=== PATIENT | female | born 1970 | race Caucasian/White ===

== ENCOUNTER 2020-09-10 11:46 | Outpatient (REF) | payer OTHER, SELFPAY ==
[2020-09-10 12:54] LABS: MANUAL DIFF FLAG NO
[2020-09-10 13:02] LABS: Basophils Percent Auto 0.3 % (0-2); Eosinophils Absolute Auto 0.4 X10*3/uL (0.0-0.4); Eosinophils Percent Auto 6.7 % (0-4); Hemoglobin 12.3 g/dl (12.0-16.0); Imm Gran Abs Auto 0.01 X10*3/uL (0.00-0.03); Imm Gran Pct Auto 0.2 % (0.0-0.4); Lymphocytes Absolute Auto 2.2 X10*3/uL (1.2-4.9); Lymphocytes Percent Auto 36.1 % (20-40); Mean Corpuscular HGB Conc 34.2 g/dl (31.0-35.0); Mean Corpuscular Hemoglobin 31.3 pg (27.0-33.0); Mean Corpuscular Volume 91.6 fL (80-98); Mean Platelet Volume 9.4 fL (9.4-12.3); Monocytes Absolute Auto 0.4 X10*3/uL (0.1-1.2); Monocytes Percent Auto 6.4 % (2-11); Neutrophils Absolute Auto 3.1 X10*3/uL (2.0-8.3); Neutrophils Percent Auto 50.3 % (45-73); Platelet Count 212 X10*3/uL (160-400); Red Blood Count 3.93 X10*6/uL (4.20-5.50); Red Cell Distribution Width 12.8 % (11.0-16.0); White Blood Count 6.1 X10*3/uL (4.8-10.8)
[2020-09-10 13:15] LABS: Alanine Aminotransferase 18 U/L (0-31); Albumin Level 4.3 g/dL (3.5-5.0); Alkaline Phosphatase 72 U/L (39-117); Anion Gap 16 (12-20); Aspartate Amino Transferase 16 U/L (5-31); Bilirubin Total 0.5 mg/dL (0.0-1.0); Blood Urea Nitrogen 15 mg/dL (9-16); Calcium 9.5 mg/dL (8.4-10.2); Carbon Dioxide 26 mmol/L (22-29); Chloride 97 mmol/L (96-108); Cholesterol 198 mg/dL; Estimated Glomerular Filt Rate 38; Glucose Random 80 mg/dL (60-115); HDL Cholesterol 60 mg/dL; LDL Cholesterol Calculated 106 mg/dl; Potassium 4.1 mmol/l (3.3-5.1); Sodium 135 mmol/L (135-145); Total Protein 7.2 g/dL (6.5-8.0); Triglycerides 163 mg/dL
[2020-09-10 13:33] LABS: Vitamin B12 251 pg/mL (200-900)
[2020-09-10 13:36] LABS: Vitamin D 25-OH Total 59.9 ng/mL (>30)
== END 2020-09-10 11:47 | disposition home or self-care (01) ==
LOC: HO.LAB 11:46
PROVIDERS: PCP Internal Medicine; Visit Provider Internal Medicine
DX: I12.9 Hypertensive chronic kidney disease with stage 1 through stage 4 chronic kidney disease, or unspecified chronic kidney disease (principal); N18.30 Chronic kidney disease, stage 3 unspecified; E78.00 Pure hypercholesterolemia, unspecified; J45.909 Unspecified asthma, uncomplicated; E66.9 Obesity, unspecified; K21.9 Gastro-esophageal reflux disease without esophagitis; E55.9 Vitamin D deficiency, unspecified
CPT/HCPCS: 36415; 80053; 80061; 82306; 82607; 84443; 85025

== ENCOUNTER 2020-12-02 11:17 | Outpatient (REF) | payer OTHER, SELFPAY ==
--- NOTE | ~2020-12-02 | MM_ITS ---
EXAMINATION: MM SCREENING DIGITAL BREAST TOMOSYNTHESIS, BILATERAL CLINICAL INFORMATION: Screening. Asymptomatic. The lifetime risk of breast cancer based on the Tyrer-Cuzick Model is 12%. COMPARISON: Mammography: 04/21/2019, 04/20/2018, 01/06/2017 TECHNIQUE: Digital breast tomosynthesis is performed in both the craniocaudal and mediolateral oblique views along with computer-aided detection (CAD). Synthesized 2D images are generated from the tomosynthesis. Additional exaggerated right CC, left CC, left MLO views are provided. FINDINGS: There are scattered areas of fibroglandular density (ACR BI-RADS breast composition Category b). There is fibronodular parenchymal pattern. The left breast appears similar to prior studies. There is no interval mass or architectural abnormality. Neither breast shows abnormal calcifications. The axilla and skin contours are unremarkable. The right MLO view has subtle irregular asymmetric density below posterior nipple line, approximately 8 cm from nipple. There is no correlate on CC view. Finding may represent summation artifact or incompletely compressed glandular tissue. Patient will be recalled for additional imaging. MM/MM tomosynthesis screening BI IMPRESSION: 1. Right: Asymmetric density central lower breast limited to MLO view, possibly summation artifact or incompletely compressed glandular tissue. 2. Left: No mammographic evidence of malignancy. ASSESSMENT: BI-RADS 0: Incomplete - Need Additional Imaging Evaluation RECOMMENDATION: 1. Additional views of the right breast (3-D spot MLO, 3-D ML). 2. Targeted ultrasound if warranted after review of the additional views. 3. Radiology department staff will contact the patient for additional imaging. This patient's information was entered into a reminder system with a target due date for their next mammogram.
== END 2020-12-02 11:18 | disposition home or self-care (01) ==
LOC: HO.MAMMO 11:17
PROVIDERS: PCP Internal Medicine; Visit Provider Internal Medicine
DX: Z12.31 Encounter for screening mammogram for malignant neoplasm of breast (principal)
CPT/HCPCS: 77063; 77067

== ENCOUNTER 2020-12-25 12:29 | Outpatient (REF) | payer OTHER, SELFPAY ==
--- NOTE | ~2020-12-25 | MM_ITS ---
EXAMINATION: MM DIAGNOSTIC DIGITAL BREAST TOMOSYNTHESIS, RIGHT CLINICAL INFORMATION: Right breast asymmetry. COMPARISON: Mammography: 12/02/2020 and studies dating back to 11/12/2011 TECHNIQUE: Digital breast tomosynthesis. Synthesized 2-D images are generated from the tomosynthesis. Performed in 90-degree mediolateral view and spot compression mediolateral oblique view. FINDINGS: There are scattered areas of fibroglandular density (ACR BI-RADS breast composition Category b). The region of density is seen to be compressed out and has a similar appearance to prior studies with no persistent suspicious underlying abnormality identified. Results are provided to the patient at time of visit by the technologist. MM/MM tomosynthesis diagnostic RT IMPRESSION: No persistent suspicious right breast abnormality identified. ASSESSMENT: BI-RADS 1: Negative. RECOMMENDATION: Routine annual mammography screening due in 12 months. This patient's information was entered into a reminder system with a target due date for their next mammogram.
== END 2020-12-25 12:30 | disposition home or self-care (01) ==
LOC: HO.MAMMO 12:29
PROVIDERS: Visit Provider Internal Medicine
DX: R92.2 Inconclusive mammogram (principal)
CPT/HCPCS: 77061; 77065

== ENCOUNTER 2021-01-13 16:30 | Outpatient (REF) | payer OTHER, SELFPAY ==
[2021-01-14 10:47] LABS: BV Int Neg Control Negative (Negative); BV Int Pos Control Positive (Positive)
[2021-01-17 12:36] LABS: HPV mRNA E6/E7 rflx Not Detected (Not Detected)
== END 2021-01-13 16:31 | disposition home or self-care (01) ==
LOC: HO.LAB 16:30
PROVIDERS: PCP Internal Medicine; Visit Provider Internal Medicine
DX: Z12.4 Encounter for screening for malignant neoplasm of cervix (principal); Z11.51 Encounter for screening for human papillomavirus (HPV)
CPT/HCPCS: 87480; 87510; 87624; 87660; 88142

== ENCOUNTER → 2021-03-19 08:54 | Outpatient (BNVA) | payer OTHER, SELFPAY | PROVIDERS: Visit Provider Physician Assistant | CPT/HCPCS: Q3014 ==

== ENCOUNTER 2021-05-01 07:23 | Day surgery (SDC) | payer OTHER, SELFPAY ==
--- NOTE | 2021-04-30 09:45 | HO.ANESPROP2 ---
Documented by User: Clarisa Jeffery NP 04/30/21 09:46 HPI - Anesthesia Eval Consult details Narrative: 51yo F for Colonoscopy PMFSH Active Problems Active Problems: All Active Problems (Updated 03/19/21 @ 10:10 by Claritza Venegas PA-C) Tubulovillous adenoma (Acute) Hematoma (Acute) Vaginal candidiasis (Acute) Cervical cancer screening (Acute) Breast density (Acute) Cyanocobalamin deficiency (Acute) Alcohol abuse (Acute) Tobacco abuse (Acute) Asthma (Acute) Hypercholesterolemia (Acute) Chronic kidney disease, stage III (moderate) (Acute) Obesity (BMI 30-39.9) (Acute) GERD (gastroesophageal reflux disease) (Acute) Hypertension (Acute) Vitamin D deficiency (Acute) Past Medical History Medical History Alcohol abuse Asthma Chronic kidney disease, stage III (moderate) GERD (gastroesophageal reflux disease) Hypercholesterolemia Hypertension Obesity (BMI 30-39.9) Tobacco abuse Tubular adenoma of colon Tubulovillous adenoma Vitamin D deficiency Family History Family History Father HTN (hypertension) CVD (cardiovascular disease) Myocardial infarct Mother Skin cancer Cancer Maternal Grandmother Breast cancer Brother No problems noted. Sister No problems noted. Surgical History Surgical History History of cholecystectomy History of tracheostomy History of ventriculoperitoneal shunting Social History Social History Household Members Other:: no kids, lives with cat, she has a boyfriend does not live with her Alcohol intake: current Alcohol intake frequency: a few times a week Alcohol type: beer Patient Tobacco Use Status: Current everyday Tobacco user Tobacco use type: Cigar Cigarette Packs Per Day: 1 Cigarettes Per Day: 20 Smoked in Last 30 Days: Yes Use of substances other than those prescribed or required for medical reasons: No Are you DNR?: No Advance Directives: No Advance Directives Information Provided: Yes Recently lost weight without trying: No Nutrition Risks: No Nutritional Risk Current occupational status: disabled Meds Allergies Allergy/AdvReac Type Severity Reaction Status Date / Time No Known Allergies Allergy Verified 03/19/21 08:54 surgical tape Allergy Unknown severe rash Uncoded 03/08/21 12:19 Exam Exam Date and Time: April 30, 2021 0945 Assessment and Plan Assessment Anesthesia Assessment: Chart Reviewed Documented by User: Diana Jessica MD 05/01/21 08:02 [facility] Past Medical History Medical History Alcohol abuse Asthma Chronic kidney disease, stage III (moderate) GERD (gastroesophageal reflux disease) Hypercholesterolemia Hypertension Obesity (BMI 30-39.9) Tobacco abuse Tubular adenoma of colon Tubulovillous adenoma Vitamin D deficiency Family History Family History Father HTN (hypertension) CVD (cardiovascular disease) Myocardial infarct Mother Skin cancer Cancer Maternal Grandmother Breast cancer Brother No problems noted. Sister No problems noted. Surgical History Surgical History History of cholecystectomy History of tracheostomy History of ventriculoperitoneal shunting History of Problems with Anesthesia: No Social History Social History Household Members Other:: no kids, lives with cat, she has a boyfriend does not live with her Alcohol intake: current Alcohol intake frequency: a few times a week Alcohol type: beer Patient Tobacco Use Status: Current everyday Tobacco user Tobacco use type: Cigar Cigarette Packs Per Day: 1 Cigarettes Per Day: 20 Smoked in Last 30 Days: Yes Use of substances other than those prescribed or required for medical reasons: No Are you DNR?: No Advance Directives: No Advance Directives Information Provided: Yes Recently lost weight without trying: No Nutrition Risks: No Nutritional Risk Current occupational status: disabled Meds Allergies Allergy/AdvReac Type Severity Reaction Status Date / Time No Known Allergies Allergy Verified 03/19/21 08:54 surgical tape Allergy Unknown severe rash Uncoded 03/08/21 12:19 Exam Airway Mallampati Class: II TM Dist: >3cm Neck ROM: Full Loose/Missing/Broken Teeth: No Heart: RRR Lungs: CTA Assessment and Plan Assessment Anesthesia Assessment: Anesthesia Plan Discussed Final Anesthetic Review History of Problems with Anesthesia: No NPO: Yes ASA Class: III Final Preanesthetic Review: Meds/Allgs Chart Reviewed, Consent Obtained/Reviewed and Anes Risks/Benef Reviewed Patient Risk: Intermediate Procedure Risk: Low Anesthetic Plan Anesthetic Plan: MAC: Disposition: Standard PACU
[2021-05-01 07:30] VITALS: BMI 39.5
[2021-05-01 07:41] VITALS: BP 114/70; PULSE 84; RESP 16; TEMP 35.7; O2SAT 96
[2021-05-01] MEDS: 0.9 % Sodium Chloride 1,000 ML 50 ML IVCONT (07:57)
--- NOTE | 2021-05-01 08:41 | P.HPSUR_ITS ---
Pre-Procedural Eval Section A Date of Service: 05/01/21 Section B Chief Complaint: tubulovillous adenoma Relevant Social History: Tobacco Use Present Medications: see Short Stay Collaborative assessment Medical History: Significant History (Alcohol abuse Asthma Chronic kidney disease, stage III (moderate) GERD (gastroesophageal reflux disease) Hypercholesterolemia Hypertension Obesity (BMI 30-39.9) Tobacco abuse Tubular adenoma of colon Tubulovillous adenoma Vitamin D deficiency) History of Previous Operations: Relevant previous surgery/procedure and date(s) (History of cholecystectomy History of tracheostomy History of ventriculoperitoneal shunting) Allergies: Allergies Allergy/AdvReac Type Severity Reaction Status Date / Time No Known Allergies Allergy Verified 03/19/21 08:54 surgical tape Allergy Unknown severe rash Uncoded 03/08/21 12:19 Review of Systems Sugical H&P ROS: Negative: Constitution, Cardiovascular, Respiratory, Neurological, Psychiatric, Hem-Onc, Allergic/Immunologic, Gastrointestinal, Genitourinary, Musculoskeletal, Integumentary, Endocrine and Eye s/Ears/Nose/Throat Exam Surgical H&P Exam: Normal: HEENT, Normal: Heart, Normal: Lungs, Normal: Extremities, Normal: Abdomen, Normal: Skin and Normal: Neurological Plan Diagnosis/Plan: Unchanged I have reviewed the history and physical and performed a pertinent physical examination on my patient. No changes have occurred unless specified.
--- NOTE | 2021-05-01 09:27 | P.OP_ITS ---
Operative Note Operative Note Date of Service: 05/01/21 Narrative: Operative Information Procedure Description: Colonoscopy COLONOSCOPY Instrument: Olympus variable stiffness adult scope 190L Colonoscopy Monitoring: Vital signs and clinical assessment, continuous EKG monitoring, Pulse oximetry, Carbon Dioxide monitoring and blood pressure monitoring were done throughout the procedure. Colon withdrawal time was 30 minutes. Procedure: The patient was placed in the left lateral decubitis position and pre-procedure medications were administered. After a digital rectal examination of the ano-rectum, the video colonoscope was inserted into the rectum and advanced through the colon to the cecum/TI. The colonoscope was slowly withdrawn in a retrograde panoramic fashion and the colon mucosa was carefully examined including a retroflexed view of the rectum. Findings and interventions are described below. Procedure Difficulty:moderate due to looping Findings: Terminal Ileum- not intubated due to looping Cecum: 5-6 mm sessile polyp removed with forceps Ascending Colon: 8-9 mm sessile polyp removed with forceps Transverse Colon -proximal transverse 10-12 mm sessile polyp over a prior tattoo site, removed with cold snare, then base treated with APC Descending Colon: x 3 sessile polyps removed with cold snare Sigmoid Colon: x 3 sessile polyps in distal sigmoid colon removed with cold snare, many diverticula noted as well Rectum: Retroflexion with small internal hemorrhoids, grade I, proximal rectum with 11-12 mm sessile polyp removed with cold snare and then base ablated with APC Anorectum - normal Colon preparation: [place] Bowel Preparation Scale Right colon; 2 Transverse colon: 2 Left colon; 2 (0 = Unprepared colon segment with mucosa not seen due to solid stool that cannot be cleared. 1 = Portion of mucosa of the colon segment seen, but other areas of the colon segment not well seen due to staining, residual stool and/or opaque liquid. 2 = Minor amount of residual staining, small fragments of stool and/or opaque liquid, but mucosa of colon segment seen well. 3 = Entire mucosa of colon segment seen well with no residual staining, small fragments of stool or opaque liquid) Impression and Post Procedure Diagnosis: polyps internal hemorrhoids diverticular disease Plan: High fiber diet leaflet Avoid straining at stool, epsom salts and sitz bath, anusol supps or cream Repeat Colonoscopy in 6-12 months or earlier if clinically indicated Above findings were reviewed with the patient and relevant handouts were provided if indicated.
--- NOTE | 2021-05-01 09:27 | P.BOP_ITS ---
Brief Operative Note Date of Service: 05/01/21 Pre-op diagnosis: hx of polyps Post-op diagnosis: same Procedure: see op note Surgeon: Maegan Hagen MD Anesthesia: MAC Was an [employer] used for this Procedure?: No Estimated blood loss (mL): 0 Condition: stable Disposition: PACU
[2021-05-01 09:32] VITALS: BP 83/61; PULSE 72; RESP 18; TEMP 36.3; O2SAT 98
[2021-05-01 09:43] VITALS: BP 94/47; PULSE 80; RESP 18; O2SAT 97
[2021-05-01 09:53] VITALS: BP 100/61; PULSE 63; RESP 18; TEMP 36.1; O2SAT 100
== END 2021-05-01 10:26 | disposition home or self-care (01) ==
PROVIDERS: PCP Internal Medicine; Visit Provider Internal Medicine Gastroenterology
PROC: 0DJD8ZZ Inspection of Lower Intestinal Tract, Via Natural or Artificial Opening Endoscopic (ICD-10-PCS; CPT 45378; principal; 2021-05-01 08:30)
DX: Z12.11 Encounter for screening for malignant neoplasm of colon (principal); D12.0 Benign neoplasm of cecum; D12.2 Benign neoplasm of ascending colon; D12.3 Benign neoplasm of transverse colon; K63.5 Polyp of colon; D12.8 Benign neoplasm of rectum; K56.2 Volvulus; K64.0 First degree hemorrhoids; K57.30 Diverticulosis of large intestine without perforation or abscess without bleeding; I12.9 Hypertensive chronic kidney disease with stage 1 through stage 4 chronic kidney disease, or unspecified chronic kidney disease; N18.30 Chronic kidney disease, stage 3 unspecified; Z86.010 Personal history of colon polyps
CPT/HCPCS: 45385; 45380; 88305

== ENCOUNTER 2021-05-11 20:37 | Emergency (ER) | payer OTHER, SELFPAY ==
[2021-05-11 22:29] VITALS: BP 137/79; PULSE 81; RESP 18; TEMP 36.2; O2SAT 98; BMI 39.5
--- NOTE | 2021-05-11 23:50 | ED_ITS ---
HPI - General Adult General Chief complaint: Skin/Abscess/Foreign Body Stated complaint: Tick bite History of Present Illness HPI narrative: Patient presents to ED for possible left thigh tick bite. Patient states she was showering and notice an of redness with something black on and she pulled it off and putting plastic bag came to the ED for evaluation. Patient states she did not have any redness yesterday on thigh or black spot on top of redness. Related Data Previous Rx's Medication Instructions Recorded cholecalciferol (vitamin D3) 50 50 mcg PO DAILY #90 tab 06/02/20 mcg (2,000 unit) tablet famotidine 20 mg tablet 20 mg PO BID #180 cap 09/26/20 hydrochlorothiazide 12.5 mg tablet 12.5 mg PO QAM #90 cap 12/03/20 cyanocobalamin (vitamin B-12) 1,000 mcg PO DAILY 90 Days #90 cap 03/04/21 1,000 mcg capsule lisinopril 10 mg tablet 10 mg PO DAILY #90 tab 03/04/21 thiamine HCl (vitamin B1) 50 mg 50 mg PO DAILY 90 Days #90 tab 03/04/21 tablet peg-electrolyte solution 420 gram 240 ml PO ONCE 1 Days #4000 ml 03/19/21 oral solution (TriLyte With Flavor Packets) Allergies Allergy/AdvReac Type Severity Reaction Status Date / Time No Known Allergies Allergy Verified 03/19/21 08:54 surgical tape Allergy Unknown severe rash Uncoded 03/08/21 12:19 Review of Systems Constitutional: Constitutional: Reports as per HPI and Reports no additional constitutional complaints Eyes: Eyes: Reports as per HPI and Reports no additional eye complaints ENT: Reports system reviewed and no additional complaints, except as documented and Reports as per HPI Cardiovascular: Cardiovascular: Reports as per HPI and Reports no additional cardiovascular complaints Respiratory: Respiratory: Reports as per HPI and Reports no additional respiratory complaints Gastrointestinal: Gastrointestinal: Reports as per HPI and Reports no additional gastrointestinal complaints Genitourinary: Genitourinary: Reports no additional female genitourinary complaints and Reports as per HPI Musculoskeletal: Musculoskeletal: Reports no additional musculoskeletal complaints and Reports as per HPI Comments: Live the possible tick bite. Neurologic: Reports system reviewed and no additional complaints, except as documented and Reports as per HPI Psychiatric: Psychiatric: Reports no additional psychiatric complaints and Reports as per HPI [facility] Past Medical History Medical History Alcohol abuse Asthma Chronic kidney disease, stage III (moderate) GERD (gastroesophageal reflux disease) Hypercholesterolemia Hypertension Obesity (BMI 30-39.9) Tobacco abuse Tubular adenoma of colon Tubulovillous adenoma Vitamin D deficiency Surgical History History of cholecystectomy History of tracheostomy History of ventriculoperitoneal shunting Family History Family History Father HTN (hypertension) CVD (cardiovascular disease) Myocardial infarct Mother Skin cancer Cancer Maternal Grandmother Breast cancer Brother No problems noted. Sister No problems noted. Social History Social History Household Members Other:: no kids, lives with cat, she has a boyfriend does not live with her Alcohol intake: current Alcohol intake frequency: a few times a week Alcohol type: beer Patient Tobacco Use Status: Current everyday Tobacco user Tobacco use type: Cigar Cigarette Packs Per Day: 1 Cigarettes Per Day: 20 Advance Directives: No Advance Directives Information Provided: Yes Patient : No Current occupational status: disabled Physical Exam Vital Signs: Vital Signs: Last Vital Signs Temp 97.1 F 05/11/21 22:29 Pulse 81 05/11/21 22:29 Resp 18 05/11/21 22:29 BP 137/79 05/11/21 22:29 Pulse Ox 98 05/11/21 22:29 Body Mass Index 39.5 Const: General: cooperative, healthy appearing, comfortable, no acute distress, well developed, alert, awake and Physically active Orientation/consciousness: patient oriented x3 HENMT: Head: Yes normal to inspection, Yes No palpable skull fracture present, Yes normocephalic, Yes atraumatic and No abrasion Eyes: General: appearance normal, both eyes and all related structures Neck: Neck: Yes normal visual inspection, Yes full ROM, Yes no lymphadenopathy, Yes no meningeal signs, Yes trachea midline, Yes supple and No tender Chest: Chest palpation & inspection: normal inspection of the chest and normal palpation of entire chest wall Resp: Effort & Inspection: normal respiratory effort and able to speak in complete sentences Auscultation: clear to auscultation bilaterally Cardio: Jugular venous distension: no JVD Heart sounds: S1 normal heart sound present and S2 normal heart sound present GI: Inspection: Yes normal to inspection and No abdominal wall ecchymosis Palpation (GI): Soft to palpation, not firm, nontender, no guarding and not rigid : General: No CVA tenderness and Yes no CVA tenderness Back/Spine/Pelvis: Back: no CVA tenderness, No CVA tenderness and No back tenderness Skin: General skin exam: no rashes or lesions noted and elasticity normal Neuro: General: patient oriented x3, gait normal and no meningeal signs Cranial nerves: Yes CN's II-XII intact bilaterally Extrem: General: Yes normal to inspection and Yes full ROM Knee images: 1. Small area of erythema negative for any bull's eye. Negative for palpable cord. Psych: Appearance: grossly normal, well kempt and not disheveled Course Course Course Narrative: Patient came to the ED with plastic bag with containing tick. Continent in bag was examined and looks more like a scab more than actual tick. Reevaluation(s) Reevaluation #1: Although Content in bag looked more like scab instead of tick. There is possibility tick may have fallen off. Patient denies any fever or chills. Will give prophylactic doxycycline 200 mg 1 dose. Time: 13:43 Medical Decision Making MDM Narrative Medical decision making narrative: tick bite Discharge Plan Discharge Clinical Impression: Tick bite Patient Disposition: Home, Self-Care Instructions: Tick Bite (ED) Additional Instructions: You were treated with doxycycline 1 dose prophylactically for for potential tick bite. Return to ED for any swelling of area, profuse redness, fever, chills, calf pain, red streaks, shortness of breath, or any other concerning symptoms. Please follow-up with PCP Prescriptions: No Action cholecalciferol (vitamin D3) 50 mcg (2,000 unit) tablet 50 mcg PO DAILY Qty: 90 RF: 0 famotidine 20 mg tablet 20 mg PO BID Qty: 180 RF: 0 hydrochlorothiazide 12.5 mg tablet 12.5 mg PO QAM Qty: 90 RF: 2 lisinopril 10 mg tablet 10 mg PO DAILY Qty: 90 RF: 2 cyanocobalamin (vitamin B-12) 1,000 mcg capsule 1,000 mcg PO DAILY 90 Days Qty: 90 RF: 3 thiamine HCl (vitamin B1) 50 mg tablet 50 mg PO DAILY 90 Days Qty: 90 RF: 3 peg-electrolyte soln [TriLyte With Flavor Packets] 420 gram recon soln 240 ml PO ONCE 1 Days Qty: 4000 RF: 0 Interventions: ED Discharge Assessment Last Done: 05/12/21 00:06 Discharge Date/Time: 05/12/21 00:19 Print Language: Senegalese
== END 2021-05-12 00:19 | disposition home or self-care (01) ==
PROVIDERS: Emergency Provider Student in an Organized Health Care Education/Training Program; PCP Internal Medicine
DX: S70.362A Insect bite (nonvenomous), left thigh, initial encounter (principal); M79.652 Pain in left thigh; F17.200 Nicotine dependence, unspecified, uncomplicated; W57.XXXA Bitten or stung by nonvenomous insect and other nonvenomous arthropods, initial encounter; Y93.9 Activity, unspecified; Y92.9 Unspecified place or not applicable; Y99.9 Unspecified external cause status; Z79.899 Other long term (current) drug therapy; Z71.6 Tobacco abuse counseling
CPT/HCPCS: 99283

== ENCOUNTER → 2021-05-26 14:08 | Outpatient (BNVA) | payer OTHER, SELFPAY | PROVIDERS: PCP Internal Medicine; Visit Provider Physician Assistant | CPT/HCPCS: Q3014 ==

== ENCOUNTER → 2021-11-24 14:13 | Outpatient (BNVA) | payer OTHER, SELFPAY | PROVIDERS: PCP Internal Medicine; Visit Provider Physician Assistant | DX: D36.9 Benign neoplasm, unspecified site (principal) | CPT/HCPCS: 99212 ==

== ENCOUNTER 2021-12-05 13:54 | Outpatient (REF) | payer OTHER, SELFPAY ==
[2021-12-05 14:05] LABS: MANUAL DIFF FLAG NO
[2021-12-05 14:31] LABS: Basophils Percent Auto 0.3 % (0-2); Eosinophils Absolute Auto 0.3 X10*3/uL (0.0-0.4); Eosinophils Percent Auto 4.6 % (0-4); Hematocrit 37.5 % (37.0-47.0); Hemoglobin 11.9 g/dl (12.0-16.0); Imm Gran Abs Auto 0.02 X10*3/uL (0.00-0.03); Imm Gran Pct Auto 0.3 % (0.0-0.4); Lymphocytes Absolute Auto 2.1 X10*3/uL (1.2-4.9); Lymphocytes Percent Auto 35.8 % (20-40); Mean Corpuscular HGB Conc 31.7 g/dl (31.0-35.0); Mean Corpuscular Hemoglobin 29.5 pg (27.0-33.0); Mean Corpuscular Volume 93.1 fL (80.0-98.0); Monocytes Absolute Auto 0.4 X10*3/uL (0.1-1.2); Monocytes Percent Auto 7.6 % (2-11); Neutrophils Percent Auto 51.4 % (45-73); Platelet Count 231 X10*3/uL (160-400); Red Blood Count 4.03 X10*6/uL (4.20-5.50); Red Cell Distribution Width 12.7 % (11.0-16.0); White Blood Count 5.8 X10*3/uL (4.8-10.8)
[2021-12-05 14:42] LABS: Estimated Average Glucose 103 mg/dL; Hemoglobin A1c % 5.2 %
[2021-12-05 14:44] LABS: Alanine Aminotransferase 66 U/L (0-31); Albumin Level 4.3 g/dL (3.5-5.0); Alkaline Phosphatase 128 U/L (39-117); Anion Gap 13 (12-20); Aspartate Amino Transferase 35 U/L (5-31); Bilirubin Total 0.4 mg/dL (0.0-1.0); Blood Urea Nitrogen 25 mg/dL (9-16); Calcium 9.8 mg/dL (8.4-10.2); Carbon Dioxide 30 mmol/L (22-29); Chloride 100 mmol/L (96-108); Cholesterol 192 mg/dL; Estimated Glomerular Filt Rate 40; Glucose Random 96 mg/dL (60-115); HDL Cholesterol 55 mg/dL; LDL Cholesterol Calculated 106 mg/dl; Potassium 3.9 mmol/L (3.3-5.1); Sodium 139 mmol/L (135-145); Total Protein 7.5 g/dL (6.5-8.0); Triglycerides 155 mg/dL
[2021-12-05 15:04] LABS: Free T4 (Free Thyroxine) 0.93 ng/dL (0.71-1.85); Thyroid Stimulating Hormone 2.38 uIU/mL (0.32-4.0); Vitamin D 25-OH Total 61.6 ng/mL (>30)
[2021-12-05 15:25] LABS: Folate 7.8 ng/mL (> or = 4.0); Vitamin B12 > 2000 pg/mL (200-900)
== END 2021-12-05 13:55 | disposition home or self-care (01) ==
LOC: HO.LAB 13:54
PROVIDERS: PCP Internal Medicine; Visit Provider Internal Medicine
DX: E78.00 Pure hypercholesterolemia, unspecified (principal)
CPT/HCPCS: 36415; 80053; 80061; 82306; 82607; 82746; 83036; 84439; 84443; 85025

== ENCOUNTER 2021-12-08 13:00 | Outpatient (REF) | payer OTHER, SELFPAY ==
--- NOTE | ~2021-12-08 | MM_ITS ---
EXAMINATION: MM SCREENING DIGITAL BREAST TOMOSYNTHESIS, BILATERAL CLINICAL INFORMATION: Screening. Asymptomatic. The lifetime risk of breast cancer based on the Tyrer-Cuzick Model is 18%. COMPARISON: Mammography: 12/25/2020, 12/02/2020, 04/21/2019, 04/20/2018, 01/06/2017 TECHNIQUE: Digital breast tomosynthesis is performed in both the craniocaudal and mediolateral oblique views along with computer-aided detection (CAD). Synthesized 2D images are generated from the tomosynthesis. Additional exaggerated left CC view is provided. FINDINGS: There are scattered areas of fibroglandular density (ACR BI-RADS breast composition Category b). Fibronodular parenchymal pattern is similar to prior studies. There is no developing density or interval significant mass or architectural abnormality. Small nodular asymmetry outer left breast is stable. There is no developing density. No abnormal calcifications. The axilla and skin contours are unremarkable. MM/MM tomosynthesis screening BI IMPRESSION: No significant changes from prior exams. ASSESSMENT: BI-RADS 2: Benign RECOMMENDATION: Routine annual mammography screening. This patient's information was entered into a reminder system with a target due date for their next mammogram.
== END 2021-12-08 13:01 | disposition home or self-care (01) ==
LOC: HO.MAMMO 13:00
PROVIDERS: Visit Provider Internal Medicine
DX: Z12.31 Encounter for screening mammogram for malignant neoplasm of breast (principal)
CPT/HCPCS: 77063; 77067

== ENCOUNTER 2022-03-10 10:29 | Emergency (ER) | payer OTHER, SELFPAY ==
[2022-03-10 10:45] VITALS: BP 118/79; PULSE 72; RESP 19; TEMP 36.6; O2SAT 98; BMI 39.5
[2022-03-10 13:56] VITALS: BP 119/83; PULSE 63; RESP 16; TEMP 36.4; O2SAT 99
--- NOTE | 2022-03-10 14:08 | ED_ITS ---
HPI - Wound/Laceration General Chief Complaint: Wound/Laceration Stated Complaint: Wound Under R Breast Time Seen by Provider: 03/10/22 14:08 Source: patient Mode of arrival: ambulatory History of Present Illness HPI narrative: 52-year-old female with a past medical history of ETOH abuse, asthma, CKD, GERD, hyperlipidemia, hypertension, tobacco use, presenting to the ED complaining of right breast wound since yesterday. Reports area slightly bleeding & with mild pain. Denies injury/fall, skin changes, nipple discharge, mass, fever Onset (ago): day(s) Location: chest Related Data Home Medications Medication Instructions Recorded Confirmed zinc 50 mg tablet 50 mg PO DAILY 12/05/21 12/05/21 Previous Rx's Medication Instructions Recorded cholecalciferol (vitamin D3) 50 50 mcg PO DAILY #90 tabs 06/02/21 mcg (2,000 unit) tablet hydrochlorothiazide 12.5 mg tablet 12.5 mg PO QAM #90 caps 08/31/21 lisinopril 10 mg tablet 10 mg PO DAILY #90 tabs 12/01/21 peg-electrolyte solution 420 gram 240 ml PO ONCE 1 day #4,000 mL 12/29/21 oral solution cyanocobalamin (vitamin B-12) 1,000 mcg PO DAILY 90 days #90 caps 03/03/22 1,000 mcg capsule famotidine 20 mg tablet 20 mg PO BID #180 caps 03/03/22 thiamine HCl (vitamin B1) 50 mg 50 mg PO DAILY 90 days #90 tabs 03/03/22 tablet cephalexin 500 mg capsule 500 mg PO QID 7 days #28 caps 03/10/22 mupirocin 2 % topical ointment 1 appl topical BID 7 days #22 grams 03/10/22 Allergies Allergy/AdvReac Type Severity Reaction Status Date / Time surgical tape Allergy Unknown severe rash Uncoded 12/05/21 13:07 Review of Systems Review of Systems: Constitutional: No Fever, No Chills, No Fatigue, No Malaise ENT/Mouth: No Ear Pain, No Nasal Congestion, No sore throat, No Rhinorrhea, No Swallowing Difficulty Eyes: No Eye Pain, No Swelling, No Redness, No Vision Changes Cardiovascular: No Chest Pain, No SOB, No Edema, No Palpitations Respiratory: No Cough, No Sputum, No Dyspnea Gastrointestinal: No Nausea, No Vomiting, No Diarrhea, No Constipation, No Abdominal pain Genitourinary: No irregular bleeding, No Dysuria, No Urinary Frequency, No Hematuria Musculoskeletal: No joint pain, No Myalgias, No Joint Swelling Skin: + Skin Lesions, No rash Neuro: No Weakness, No Numbness, No Paresthesias, No Headache Yes all other systems are reviewed and are negative [facility] Past Medical History Attestation statement: The following information was validated with the patient. Medical History Alcohol abuse Asthma Chronic kidney disease, stage III (moderate) GERD (gastroesophageal reflux disease) Hypercholesterolemia Hypertension Obesity (BMI 30-39.9) Tobacco abuse Tubular adenoma of colon Tubulovillous adenoma Vitamin D deficiency Surgical History History of cholecystectomy History of tracheostomy History of ventriculoperitoneal shunting Family History Family History Father HTN (hypertension) CVD (cardiovascular disease) Myocardial infarct Substance abuse Mother Skin cancer Cancer Maternal Grandmother Breast cancer Brother No problems noted. Sister No problems noted. Social History Social History Household Members Other:: no kids, lives with cat, she has a boyfriend does not live with her Housing: Apartment Alcohol intake: current Alcohol intake frequency: a few times a week Alcohol type: beer Patient Tobacco Use Status: Current everyday Tobacco user Tobacco use type: Cigar Cigarette Packs Per Day: 1 Cigarettes Per Day: 20 Years Smoked: states stopped 10/2021 e-Cigarette/Vaping Use: Never Used Second Hand Smoke Exposure: No Advance Directives: No Advance Directives Information Provided: No Current occupational status: disabled Cognitive needs: No Hearing needs: No Vision needs: Yes Physical Exam Vital Signs: Vital Signs: Last Vital Signs Temp 97.5 F 03/10/22 13:56 Pulse 63 03/10/22 13:56 Resp 16 03/10/22 13:56 BP 119/83 03/10/22 13:56 Pulse Ox 99 03/10/22 13:56 O2 Del Method 03/10/22 13:56 BMI result Body Mass Index 39.5 Const: General: cooperative, healthy appearing and no acute distress Orientation/consciousness: patient oriented x3 Limitations: no limitations HEENT: Head: Yes normal to inspection and Yes atraumatic Ears: hearing grossly normal bilaterally General nose exam: Normal external nose present Face and sinus: Yes normal facial exam Eyes: General: appearance normal, both eyes and all related structures EOM: EOMs intact bilaterally Neck: Neck: Yes normal visual inspection and Yes no meningeal signs Chest: Other: Right breast at 07:00 o'clock region small infected superficial follicle with dry blood and surrounding erythema. No appreciable fluctuance/mass or induration. No streaking + bilateral breast subareolar dense areas, mobile, no fluctuance/induration No skin changes. No nipple discharge Chest palpation & inspection: no crepitus Breast/axilla palpation: normal palpation of the axillae and no axillary lymphadenopathy Resp: Effort & Inspection: normal respiratory effort and no respiratory distress Cardio: Rate: regular rate Heart sounds: S1 normal heart sound present and S2 normal heart sound present GI: Inspection: Yes normal to inspection Palpation (GI): Soft to palpation, nontender and no guarding Skin: Rashes: no rashes Neuro: General: patient oriented x3, tone normal and no meningeal signs Gait exam (Neuro): Normal gait present Extrem: General: Yes normal to inspection MDM - Wound/Laceration MDM Narrative Medical decision making narrative: 52-year-old female with a past medical history of ETOH abuse, asthma, CKD, GERD, hyperlipidemia, hypertension, tobacco use, presenting to the ED complaining of right breast wound since yesterday. On exam VSS, NAD, well appearing, PE as above. Concern for folliculitis vs healing abscess vs cellulitis. No evidence of drainable collection Plan: P.o. antibiotics, mupirocin, PCP follow-up for mammogram Differential Diagnosis Differential diagnosis: Likely abscess, abrasion and avulsion of skin Medical Records Attestation: I reviewed the patient's medical records. Lab Data Attestation: I reviewed the patient's lab results. Discharge Plan Discharge Clinical Impression: Folliculitis Patient Disposition: Home, Self-Care Instructions: Folliculitis (ED) Additional Instructions: It looks like you have an infected follicle/potential abscess that popped. Keflex as an antibiotic please take as prescribed. In addition mupirocin as a topical antibiotic ointment Please follow-up with her doctor. If symptoms persist or worsen, you develop skin changes, drainage from her nipple, or fever return to the emergency department Prescriptions: New cephalexin 500 mg capsule 500 mg PO QID 7 Days Qty: 28 0RF mupirocin 2 % ointment 1 appl topical BID 7 Days Qty: 22 0RF No Action cholecalciferol (vitamin D3) 50 mcg (2,000 unit) tablet 50 mcg PO DAILY Qty: 90 3RF hydrochlorothiazide 12.5 mg tablet 12.5 mg PO QAM Qty: 90 2RF lisinopril 10 mg tablet 10 mg PO DAILY Qty: 90 2RF peg-electrolyte soln 420 gram recon soln 240 ml PO ONCE 1 Days Qty: 4000 0RF Rx Instructions: Start at 6:00pm the evening before procedure, drink one 8oz glass every 15 minutes until complete famotidine 20 mg tablet 20 mg PO BID Qty: 180 2RF thiamine HCl (vitamin B1) 50 mg tablet 50 mg PO DAILY 90 Days Qty: 90 3RF cyanocobalamin (vitamin B-12) 1,000 mcg capsule 1,000 mcg PO DAILY 90 Days Qty: 90 3RF zinc 50 mg tablet 50 mg PO DAILY Referrals: Po,Tio Esposito MD [Primary Care Provider] - 3 days Interventions: ED Discharge Assessment Last Done: 03/10/22 14:24 Discharge Date/Time: 03/10/22 14:26
== END 2022-03-10 14:26 | disposition home or self-care (01) ==
PROVIDERS: Emergency Provider Emergency Medicine; PCP Internal Medicine
DX: L73.9 Follicular disorder, unspecified (principal); N64.4 Mastodynia; F17.210 Nicotine dependence, cigarettes, uncomplicated; Z71.6 Tobacco abuse counseling; Z79.899 Other long term (current) drug therapy
CPT/HCPCS: 99283

== ENCOUNTER 2022-05-06 14:12 | Outpatient (REF) | payer OTHER, SELFPAY ==
[2022-05-09 11:37] LABS: Alpha 1 Anti-trypsin 109 mg/dL (83-199)
== END 2022-05-06 14:13 | disposition home or self-care (01) ==
LOC: HO.LAB 14:12
PROVIDERS: PCP Internal Medicine; Visit Provider Internal Medicine
DX: J45.20 Mild intermittent asthma, uncomplicated (principal)
CPT/HCPCS: 36415; 82103

== ENCOUNTER 2022-10-20 08:29 | Day surgery (SDC) | payer OTHER, SELFPAY ==
[2022-10-13 14:48] VITALS: BMI 40.8
[2022-10-20 08:51] VITALS: BP 113/70; PULSE 91; RESP 17; TEMP 36.1; O2SAT 97
[2022-10-20] MEDS: Lactated Ringers 1,000 ML 50 ML IVCONT (09:00)
--- NOTE | 2022-10-20 09:25 | MHC.SHP ---
Pre-Procedural Eval Section A Date of Service: 10/20/22 Section B Chief Complaint: Personal hx of advanced adenomas Details of Present Illness: PMH: Alcohol abuse Asthma Chronic kidney disease, stage III (moderate) GERD (gastroesophageal reflux disease) Hypercholesterolemia Hypertension Obesity (BMI 30-39.9) Tobacco abuse Tubular adenoma of colon Tubulovillous adenoma Vitamin D deficiency Surgical History History of cholecystectomy History of tracheostomy History of ventriculoperitoneal shunting Relevant Family History (Specify if Yes): No Relevant Social History: None Present Medications: see Short Stay Collaborative assessment Medical History: Significant History (as above ) History of Previous Operations: Relevant previous surgery/procedure and date(s) (as above ) Allergies: Allergies Allergy/AdvReac Type Severity Reaction Status Date / Time surgical tape Allergy Severe severe rash Uncoded 10/20/22 08:44 Review of Systems Review of Systems Comment: Ten point ROS negative Exam Exam Comment: Gen appear: No acute distress HEENT: no icterus Chest: No overt resp distress Abd: soft, nontender, nondistended Psych: Stable affect, answering questions appropriately Neuro: A/Ox3 noted to move all extremities spontaneously Ext: no peripheral edema Plan Diagnosis/Plan: Unchanged I have reviewed the history and physical and performed a pertinent physical examination on my patient. No changes have occurred unless specified. Time Spent With Patient Time: Total time managing care of this patient today ____ minutes.
--- NOTE | 2022-10-20 09:26 | P.OP_ITS ---
Operative Note Operative Note Date of Service: 10/20/22 Narrative: Procedure: Colonoscopy Indication: Personal history of polyps Endoscopist: Bren Stanley MD Anesthesia Provider: Dr Janine Velez Anesthesia type: MAC Instrument: Olympus [id number]-H190L Consent: Indication, risks vs benefits, and alternatives were discussed with the patient who gave written informed consent to proceed. EKG, pulse, pulse oximetry and blood pressure were monitored throughout the procedure. Please see anesthesia flowsheet. Procedure: The patient was brought to the procedure room and placed in the left lateral decubitus position. IV medications were administered by the anesthesia provider in attendance. A digital rectal exam was performed which was normal. The colonoscope was then inserted through the anus and advanced through the colon to the cecum at 85 cm,and terminal ileum. Mucosa was carefully examined under high definition white light as the instrument was slowly withdrawn in a retrograde panoramic fashion. Retroflexion was performed in rectum. The procedure was not difficult. There were no immediate obvious complications. The quality of the prep was BBPS: 2+3+2 = adequate Withdrawal time 54 minutes. Limitations: No limitations. Findings: Mucosa: Previous tattoo site noted at 50 cm without any residual or recurrent polyp around it. Otherwise normal to cecum and terminal ileum. Protruding lesions: * 4 cm semi-pedunculated subepithelial nodule was noted in ascending colon. Part of it was unroofed with a cold snare which revealed underlying fatty tissue. Cold forceps biopsies were obtained. * 1 sessile polyp of size 3 mm in ascending colon. Cold snare polypectomy was performed. The polyp was completely removed and retrieved. * 1 sessile polyp of size 5 mm in ascending colon. Cold forceps polypectomy was performed. The polyp was completely removed and retrieved. * 4 sessile polyp of size 3-10 mm in transverse colon. Cold snare polypectomy was performed. The polyps were completely removed and retrieved. * 2 sessile polyp of size 4-8 mm in descending colon. Cold snare polypectomy was performed. The polyps were completely removed and retrieved. * 2 sessile polyp of size 4-5 mm in sigmoid colon. Cold snare polypectomy was performed. The polyps were completely removed and retrieved. * 1 sessile polyp of size 7 mm in rectum. Cold snare polypectomy was performed. The polyp was completely removed and retrieved. * In addition there were numerous pearlescent hyperplastic appearing polyps in distal sigmoid colon and rectum. * Medium internal hemorrhoids without stigmata of recent bleeding. Excavated lesions: * Moderate diverticulosis of left sided colon. Impression: 1. Previous tattoo at 50 cm without any residual polyp tissue. 2. Lipoma in ascending colon (biopsy) 3. Total of 11 polyps removed from ascending, transverse, descending, sigmoid colon and rectum. 4. Internal hemorrhoids 5. Diverticulosis Recommendations: - Follow path results. - Will need to review lifetime adenoma burden as may need genetics referral to r/o polyposis syndrome. - Repeat colonoscopy in 3 years if 3 or more polyps are adenomas or sessile serrated.
--- NOTE | 2022-10-20 09:46 | HO.ANESPROP2 ---
HPI - Anesthesia Eval Consult details Narrative: ho polyp PMFSH Active Problems Active Problems: All Active Problems (Updated 10/13/22 @ 14:52 by Farhana Escobar RN) Alcohol abuse (Acute) Cyanocobalamin deficiency (Acute) Breast density (Acute) Cervical cancer screening (Acute) Vaginal candidiasis (Acute) Hematoma (Acute) Annual physical exam (Acute) Breast cancer screening by mammogram (Acute) Obesity (Acute) Laceration of right breast (Acute) Rosacea (Acute) Tubulovillous adenoma (Acute) Tobacco abuse (Acute) Asthma (Acute) Hypercholesterolemia (Acute) Chronic kidney disease, stage III (moderate) (Acute) Obesity (BMI 30-39.9) (Acute) GERD (gastroesophageal reflux disease) (Acute) Hypertension (Acute) Vitamin D deficiency (Acute) Past Medical History Medical History Alcohol abuse Asthma Chronic kidney disease, stage III (moderate) GERD (gastroesophageal reflux disease) Hypercholesterolemia Hypertension Obesity (BMI 30-39.9) Tobacco abuse Tubular adenoma of colon Tubulovillous adenoma Vision loss, bilateral Vitamin D deficiency Family History Family History Father HTN (hypertension) CVD (cardiovascular disease) Myocardial infarct Substance abuse Mother Skin cancer Cancer Maternal Grandmother Breast cancer Brother No problems noted. Sister No problems noted. Surgical History Surgical History H/O colonoscopy History of cholecystectomy History of tracheostomy History of ventriculoperitoneal shunting History of Problems with Anesthesia: No Social History Social History (Updated 10/13/22 @ 14:48 by Farhana Escobar RN) Household Members: None Housing: Apartment Are you a primary technical healthcare consultant to a significant other at home: No Do you presently have visiting nurse or other home services: No Alcohol intake: current Alcohol intake frequency: a few times a week Alcohol type: beer Patient Tobacco Use Status: Former Tobacco user Quit Date: 05/2022 Tobacco use type: Cigarette Cigarette Packs Per Day: 1 Cigarettes Per Day: 20.0 Years Smoked: 23 e-Cigarette/Vaping Use: Never Used Second Hand Smoke Exposure: No Use of substances other than those prescribed or required for medical reasons: Yes Substance Use Type Other:: marijuana edibles on occasion Have you been hit, kicked, punched, or otherwise hurt by someone within the past year? If so, by whom?: No Are you DNR?: No Advance Directives: No Advance Directives Information Provided: Yes Advance Directives on File: No Recently lost weight without trying: No Eating poorly because of decreased appetite: No Nutrition Risks: No Nutritional Risk Patient : No Poor oral hygiene: No service: No Current occupational status: disabled Cognitive needs: No Hearing needs: No Vision needs: Yes Meds Allergies Allergy/AdvReac Type Severity Reaction Status Date / Time surgical tape Allergy Severe severe rash Uncoded 10/20/22 08:44 Active Medications: Current Medications Lactated Ringer's (Lr) 1,000 mls @ 50 mls/hr IVCONT .Q20H JULIUS Last Admin: 10/20/22 09:00 Dose: 50 mls/hr Home Medications Medication Instructions Recorded Confirmed Last Taken Type zinc 50 mg tablet 100 mg PO DAILY 12/05/21 10/20/22 Unknown History biotin 1 mg tablet 1 mg PO DAILY 04/14/22 10/13/22 Unknown History Exam Exam Date and Time: October 20, 2022 0946 Height,Weight and Vital Signs: Height 5 ft 8 in Weight 122.016 kg Last Vital Signs Temp 96.9 F 10/20/22 08:51 Pulse 91 10/20/22 08:51 Resp 17 10/20/22 08:51 BP 113/70 10/20/22 08:51 Pulse Ox 97 10/20/22 08:51 O2 Del Method 10/20/22 08:51 Airway Mallampati Class: II TM Dist: >3cm Neck ROM: Full Heart: rr Lungs: cta Assessment and Plan Final Anesthetic Review History of Problems with Anesthesia: No ASA Class: III Final Preanesthetic Review: No Changes in Pt Med Stat, Meds/Allgs Chart Reviewed, Consent Obtained/Reviewed and Anes Risks/Benef Reviewed Patient Risk: Low Procedure Risk: Low Anesthetic Plan Anesthetic Plan: MAC: Disposition: Standard PACU
[2022-10-20 10:43] VITALS: BP 106/53; PULSE 83; RESP 16; TEMP 36.6; O2SAT 98
[2022-10-20 10:58] VITALS: BP 102/58; PULSE 67; RESP 18; TEMP 36.1; O2SAT 98
[2022-10-20 11:11] VITALS: BP 104/58; PULSE 68; RESP 18; TEMP 36.6; O2SAT 98
== END 2022-10-20 11:25 | disposition home or self-care (01) ==
PROVIDERS: PCP Internal Medicine; Visit Provider Internal Medicine
PROC: 0DJD8ZZ Inspection of Lower Intestinal Tract, Via Natural or Artificial Opening Endoscopic (ICD-10-PCS; CPT 45378; principal; 2022-10-20 09:30)
DX: Z12.11 Encounter for screening for malignant neoplasm of colon (principal); Z86.010 Personal history of colon polyps; D12.2 Benign neoplasm of ascending colon; D12.3 Benign neoplasm of transverse colon; D12.4 Benign neoplasm of descending colon; D17.5 Benign lipomatous neoplasm of intra-abdominal organs; K63.5 Polyp of colon; K62.1 Rectal polyp; K57.30 Diverticulosis of large intestine without perforation or abscess without bleeding; K64.8 Other hemorrhoids; K21.9 Gastro-esophageal reflux disease without esophagitis; F10.10 Alcohol abuse, uncomplicated; I12.9 Hypertensive chronic kidney disease with stage 1 through stage 4 chronic kidney disease, or unspecified chronic kidney disease; N18.30 Chronic kidney disease, stage 3 unspecified; E78.00 Pure hypercholesterolemia, unspecified; J45.909 Unspecified asthma, uncomplicated; Z87.891 Personal history of nicotine dependence; E55.9 Vitamin D deficiency, unspecified; Z79.899 Other long term (current) drug therapy; Z91.040 Latex allergy status; Z90.49 Acquired absence of other specified parts of digestive tract
CPT/HCPCS: 45385; 45380; 88305

== ENCOUNTER 2022-12-14 12:39 | Outpatient (REF) | payer OTHER, SELFPAY ==
--- NOTE | ~2022-12-14 | MM_ITS ---
EXAMINATION: MM SCREENING DIGITAL BREAST TOMOSYNTHESIS, BILATERAL CLINICAL INFORMATION: Screening. Asymptomatic. The lifetime risk of breast cancer based on the Tyrer-Cuzick Model is 17.7%. COMPARISON: Mammography: December 08, 2021 and studies dating back to September 22, 2013 TECHNIQUE: Digital breast tomosynthesis is performed in both the craniocaudal and mediolateral oblique views along with computer-aided detection (CAD). Synthesized 2D images are generated from the tomosynthesis. Additional cleavage view performed. FINDINGS: There are scattered areas of fibroglandular density (ACR BI-RADS breast composition Category b). There are no new significant masses, abnormal calcifications, or other abnormalities. A few scattered and grouped calcifications are noted bilaterally right greater than left. Multiple stable circumscribed densities are present. MM/MM tomosynthesis screening BI IMPRESSION: No significant changes from prior exam. ASSESSMENT: BI-RADS 2: Benign RECOMMENDATION: Routine annual mammography screening. This patient's information was entered into a reminder system with a target due date for their next mammogram.
== END 2022-12-14 12:40 | disposition home or self-care (01) ==
LOC: HO.MAMMO 12:39
PROVIDERS: PCP Internal Medicine; Visit Provider Internal Medicine
DX: Z12.31 Encounter for screening mammogram for malignant neoplasm of breast (principal)
CPT/HCPCS: 77063; 77067

== ENCOUNTER 2022-12-14 13:31 | Outpatient (REF) | payer OTHER, SELFPAY ==
[2022-12-14 13:43] LABS: MANUAL DIFF FLAG NO
[2022-12-14 13:57] LABS: Basophils Percent Auto 0.4 % (0-2); Eosinophils Absolute Auto 0.3 X10*3/uL (0.0-0.4); Eosinophils Percent Auto 5.7 % (0-4); Hematocrit 36.5 % (37.0-47.0); Hemoglobin 12.2 g/dl (12.0-16.0); Imm Gran Abs Auto 0.02 X10*3/uL (0.00-0.03); Imm Gran Pct Auto 0.4 % (0.0-0.4); Lymphocytes Absolute Auto 1.8 X10*3/uL (1.2-4.9); Lymphocytes Percent Auto 35.6 % (20-40); Mean Corpuscular HGB Conc 33.4 g/dl (31.0-35.0); Mean Corpuscular Hemoglobin 30.2 pg (27.0-33.0); Mean Corpuscular Volume 90.3 fL (80.0-98.0); Mean Platelet Volume 9.4 fL (9.4-12.3); Monocytes Absolute Auto 0.6 X10*3/uL (0.1-1.2); Monocytes Percent Auto 11.4 % (2-11); Neutrophils Absolute Auto 2.4 x10*3/uL (2.0-8.3); Neutrophils Percent Auto 46.5 % (45-73); Platelet Count 229 X10*3/uL (160-400); Red Blood Count 4.04 X10*6/uL (4.20-5.50); White Blood Count 5.1 X10*3/uL (4.8-10.8)
[2022-12-14 14:32] LABS: Alanine Aminotransferase 33 U/L (0-31); Albumin Level 4.1 g/dL (3.5-5.0); Alkaline Phosphatase 109 U/L (39-117); Anion Gap 14 (12-20); Aspartate Amino Transferase 26 U/L (5-31); Bilirubin Total 0.4 mg/dL (0.0-1.0); Blood Urea Nitrogen 27 mg/dL (9-16); Calcium 9.2 mg/dL (8.4-10.2); Carbon Dioxide 24 mmol/L (22-29); Chloride 104 mmol/L (96-108); Cholesterol 196 mg/dL; Estimated Glomerular Filt Rate 29; Glucose Random 108 mg/dL (60-115); HDL Cholesterol 44 mg/dL; LDL Cholesterol Calculated 124 mg/dl; Potassium 4.4 mmol/L (3.3-5.1); Sodium 138 mmol/L (135-145); Total Protein 7.1 g/dL (6.5-8.0); Triglycerides 142 mg/dL
[2022-12-14 15:09] LABS: Folate 8.2 ng/mL (> or = 4.0); Thyroid Stimulating Hormone 2.02 uIU/mL (0.32-4.0); Vitamin B12 > 2000 pg/mL (200-900); Vitamin D 25-OH Total 63.3 ng/mL (>30)
== END 2022-12-14 13:32 | disposition home or self-care (01) ==
LOC: HO.LAB 13:31
PROVIDERS: PCP Internal Medicine; Visit Provider Internal Medicine
DX: I10 Essential (primary) hypertension (principal); K21.9 Gastro-esophageal reflux disease without esophagitis; E78.00 Pure hypercholesterolemia, unspecified; N18.31 Chronic kidney disease, stage 3a
CPT/HCPCS: 36415; 80053; 80061; 82306; 82607; 82746; 84439; 84443; 85025

== ENCOUNTER 2023-03-23 13:39 | Outpatient (AMB) | payer OTHER, SELFPAY ==
[2023-03-23 13:58] VITALS: BP 138/72; PULSE 77; O2SAT 98; BMI 40.1
--- NOTE | 2023-03-23 13:58 | A.OFFPC_ITS ---
Vital Signs 03/23/23 13:58 Height 5 ft 8 in Weight 264 lb BMI 40.1 BP 138/72 Blood Pressure Location Lt brachial Position Sitting Pulse 77 Pulse Source Pulse Oximeter Pulse Oximetry (%) 98 Oxygen Delivery Method Room Air Intake Visit Reasons: 3 month f/u, Left ear discomfort Allergies surgical tape Allergy (Severe, Uncoded 03/23/23 13:58) severe rash Medication List - Last Reconciled 03/23/23 by Tio Conway MD biotin 1 mg PO DAILY cholecalciferol (vitamin D3) 50 mcg PO DAILY cyanocobalamin (vitamin B-12) 1,000 mcg PO DAILY 90 days famotidine 20 mg PO BID hydrochlorothiazide 12.5 mg PO QAM lisinopril 10 mg PO DAILY mupirocin 2% 1 appl topical BID 7 days peg-electrolyte soln 420 gram 240 mL PO ONCE 1 day terbinafine HCl 250 mg PO DAILY 12 weeks thiamine HCl (vitamin B1) 50 mg PO DAILY 90 days zinc 100 mg PO DAILY Tobacco use date assessed: 12/10/22 Dental Screening Dental Screen Date: 03/23/23 Did you have a dental visit in the last 12 months?: Yes Did you have a dental problem in the last 6 months where you did not have access to dental care?: No Was dental information given to patient?: Patient has dentist HPI 3 month f/u HPI Details 53-year-old obese female smoker with hypercholesterolemia chronic kidney disease GERD hypertension peripheral vascular disease last seen in November 2022 for physical exam. Blood work was requested and is here for follow-up last blood work was in November. drinks alcohol, yesterday 4-5 drink- trying to decrease PFSH Medical History (Updated 03/23/23 @ 14:30 by Tio Conway MD) Alcohol abuse Asthma Breast density Cervical cancer screening Chronic kidney disease, stage III (moderate) GERD (gastroesophageal reflux disease) Hematoma Hypercholesterolemia Hypertension Laceration of right breast Obesity Obesity (BMI 30-39.9) Tobacco abuse Tubular adenoma of colon Tubulovillous adenoma Vaginal candidiasis Vision loss, bilateral Vitamin D deficiency Surgical History H/O colonoscopy History of cholecystectomy History of tracheostomy History of ventriculoperitoneal shunting Family History (Updated 12/10/22 @ 16:10 by Irena M Maitin, [employer]) Father HTN (hypertension) CVD (cardiovascular disease) Myocardial infarct Substance abuse Mother Skin cancer Cancer Maternal Grandmother Breast cancer Brother No problems noted. Sister No problems noted. Other Mental health disorder Social History (Updated 12/10/22 @ 16:39 by Tio Conway MD) Household Members: None Housing: Apartment Are you a primary managed care coordinator to a significant other at home: No Do you presently have visiting nurse or other home services: No Alcohol intake: current Alcohol intake frequency: a few times a week Alcohol type: beer Patient Tobacco Use Status: Former Tobacco user Quit Date: 05/2022 Tobacco use type: Cigarette Cigarette Packs Per Day: 1 Cigarettes Per Day: 20.0 Years Smoked: 23 e-Cigarette/Vaping Use: Never Used Second Hand Smoke Exposure: No service: No Current occupational status: disabled Cognitive needs: No Hearing needs: No Vision needs: Yes Questionnaire PHQ-9 Over the last 2 weeks, how often have you been bothered by any of the following problems? 1. Little interest or pleasure in doing things: not at all 2. Feeling down, depressed, or hopeless: not at all 3. Trouble falling or staying asleep, or sleeping too much: not at all 4. Feeling tired or having little energy: not at all 5. Poor appetite or overeating: not at all 6. Feeling bad about yourself - or that you are a failure or have let yourself or your family down: not at all 7. Trouble concentrating on things, such as reading the newspaper or watching television: not at all 8. Moving or speaking so slowly that other people could have noticed. Or the opposite - being so fidgety or restless that you have been moving around a lot more than usual: not at all 9. Thoughts that you would be better off or of hurting yourself in some way: not at all Total score: 0 Depression Screening Interpretation: Negative Source: Developed by Drs. Jose Coronel, Genia Hanson, Rudy Tucker and colleagues, with an educational radha from [employer]. Thrive Questionnaire Date Thrive assessed: 12/10/22 AUDIT C Alcohol Use Questionnaire (AUDIT-C) 1. How often do you have a drink containing alcohol?: 4 or more times a week 2. How many drinks containing alcohol do you have on a typical day when you are drinking?: 5 or 6 3. How often do you have six or more drinks on one occasion?: Weekly Total Score: 9 DYLON-7 AMB Questionnaire DLYON-7 Date DYLON - 7 assessed: 12/10/22 Source: Developed by Drs. Jose Coronel, Genia Hanson, Rudy Tucker and colleagues, with an educational radha from [employer]. Physical exam (Primary Care) Vital Signs: Last Vital Signs Pulse 77 03/23/23 13:58 BP 138/72 03/23/23 13:58 Pulse Ox 98 03/23/23 13:58 Oxygen Delivery Method Room Air 03/23/23 13:58 BMI result Body Mass Index 40.1 Tobacco/Smoking Status: Tobacco use Status Tobacco use date assessed 12/10/22 03/23/23 14:02 Patient Tobacco Use Status Former Tobacco user 03/23/23 14:02 Tobacco use type Cigarette 03/23/23 14:02 e-Cigarette/Vaping Use Never Used 03/23/23 14:02 PHQ-9: PHQ-9 Score PHQ-9: Total score 0 03/23/23 14:03 Depression Screening Interpretation: Negative Thrive Assessment: Date of Thrive Assessment Date Thrive assessed 12/10/22 03/23/23 14:02 Const General: alert; No acute distress Eyes Conjunctivae: conjunctivae normal Resp Auscultation: clear to auscultation bilaterally Cardio Rate: regular rate Rhythm: regular rhythm GI Inspection: Yes normal to inspection Extrem General: Yes normal to inspection and No edema Assessment and Plan Assessment & Plan (1) Alcohol abuse: Code(s): F10.10 - Alcohol abuse, uncomplicated Plan: advised to stop!! (2) Hypercholesterolemia: Code(s): E78.00 - Pure hypercholesterolemia, unspecified Plan: Avoid fried foods, chicken skin, eggs, butter margarine, pastries and meat. Be it pork or beef they have a lot of cholesterol LDL goal of less than 130 and triglyceride of less than 150 (3) Chronic kidney disease, stage III (moderate): Code(s): N18.30 - Chronic kidney disease, stage 3 unspecified Qualifiers: Chronic kidney disease stage 3 subtype: stage 3a (GFR 45-59) Qualified Code(s): N18.31 - Chronic kidney disease, stage 3a Plan: Keep well hydrated, avoid NSAIDs (4) Obesity (BMI 30-39.9): Code(s): E66.9 - Obesity, unspecified Plan: Diet and exercise (5) GERD (gastroesophageal reflux disease): Code(s): K21.9 - Gastro-esophageal reflux disease without esophagitis Qualifiers: Esophagitis presence: without esophagitis Qualified Code(s): K21.9 - Gastro-esophageal reflux disease without esophagitis Plan: Avoid the foods that causes that usually spicy foods, tomato products, juices, coffee, soda and foods that your sensitive to. After eating do not lie down, allow 3-4 hours before in lie down. And keep the head of bed above 30 degrees to avoid the acid from going up. (6) Hypertension: Code(s): I10 - Essential (primary) hypertension Qualifiers: Hypertension type: essential hypertension Qualified Code(s): I10 - Essential (primary) hypertension Plan: Continue with blood pressure medication. Decrease salt intake and exercise patient is taking hydrochlorothiazide 12.5 mg once a day and lisinopril 10 mg once a day (7) Onychomycosis: Code(s): B35.1 - Tinea unguium (8) Rosacea: Code(s): L71.9 - Rosacea, unspecified (9) Obesity: Code(s): E66.9 - Obesity, unspecified Medications: New semaglutide for 4 weeks 0.25 mg (0.4 mL) subcut QWEEK 3 mL 0RF E66.9 - Obesity, unspecified Refilled terbinafine HCl 250 mg PO DAILY 12 weeks 84 tabs 0RF B35.1 - Tinea unguium metronidazole 0.75% (MetroCream) 1 appl topical BEDTIME 45 grams 3RF L71.9 - Rosacea, unspecified Coding Level of Care Code Est Pt Level 4 (77200) Diagnoses Alcohol abuse F10.10 Hypercholesterolemia E78.00 Chronic kidney disease, stage III (moderate) N18.31 Chronic kidney disease stage 3 subtype: stage 3a (GFR 45-59) Obesity (BMI 30-39.9) E66.9 GERD (gastroesophageal reflux disease) K21.9 Esophagitis presence: without esophagitis Hypertension I10 Hypertension type: essential hypertension Onychomycosis B35.1 Rosacea L71.9 Obesity E66.9
== END 2023-03-23 14:42 | disposition home or self-care (01) ==
PROVIDERS: PCP Internal Medicine; Visit Provider Internal Medicine
DX: I12.9 Hypertensive chronic kidney disease with stage 1 through stage 4 chronic kidney disease, or unspecified chronic kidney disease (principal); N18.31 Chronic kidney disease, stage 3a; E66.01 Morbid (severe) obesity due to excess calories; Z68.41 Body mass index [BMI] 40.0-44.9, adult; K21.9 Gastro-esophageal reflux disease without esophagitis; F10.10 Alcohol abuse, uncomplicated; B35.1 Tinea unguium; E78.00 Pure hypercholesterolemia, unspecified; L71.9 Rosacea, unspecified
CPT/HCPCS: 99214

== ENCOUNTER 2023-05-13 13:03 | Outpatient (REF) | payer OTHER, SELFPAY ==
[2023-05-13 13:30] LABS: MANUAL DIFF FLAG NO
[2023-05-13 14:10] LABS: Basophils Percent Auto 0.4 % (0-2); Eosinophils Absolute Auto 0.3 X10*3/uL (0.0-0.4); Eosinophils Percent Auto 4.8 % (0-4); Hematocrit 37.7 % (37.0-47.0); Hemoglobin 12.6 g/dl (12.0-16.0); Imm Gran Abs Auto 0.03 X10*3/uL (0.00-0.03); Imm Gran Pct Auto 0.6 % (0.0-0.4); Lymphocytes Absolute Auto 1.7 X10*3/uL (1.2-4.9); Lymphocytes Percent Auto 30.5 % (20-40); Mean Corpuscular HGB Conc 33.4 g/dl (31.0-35.0); Mean Corpuscular Hemoglobin 31.3 pg (27.0-33.0); Mean Corpuscular Volume 93.5 fL (80.0-98.0); Mean Platelet Volume 9.5 fL (9.4-12.3); Monocytes Absolute Auto 0.4 X10*3/uL (0.1-1.2); Monocytes Percent Auto 7.4 % (2-11); Neutrophils Absolute Auto 3.1 x10*3/uL (2.0-8.3); Neutrophils Percent Auto 56.3 % (45-73); Platelet Count 220 X10*3/uL (160-400); Red Blood Count 4.03 X10*6/uL (4.20-5.50); Red Cell Distribution Width 13.1 % (11.0-16.0); White Blood Count 5.4 X10*3/uL (4.8-10.8)
[2023-05-13 15:11] LABS: Anion Gap 12 (12-20); Blood Urea Nitrogen 24 mg/dL (9-16); Calcium 10.2 mg/dL (8.4-10.2); Carbon Dioxide 26 mmol/L (22-29); Chloride 103 mmol/L (96-108); Estimated Glomerular Filt Rate 38; Potassium 4.4 mmol/L (3.3-5.1); Sodium 137 mmol/L (135-145)
[2023-05-13 17:57] LABS: Creatinine Urine 42.61 mg/dL; Microalbum/Creatinine Ratio Ur 18.7 ug/mg cr (<30); Total Protein Urine Random < 7 mg/dL (<12)
== END 2023-05-13 13:04 | disposition home or self-care (01) ==
LOC: HO.LAB 13:03
PROVIDERS: PCP Internal Medicine; Visit Provider Internal Medicine Hypertension Specialist
DX: I12.0 Hypertensive chronic kidney disease with stage 5 chronic kidney disease or end stage renal disease (principal); N18.6 End stage renal disease
CPT/HCPCS: 36415; 80051; 82043; 82310; 82565; 82570; 84156; 84520; 85025

== ENCOUNTER 2023-07-06 13:14 | Outpatient (AMB) | payer OTHER, SELFPAY ==
[2023-07-06 13:20] VITALS: BP 136/78; PULSE 83; O2SAT 96; BMI 40.9
--- NOTE | 2023-07-06 13:20 | MHC.PC.OV ---
Vital Signs 07/06/23 13:20 Height 5 ft 8 in Weight 122.016 kg BMI 40.9 BP 136/78 Blood Pressure Location Lt brachial Position Sitting Pulse 83 Pulse Source Pulse Oximeter Pulse Oximetry (%) 96 Oxygen Delivery Method Room Air Intake Visit Reasons: 3 mon f/u Allergies surgical tape Allergy (Severe, Uncoded 07/06/23 13:21) severe rash Medication List - Last Reconciled 07/06/23 by Tio Conway MD biotin 1 mg PO DAILY cholecalciferol (vitamin D3) 50 mcg PO DAILY cyanocobalamin (vitamin B-12) 1,000 mcg PO DAILY 90 days doxycycline hyclate 100 mg PO BID famotidine 20 mg PO BID hydrochlorothiazide 12.5 mg PO QAM lisinopril 10 mg PO DAILY metronidazole 0.75% (MetroCream) 1 appl topical BEDTIME mupirocin 2% 1 appl topical BID 7 days ixfqvzza-xftwxyhux-RA 3.5-10,000-1 mg/mL-unit/mL-% 4 drps otic (ear) left Q8H 10 days peg-electrolyte soln 420 gram 240 mL PO ONCE 1 day semaglutide 0.5 mg (0.736 mL) subcut QWEEK 30 days terbinafine HCl 250 mg PO DAILY 12 weeks thiamine HCl (vitamin B1) 50 mg PO DAILY 90 days zinc 100 mg PO DAILY Tobacco use date assessed: 12/10/22 Dental Screening Dental Screen Date: 07/06/23 Did you have a dental visit in the last 12 months?: Yes Did you have a dental problem in the last 6 months where you did not have access to dental care?: No Was dental information given to patient?: Patient has dentist HPI 3 mon f/u HPI Details 53-year-old obese female with a history of hypertension GERD chronic kidney disease hypercholesterolemia and history of alcohol abuse coming in for follow-up. Last seen in February 2023. Up-to-date with mammogram colonoscopy. L ear crackles this has been occuring for months already also L arm pit has a red mass and this just happened 3 days ago. Discussed that this is most likely hydradenitis suppurative will try the antibiotic 1st if not getting any better will sent to the surgeon. [facility] Medical History (Updated 07/06/23 @ 14:07 by Tio Conway MD) Breast cancer screening by mammogram Vision loss, bilateral Laceration of right breast Obesity Tubulovillous adenoma Hematoma Vaginal candidiasis Cervical cancer screening Breast density Tubular adenoma of colon Tobacco abuse Asthma Hypercholesterolemia Chronic kidney disease, stage III (moderate) Alcohol abuse Obesity (BMI 30-39.9) GERD (gastroesophageal reflux disease) Hypertension Vitamin D deficiency Surgical History H/O colonoscopy History of tracheostomy History of ventriculoperitoneal shunting History of cholecystectomy Family History (Updated 12/10/22 @ 16:10 by Irena Brandon CMA) Father HTN (hypertension) CVD (cardiovascular disease) Myocardial infarct Substance abuse Mother Skin cancer Cancer Maternal Grandmother Breast cancer Brother No problems noted. Sister No problems noted. Other Mental health disorder Social History (Updated 12/10/22 @ 16:39 by Tio Conway MD) Household Members: None Housing: Apartment Are you a primary primary care nurse practitioner to a significant other at home: No Do you presently have visiting nurse or other home services: No Alcohol intake: current Alcohol intake frequency: a few times a week Alcohol type: beer Patient Tobacco Use Status: Former Tobacco user Quit Date: 05/2022 Tobacco use type: Cigarette Cigarette Packs Per Day: 1 Cigarettes Per Day: 20.0 Years Smoked: 23 e-Cigarette/Vaping Use: Never Used Second Hand Smoke Exposure: No service: No Current occupational status: disabled Cognitive needs: No Hearing needs: No Vision needs: Yes Questionnaire PHQ-9 Over the last 2 weeks, how often have you been bothered by any of the following problems? 1. Little interest or pleasure in doing things: not at all 2. Feeling down, depressed, or hopeless: not at all 3. Trouble falling or staying asleep, or sleeping too much: not at all 4. Feeling tired or having little energy: not at all 5. Poor appetite or overeating: not at all 6. Feeling bad about yourself - or that you are a failure or have let yourself or your family down: not at all 7. Trouble concentrating on things, such as reading the newspaper or watching television: not at all 8. Moving or speaking so slowly that other people could have noticed. Or the opposite - being so fidgety or restless that you have been moving around a lot more than usual: not at all 9. Thoughts that you would be better off or of hurting yourself in some way: not at all Total score: 0 Depression Screening Interpretation: Negative Depression Screening Done: Yes Source: Developed by Drs. Jose Coronel, Rudy Moran and colleagues, with an educational radha from [employer]. Thrive Questionnaire Date Thrive assessed: 12/10/22 AUDIT C Alcohol Use Questionnaire (AUDIT-C) 1. How often do you have a drink containing alcohol?: 4 or more times a week 2. How many drinks containing alcohol do you have on a typical day when you are drinking?: 5 or 6 3. How often do you have six or more drinks on one occasion?: Weekly Total Score: 9 DYLON-7 AMB Questionnaire DYLON-7 Date DYLON - 7 assessed: 12/10/22 Source: Developed by Drs. Jose Coronel, Genia Hanson, Rudy Tucker and colleagues, with an educational radha from [employer]. Physical exam (Primary Care) Vital Signs: Last Vital Signs Pulse 83 07/06/23 13:20 BP 136/78 07/06/23 13:20 Pulse Ox 96 07/06/23 13:20 Oxygen Delivery Method Room Air 07/06/23 13:20 BMI result Body Mass Index 40.9 Tobacco/Smoking Status: Tobacco use Status Tobacco use date assessed 12/10/22 07/06/23 13:21 Patient Tobacco Use Status Former Tobacco user 07/06/23 13:21 Tobacco use type Cigarette 07/06/23 13:21 e-Cigarette/Vaping Use Never Used 07/06/23 13:21 PHQ-9: PHQ-9 Score PHQ-9: Total score 0 07/06/23 13:54 Depression Screening Interpretation: Negative Thrive Assessment: Date of Thrive Assessment Date Thrive assessed 12/10/22 07/06/23 13:21 Const General: alert; No acute distress Eyes Conjunctivae: conjunctivae normal Resp Auscultation: clear to auscultation bilaterally Cardio Rate: regular rate Rhythm: regular rhythm GI Inspection: Yes normal to inspection Extrem Other: Noted thickened nails with scaliness bilateral, left axilla has 2 cm erythematous rounded mass with some whitish discharge, noted also on the lower abdominal fold to have some 1 cm red rash General: Yes normal to inspection and No edema Office Procedures Flu Questionnaire Does the patient have a severe egg allergy?: No Does the patient have severe life threatening allergies?: No Does the patient have a fever or illness today?: No Has the patient ever had Guillain-[place] Syndrome?: No Has the patient ever had any past reaction to a flu shot?: No Immunizations flu vacc [id number] 6mos up(PF) 60 mcg(15 mcgx4)/0.5 mL IM syringe Performing Provider: Tio Conway MD [facility] Administered by: Irena Brandon CMA on 07/06/23 14:12 Dose Route Admin Location Dispensed Lot Number Expiration Date NDC [employer] 0.5 mL IM Left Deltoid 0.5 mL [id number] 02/27/24 [id number] [employer] VIS Given Date VIS Provided VIS Publication Date 07/06/23 Single Vaccine 21 Eligibility Eligibility Date Funding Source Not [facility] Eligible 07/06/23 Private Assessment and Plan Assessment & Plan (1) Obesity (BMI 30-39.9): Code(s): E66.9 - Obesity, unspecified Plan: Diet and exercise. Semaglutide prescription increased in dose prescribed (2) Hypertension: Code(s): I10 - Essential (primary) hypertension Qualifiers: Hypertension type: essential hypertension Qualified Code(s): I10 - Essential (primary) hypertension Plan: Continue with blood pressure medication. Decrease salt intake and exercise patient on lisinopril 10 mg hydrochlorothiazide 12.5 mg (3) GERD (gastroesophageal reflux disease): Code(s): K21.9 - Gastro-esophageal reflux disease without esophagitis Qualifiers: Esophagitis presence: without esophagitis Qualified Code(s): K21.9 - Gastro-esophageal reflux disease without esophagitis Plan: Avoid the foods that causes that usually spicy foods, tomato products, juices, coffee, soda and foods that your sensitive to. After eating do not lie down, allow 3-4 hours before in lie down. And keep the head of bed above 30 degrees to avoid the acid from going up. (4) Chronic kidney disease, stage III (moderate): Code(s): N18.30 - Chronic kidney disease, stage 3 unspecified Qualifiers: Chronic kidney disease stage 3 subtype: stage 3a (GFR 45-59) Qualified Code(s): N18.31 - Chronic kidney disease, stage 3a Plan: Keep well hydrated avoid NSAIDs (5) Hypercholesterolemia: Code(s): E78.00 - Pure hypercholesterolemia, unspecified Plan: Avoid fried foods, chicken skin, eggs, butter margarine, pastries and meat. Be it pork or beef they have a lot of cholesterol LDL goal of less than 30 and triglyceride of less than 150 (6) Asthma: Comment: no inhaler Code(s): J45.909 - Unspecified asthma, uncomplicated Qualifiers: Asthma complication type: uncomplicated Asthma persistence: intermittent Asthma severity: mild Qualified Code(s): J45.20 - Mild intermittent asthma, uncomplicated Plan: Patient not requiring any inhaler (7) Otitis externa: Code(s): H60.90 - Unspecified otitis externa, unspecified ear Plan: Ear drops sent in (8) Hidradenitis axillaris: Code(s): L73.2 - Hidradenitis suppurativa Plan: Doxycycline antibiotics sent in (9) Onychomycosis: Code(s): B35.1 - Tinea unguium Plan: Anti fungal terbinafine prescription sent Orders: Orders Influenza [id number] Immunization Today Z23 - Encounter for immunization Medications: New doxycycline hyclate 100 mg PO BID 14 caps 0RF L73.2 - Hidradenitis suppurativa yxcryxfm-aswuvhipx-OB 3.5-10,000-1 mg/mL-unit/mL-% 4 drps otic (ear) left Q8H 10 mL 0RF 10 days H60.90 - Unspecified otitis externa, unspecified ear Changed From semaglutide for 4 weeks 0.25 mg (0.368 mL) subcut QWEEK 3 mL 0RF E66.9 - Obesity, unspecified To semaglutide for 4 weeks 0.5 mg (0.736 mL) subcut QWEEK 3.68 mL 2RF 30 days E66.9 - Obesity, unspecified Refilled terbinafine HCl 250 mg PO DAILY 84 tabs 1RF 12 weeks B35.1 - Tinea unguium Coding Level of Care Code Est Pt Level 4 (69243) Diagnoses Obesity (BMI 30-39.9) E66.9 Essential hypertension I10 Hypertension type: essential hypertension Gastroesophageal reflux disease without esophagitis K21.9 Esophagitis presence: without esophagitis Stage 3a chronic kidney disease N18.31 Chronic kidney disease stage 3 subtype: stage 3a (GFR 45-59) Hypercholesterolemia E78.00 Mild intermittent asthma without complication J45.20 Asthma complication type: uncomplicated Asthma persistence: intermittent Asthma severity: mild Otitis externa H60.90 Hidradenitis axillaris L73.2 Onychomycosis B35.1
== END 2023-07-06 14:20 | disposition home or self-care (01) ==
PROVIDERS: PCP Internal Medicine; Visit Provider Internal Medicine
DX: E66.9 Obesity, unspecified (principal); Z68.41 Body mass index [BMI] 40.0-44.9, adult; I12.9 Hypertensive chronic kidney disease with stage 1 through stage 4 chronic kidney disease, or unspecified chronic kidney disease; N18.31 Chronic kidney disease, stage 3a; K21.9 Gastro-esophageal reflux disease without esophagitis; E78.00 Pure hypercholesterolemia, unspecified; J45.20 Mild intermittent asthma, uncomplicated; H60.92 Unspecified otitis externa, left ear; L73.2 Hidradenitis suppurativa; B35.1 Tinea unguium; Z23 Encounter for immunization
CPT/HCPCS: 90471; 90686; 99214

== ENCOUNTER 2023-09-21 13:36 | Outpatient (AMB) | payer OTHER, SELFPAY ==
--- NOTE | 2023-09-21 13:49 | HO.NEPHOV_ITS ---
HPI HPI Comments History of Present Illness Details 53-year-old woman with a history of hype rtension mild CKD history of smoking and GERD. She is here for follow-up. She was last seen few years ago. [facility] Medical History (Updated 07/06/23 @ 14:07 by Tio Conway MD) Breast cancer screening by mammogram Vision loss, bilateral Laceration of right breast Obesity Tubulovillous adenoma Hematoma Vaginal candidiasis Cervical cancer screening Breast density Tubular adenoma of colon Tobacco abuse Asthma Hypercholesterolemia Chronic kidney disease, stage III (moderate) Alcohol abuse Obesity (BMI 30-39.9) GERD (gastroesophageal reflux disease) Hypertension Vitamin D deficiency Surgical History H/O colonoscopy History of tracheostomy History of ventriculoperitoneal shunting History of cholecystectomy Family History Father HTN (hypertension) CVD (cardiovascular disease) Myocardial infarct Substance abuse Mother Skin cancer Cancer Maternal Grandmother Breast cancer Brother No problems noted. Sister No problems noted. Other Mental health disorder Social History Household Members: None Housing: Apartment Are you a primary vision care associate to a significant other at home: No Do you presently have visiting nurse or other home services: No Alcohol intake: current Alcohol intake frequency: a few times a week Alcohol type: beer Patient Tobacco Use Status: Former Tobacco user Quit Date: 05/2022 Tobacco use type: Cigarette Cigarette Packs Per Day: 1 Cigarettes Per Day: 20.0 Years Smoked: 23 e-Cigarette/Vaping Use: Never Used Second Hand Smoke Exposure: No service: No Current occupational status: disabled Cognitive needs: No Hearing needs: No Vision needs: Yes Vital Signs 09/21/23 13:52 Height 5 ft 8 in BP 110/78 Blood Pressure Location Rt brachial Position Sitting Pulse 74 Pulse Source Pulse Oximeter Pulse Oximetry (%) 98 Oxygen Delivery Method Room Air Physical Exam Vital Signs: Last Vital Signs Pulse 74 09/21/23 13:52 BP 110/78 09/21/23 13:52 Pulse Ox 98 09/21/23 13:52 Oxygen Delivery Method Room Air 09/21/23 13:52 Const General: comfortable Nutritional Appearance: well nourished Orientation/consciousness: patient oriented x3 HEENT Head: No normal to inspection Mouth: moist mucous membranes Neck Neck: Yes supple and Yes no JVD Resp Auscultation: clear to auscultation bilaterally, no rales and rub present Cardio Jugular venous distension: no JVD Palpation: no palpable S3 and no palpable S4 Heart sounds: no rubs GI Palpation (GI): Soft to palpation and nontender Percussion: No Fluid wave present General: Yes no CVA tenderness Back/Spine/Pelvis Back: no CVA tenderness Skin General skin exam: no rashes or lesions noted Neuro General: patient oriented x3 Extrem General: Yes no pedal edema and No clubbing Assessment & Plan Assessment & Plan (1) Chronic kidney disease, stage III (moderate): Code(s): N18.30 - Chronic kidney disease, stage 3 unspecified Qualifiers: Chronic kidney disease stage 3 subtype: stage 3a (GFR 45-59) Qualified Code(s): N18.31 - Chronic kidney disease, stage 3a Plan Middle-aged man with hypertension and CKD. Serum creatinine has been staying around 1.5 mg/dL. Probably this is her baseline. Elif probably has hypertensive nephrosclerosis. No evidence of obstruction. No reason to believe that she is any active glomerulonephritis or interstitial disease at this time. Goal is to slow the portion disease Continue maintain blood pressure less than 130/80 Avoid nephrotoxic agents. We discussed smoking cessation. Baseline workup as ordered. Orders: Orders Basic Metabolic Panel 09/21/23 N18.30 - Chronic kidney disease, stage 3 unspecified US renal BI 09/21/23 N18.30 - Chronic kidney disease, stage 3 unspecified Total Protein Urine Random 09/21/23 N18.30 - Chronic kidney disease, stage 3 unspecified Creatinine Urine 09/21/23 N18.30 - Chronic kidney disease, stage 3 unspecified UA and rflx microscopic 09/21/23 N18.30 - Chronic kidney disease, stage 3 unspecified Coding Level of Care Code Est Pt Level 4 (26550) Diagnoses Stage 3a chronic kidney disease N18.31 Chronic kidney disease stage 3 subtype: stage 3a (GFR 45-59) Results Reviewed Nephrology Results: Hgb 12.6 g/dl (12.0-16.0) 05/13/23 WBC 5.4 X10*3/uL (4.8-10.8) 05/13/23 Plt Count 220 X10*3/uL (160-400) 05/13/23 Sodium 137 mmol/L (135-145) 10/19/23 Potassium 3.9 mmol/L (3.3-5.1) 10/19/23 Chloride 102 mmol/L (96-108) 10/19/23 Carbon Dioxide 26 mmol/L (22-29) 10/19/23 BUN 24 mg/dL (9-16) H 10/19/23 Creatinine 1.55 mg/dL (0.5-1.4) H 10/19/23 Calcium 9.3 mg/dL (8.4-10.2) 10/19/23 Urine Protein Negative mg/dL (Neg-Trace) 10/19/23 Urine Creatinine 150.75 mg/dL 10/19/23 Protein/Creatinin Ratio TNP 05/13/23 Renal US 10/08/23
[2023-09-21 13:52] VITALS: BP 110/78; PULSE 74; O2SAT 98
== END 2023-09-21 14:33 | disposition home or self-care (01) ==
PROVIDERS: PCP Internal Medicine; Visit Provider Internal Medicine Hypertension Specialist
DX: N18.31 Chronic kidney disease, stage 3a (principal)
CPT/HCPCS: 99214

== ENCOUNTER → 2023-09-21 13:36 | Outpatient (BNVA) | payer OTHER, SELFPAY | PROVIDERS: PCP Internal Medicine; Visit Provider Internal Medicine Hypertension Specialist | DX: I12.9 Hypertensive chronic kidney disease with stage 1 through stage 4 chronic kidney disease, or unspecified chronic kidney disease (principal); N18.31 Chronic kidney disease, stage 3a | CPT/HCPCS: 99212 ==

== ENCOUNTER 2023-10-08 12:17 | Outpatient (REF) | payer MEDICARE, MEDICAID, SELFPAY ==
--- NOTE | ~2023-10-08 | US_ITS ---
EXAMINATION: US RETROPERITONEAL LIMITED (RENAL ONLY) CLINICAL INFORMATION: Chronic kidney disease, stage 3 unspecified. COMPARISON: Renal ultrasound 09/13/2018. TECHNIQUE: Real-time imaging of the kidneys. FINDINGS: RIGHT KIDNEY: 10.5 x 4.9 x 5.7 cm (SAG x AP x TRV). The kidney is normal in size, contour, and echogenicity. Renal cortical thickness is normal. No calculi or focal parenchymal lesions. No hydronephrosis. LEFT KIDNEY: 10.0 x 4.4 x 4.3 cm (SAG x AP x TRV). The kidney is normal in size, contour, and echogenicity. Renal cortical thickness is normal. No calculi or focal parenchymal lesions. No hydronephrosis. US/US renal BI IMPRESSION: Unremarkable renal ultrasound..
== END 2023-10-08 12:18 | disposition home or self-care (01) ==
LOC: HO.US 12:17
PROVIDERS: PCP Internal Medicine; Visit Provider Internal Medicine Hypertension Specialist
DX: N18.30 Chronic kidney disease, stage 3 unspecified (principal)
CPT/HCPCS: 76775

== ENCOUNTER 2023-10-19 11:41 | Outpatient (REF) | payer MEDICARE, MEDICAID, SELFPAY ==
[2023-10-19 12:44] LABS: Anion Gap 13 (12-20); Blood Urea Nitrogen 24 mg/dL (9-16); Calcium 9.3 mg/dL (8.4-10.2); Carbon Dioxide 26 mmol/L (22-29); Chloride 102 mmol/L (96-108); Estimated Glomerular Filt Rate 35; Glucose Random 99 mg/dL (60-115); Potassium 3.9 mmol/L (3.3-5.1); Sodium 137 mmol/L (135-145)
[2023-10-19 14:29] LABS: Appearance Urine Cloudy; Color Urine Yellow; Glucose Urine UA Negative (Negative); Leukocyte Esterase Urine Small (1+) (Negative); Nitrite Urine Negative (Negative); Specific Gravity - Urine 1.015 (1.005-1.025); UMIC TRIGGER UA YES; Urine Blood Negative (Negative); Urine Ketones Negative (Negative); Urine Protein Negative (Neg-Trace)
[2023-10-19 14:45] LABS: Bacteria Urine 2+ (None Seen); RBC Urine 0-2 /HPF (0-2); WBC Clumps Urine Present
[2023-10-19 14:57] LABS: Creatinine Urine 150.75 mg/dL; Total Protein Urine Random 8 mg/dL (<12)
== END 2023-10-19 11:42 | disposition home or self-care (01) ==
LOC: HO.LAB 11:41
PROVIDERS: PCP Internal Medicine; Visit Provider Internal Medicine Hypertension Specialist
DX: N18.30 Chronic kidney disease, stage 3 unspecified (principal)
CPT/HCPCS: 36415; 80048; 81001; 82570; 84156

== ENCOUNTER 2023-12-14 12:19 | Outpatient (AMB) | payer MEDICARE, MEDICAID, SELFPAY ==
[2023-12-14 12:24] VITALS: BP 134/78; PULSE 85; O2SAT 98; BMI 40.4
--- NOTE | 2023-12-14 12:24 | A.OFFPC_ITS ---
Vital Signs 12/14/23 12:24 Height 5 ft 8 in Weight 266 lb BMI 40.4 BP 134/78 Blood Pressure Location Lt brachial Position Sitting Pulse 85 Pulse Source Pulse Oximeter Pulse Oximetry (%) 98 Oxygen Delivery Method Room Air Intake Visit Reasons: Annual Exam Allergies surgical tape Allergy (Severe, Uncoded 12/14/23 12:25) severe rash Medication List - Last Reconciled 12/14/23 by Tio Conway MD biotin 1 mg PO DAILY cholecalciferol (vitamin D3) 1,250 mcg PO .Q month famotidine 20 mg PO BID PRN hydrochlorothiazide 12.5 mg PO QAM lisinopril 10 mg PO DAILY mupirocin 2% 1 appl topical BID 7 days peg-electrolyte soln 420 gram 240 mL PO ONCE 1 day thiamine HCl (vitamin B1) 50 mg PO DAILY 90 days zinc 100 mg PO DAILY Tobacco use date assessed: 12/14/23 Dental Screening Dental Screen Date: 12/14/23 Did you have a dental visit in the last 12 months?: Yes Did you have a dental problem in the last 6 months where you did not have access to dental care?: No Was dental information given to patient?: Patient has dentist HPI Annual Exam HPI Details 53-year-old morbidly obese female with hypertension GERD chronic kidney disease hypercholesterolemia asthma coming in for physical exam last seen in June 2023. Mammogram is due, colonoscopy up-to-date September 2022 3 years recently had an ultrasound done in September under Nephrology which was negative. Diagnosis of chronic kidney disease stage 3 hypertensive nephrosclerosis advised control blood pressure. [facility] Medical History (Updated 12/14/23 @ 13:25 by Tio Conway MD) Breast cancer screening by mammogram Vision loss, bilateral Laceration of right breast Obesity Tubulovillous adenoma Hematoma Vaginal candidiasis Cervical cancer screening Breast density Tubular adenoma of colon Tobacco abuse Asthma Hypercholesterolemia Chronic kidney disease, stage III (moderate) Alcohol abuse Obesity (BMI 30-39.9) GERD (gastroesophageal reflux disease) Hypertension Vitamin D deficiency Surgical History H/O colonoscopy History of tracheostomy History of ventriculoperitoneal shunting History of cholecystectomy Family History Father HTN (hypertension) CVD (cardiovascular disease) Myocardial infarct Substance abuse Mother Skin cancer Cancer Maternal Grandmother Breast cancer Brother No problems noted. Sister No problems noted. Other Mental health disorder Social History (Updated 12/14/23 @ 13:23 by Tio Conway MD) Household Members: None Housing: Apartment Are you a primary long term care pharmacist to a significant other at home: No Do you presently have visiting nurse or other home services: No Alcohol intake: current Alcohol intake frequency: a few times a week Alcohol type: beer Comment: 6 days a week 67 drinks Patient Tobacco Use Status: Former Tobacco user Quit Date: 05/2022 Tobacco use type: Cigarette Cigarette Packs Per Day: 1 Cigarettes Per Day: 20.0 Years Smoked: 23 Quit 2021 e-Cigarette/Vaping Use: Never Used Second Hand Smoke Exposure: No service: No Current occupational status: disabled Cognitive needs: No Hearing needs: No Vision needs: Yes Questionnaire PHQ-9 Over the last 2 weeks, how often have you been bothered by any of the following problems? 1. Little interest or pleasure in doing things: not at all 2. Feeling down, depressed, or hopeless: not at all 3. Trouble falling or staying asleep, or sleeping too much: not at all 4. Feeling tired or having little energy: not at all 5. Poor appetite or overeating: not at all 6. Feeling bad about yourself - or that you are a failure or have let yourself or your family down: not at all 7. Trouble concentrating on things, such as reading the newspaper or watching television: not at all 8. Moving or speaking so slowly that other people could have noticed. Or the opposite - being so fidgety or restless that you have been moving around a lot more than usual: not at all 9. Thoughts that you would be better off or of hurting yourself in some way: not at all Total score: 0 Depression Screening Interpretation: Negative Depression Screening Done: Yes Source: Developed by Drs. Jose Coronel, Genia Hanson, Rudy Tucker and colleagues, with an educational radha from [employer]. Thrive Questionnaire Date Thrive assessed: 12/14/23 I am a: Patient What is your living situation today?: I have a steady place to live Within the past 12 months, did the food you bought not last and you didn't have the money to get more?: Never true Within the past 12 months, did you worry whether your food would run out before you got money to buy more?: Never true Do you have trouble paying for medicines?: No Do you have trouble getting transportation to medical appointments?: No Do you have trouble paying your heating and electricity bill?: No Do you have trouble taking care of your child, family member or friend?: No Do you have trouble with day-to-day activities such as bathing, preparing meals, shopping, managing finances, etc.?: No Are you currently unemployed and looking for a job?: No Are you interested in more education?: No Currently or been in a relationship where the following occur: no concerns reported THRIVE Score: 0 AUDIT C Alcohol Use Questionnaire (AUDIT-C) 1. How often do you have a drink containing alcohol?: 4 or more times a week 2. How many drinks containing alcohol do you have on a typical day when you are drinking?: 5 or 6 3. How often do you have six or more drinks on one occasion?: Weekly Total Score: 9 DYLON-7 AMB Questionnaire DYLON-7 Date DYLON - 7 assessed: 12/14/23 Feeling nervous, anxious, or on edge: 0 = Not at all Not being able to stop or control worryin = Not at all Worrying too much about different things: 0 = Not at all Trouble relaxin = Not at all Being so restless that it is hard to sit still: 0 = Not at all Becoming easily annoyed or irritable: 0 = Not at all Feeling afraid as if something awful might happen: 0 = Not at all Total DYLON-7 score (0-4 normal; 5-9 mild; 10-14 moderate; 15-21 severe): 0 Source: Developed by Drs. Jose Coronel, Genia Hanson, Rudy Tucker and colleagues, with an educational radha from [employer]. Review of Systems Const Denies poor appetite and Denies weakness Eyes Denies no additional complaints ENT Reports Normal hearing present, Denies dizziness, Denies nasal congestion, Denies tinnitus and Denies sore throat Card Denies chest pain, Denies syncope, Denies rapid heart rate and Denies dyspnea Resp Denies cough and Denies dyspnea GI Denies change in stool character, Reports constipation, Denies diarrhea, Denies nausea and Denies vomiting Denies urinary frequency, Denies difficulty voiding and Denies dysuria Neuro Reports Normal hearing present, Denies confusion, Denies dizziness, Denies syncope and Denies weakness Psych Denies confusion Physical exam (Primary Care) Vital Signs: Last Vital Signs Pulse 85 12/14/23 12:24 BP 134/78 12/14/23 12:24 Pulse Ox 98 12/14/23 12:24 Oxygen Delivery Method Room Air 12/14/23 12:24 BMI result Body Mass Index 40.4 Tobacco/Smoking Status: Tobacco use Status Tobacco use date assessed 12/14/23 12/14/23 12:27 Patient Tobacco Use Status Former Tobacco user 12/14/23 12:27 Tobacco use type Cigarette 12/14/23 12:27 e-Cigarette/Vaping Use Never Used 12/14/23 12:27 PHQ-9: PHQ-9 Score PHQ-9: Total score 0 12/14/23 12:46 Depression Screening Interpretation: Negative Thrive Assessment: Date of Thrive Assessment Date Thrive assessed 12/14/23 12/14/23 12:27 Currently or been in a relationship where the following occur: no concerns reported Const General: No confusion Orientation/consciousness: No confusion HENMT Head: Yes normocephalic Ears: external ears normal and TM's normal bilaterally Face and sinus: Yes normal facial exam Mouth: moist mucous membranes Throat: Yes tonsils normal Eyes Conjunctivae: conjunctivae normal Pupils: Equal, round and reactive pupils present and Pupil accommodation reflex normal Direct Ophthalmoscopy: normal light reflex Neck Neck: No lymphadenopathy Thyroid: Thyroid normal Chest Chest palpation & inspection: normal inspection of the chest Resp Effort & Inspection: normal respiratory effort and no audible wheezes Auscultation: clear to auscultation bilaterally, no crackles, no wheezes and lung sounds not diminished Cardio Rate: regular rate Rhythm: regular rhythm Peripheral pulses: radial pulses present and dorsalis pedis present GI Palpation (GI): no masses Auscultation: normal bowel sounds and normoactive bowel sounds Rectal Exam - Female: deferred Skin General skin exam: no rashes or lesions noted Rashes: no rashes Neuro General: No confusion Cranial nerves: Yes Equal, round and reactive pupils present and Yes Normal h earing present Cognition (Neuro): normal cognition Gait exam (Neuro): Normal gait present Motor exam (neuro): 5/5 motor strength present throughout Deep tendon reflexes (DTR's): Right brachioradialis reflex intensity grade: 2+, Left brachioradialis reflex intensity grade: 2+, Right patellar reflex intensity grade: 2+ and Left patellar reflex intensity grade: 2+ Extrem General: No edema Assessment and Plan Assessment & Plan (1) Annual physical exam: Code(s): Z00.00 - Encounter for general adult medical examination without abnormal findings (2) Obesity: Code(s): E66.9 - Obesity, unspecified Plan: Diet and exercise (3) Hypertension: Code(s): I10 - Essential (primary) hypertension Qualifiers: Hypertension type: essential hypertension Qualified Code(s): I10 - Essential (primary) hypertension Plan: Continue with blood pressure medication. Decrease salt intake and exercise presently on hydrochlorothiazide 12.5 mg lisinopril 10 mg once a day (4) Chronic kidney disease, stage III (moderate): Code(s): N18.30 - Chronic kidney disease, stage 3 unspecified Qualifiers: Chronic kidney disease stage 3 subtype: stage 3a (GFR 45-59) Qualified Code(s): N18.31 - Chronic kidney disease, stage 3a Plan: Patient has seen Nephrology and advised to control blood pressure. (5) Asthma: Comment: no inhaler Code(s): J45.909 - Unspecified asthma, uncomplicated Qualifiers: Asthma severity: mild Asthma persistence: intermittent Asthma complication type: uncomplicated Qualified Code(s): J45.20 - Mild intermittent asthma, uncomplicated Plan: Stable (6) Hypercholesterolemia: Code(s): E78.00 - Pure hypercholesterolemia, unspecified Plan: Avoid fried foods, chicken skin, eggs, butter margarine, pastries and meat. Be it pork or beef they have a lot of cholesterol LDL goal of less than 130 and triglyceride of less than 150 last blood work was November 2022 good (7) GERD (gastroesophageal reflux disease): Code(s): K21.9 - Gastro-esophageal reflux disease without esophagitis Qualifiers: Esophagitis presence: without esophagitis Qualified Code(s): K21.9 - Gastro-esophageal reflux disease without esophagitis Plan: Avoid the foods that causes that usually spicy foods, tomato products, juices, coffee, soda and foods that your sensitive to. After eating do not lie down, allow 3-4 hours before in lie down. And keep the head of bed above 30 degrees to avoid the acid from going up. (8) History of nicotine dependence: Code(s): Z87.891 - Personal history of nicotine dependence (9) Alcohol abuse: Code(s): F10.10 - Alcohol abuse, uncomplicated Plan: advised to abstain from alcohol Orders: Orders Comprehensive Met. Panel Today E78.00 - Pure hypercholesterolemia, unspecified Hemoglobin A1c Today E78.00 - Pure hypercholesterolemia, unspecified Complete Blood Count Auto Diff Today E78.00 - Pure hypercholesterolemia, unspecified Free T4 (Free Thyroxine) Today E78.00 - Pure hypercholesterolemia, unspecified Thyroid Stimulating Hormone Today E78.00 - Pure hypercholesterolemia, unspecified Lipid Panel Today E78.00 - Pure hypercholesterolemia, unspecified Vitamin B12 and Folate Today E78.00 - Pure hypercholesterolemia, unspecified Vitamin D 25-OH Total Today E78.00 - Pure hypercholesterolemia, unspecified Referrals Thoracic Surgery Referral Z87.891 - Personal history of nicotine dependence Medications: New cholecalciferol (vitamin D3) 1,250 mcg PO .Q month 3 caps 3RF Changed From famotidine 20 mg PO BID 180 caps 2RF K21.9 - Gastro-esophageal reflux disease without esophagitis To famotidine 20 mg PO BID PRN K21.9 - Gastro-esophageal reflux disease without esophagitis Coding Level of Care Code Est Pt Prev Care 40-64y(58532) Diagnoses Annual physical exam Z00.00 Obesity E66.9 Essential hypertension I10 Hypertension type: essential hypertension Stage 3a chronic kidney disease N18.31 Chronic kidney disease stage 3 subtype: stage 3a (GFR 45-59) Mild intermittent asthma without complication J45.20 Asthma severity: mild Asthma persistence: intermittent Asthma complication type: uncomplicated Hypercholesterolemia E78.00 Gastroesophageal reflux disease without esophagitis K21.9 Esophagitis presence: without esophagitis History of nicotine dependence Z87.891 Alcohol abuse F10.10
== END 2023-12-14 13:46 | disposition home or self-care (01) ==
PROVIDERS: PCP Internal Medicine; Visit Provider Internal Medicine
DX: Z00.00 Encounter for general adult medical examination without abnormal findings (principal); I12.9 Hypertensive chronic kidney disease with stage 1 through stage 4 chronic kidney disease, or unspecified chronic kidney disease; N18.31 Chronic kidney disease, stage 3a; J45.20 Mild intermittent asthma, uncomplicated; E78.00 Pure hypercholesterolemia, unspecified; K21.9 Gastro-esophageal reflux disease without esophagitis; Z87.891 Personal history of nicotine dependence; F10.10 Alcohol abuse, uncomplicated
CPT/HCPCS: 99396

== ENCOUNTER 2023-12-20 12:53 | Outpatient (REF) | payer MEDICARE, MEDICAID, SELFPAY | END 2023-12-20 12:54 | disposition home or self-care (01) | LOC: HO.MAMMO 12:53 | PROVIDERS: PCP Internal Medicine; Visit Provider Internal Medicine | DX: Z12.31 Encounter for screening mammogram for malignant neoplasm of breast (principal) | CPT/HCPCS: 77063; 77067 ==

== ENCOUNTER → 2023-12-20 13:15 | Outpatient (BNV) | payer MEDICARE, MEDICAID, SELFPAY | PROVIDERS: PCP Internal Medicine; Visit Provider Radiology Diagnostic Radiology | DX: Z12.31 Encounter for screening mammogram for malignant neoplasm of breast (principal) | CPT/HCPCS: 77063; 77067 ==

== ENCOUNTER 2023-12-24 13:20 | Outpatient (REF) | payer MEDICARE, MEDICAID, SELFPAY ==
[2023-12-24 13:39] LABS: MANUAL DIFF FLAG NO
[2023-12-24 13:54] LABS: Basophils Percent Auto 0.5 % (0-2); Eosinophils Absolute Auto 0.3 X10*3/uL (0.0-0.4); Eosinophils Percent Auto 5.7 % (0-4); Hematocrit 36.9 % (37.0-47.0); Hemoglobin 12.2 g/dl (12.0-16.0); Imm Gran Abs Auto 0.03 X10*3/uL (0.00-0.03); Imm Gran Pct Auto 0.5 % (0.0-0.4); Lymphocytes Absolute Auto 1.8 X10*3/uL (1.2-4.9); Lymphocytes Percent Auto 32.1 % (20-40); Mean Corpuscular HGB Conc 33.1 g/dl (31.0-35.0); Mean Corpuscular Hemoglobin 30.6 pg (27.0-33.0); Mean Corpuscular Volume 92.5 fL (80.0-98.0); Monocytes Absolute Auto 0.4 X10*3/uL (0.1-1.2); Monocytes Percent Auto 7.5 % (2-11); Neutrophils Percent Auto 53.7 % (45-73); Platelet Count 246 X10*3/uL (160-400); Red Blood Count 3.99 X10*6/uL (4.20-5.50); Red Cell Distribution Width 13.7 % (11.0-16.0); White Blood Count 5.6 X10*3/uL (4.8-10.8)
[2023-12-24 14:17] LABS: Estimated Average Glucose 108 mg/dL; Hemoglobin A1c % 5.4 % (<6.0)
[2023-12-24 14:46] LABS: Free T4 (Free Thyroxine) 0.91 ng/dL (0.71-1.85); Thyroid Stimulating Hormone 2.57 uIU/mL (0.32-4.0); Vitamin D 25-OH Total 53.5 ng/mL (>30)
[2023-12-24 14:53] LABS: Folate 5.9 ng/mL (> or = 4.0); Vitamin B12 1501 pg/mL (200-900)
[2023-12-24 15:03] LABS: Alanine Aminotransferase 17 U/L (0-31); Albumin Level 4.3 g/dL (3.5-5.0); Alkaline Phosphatase 108 U/L (39-117); Anion Gap 13 (12-20); Aspartate Amino Transferase 17 U/L (5-31); Bilirubin Total 0.3 mg/dL (0.0-1.0); Blood Urea Nitrogen 26 mg/dL (9-16); Calcium 10.1 mg/dL (8.4-10.2); Carbon Dioxide 28 mmol/L (22-29); Chloride 102 mmol/L (96-108); Cholesterol 213 mg/dL (<200); Estimated Glomerular Filt Rate 41; Glucose Random 96 mg/dL (60-115); HDL Cholesterol 60 mg/dL (>40); LDL Cholesterol Calculated 126 mg/dL (<100); Potassium 3.9 mmol/L (3.3-5.1); Sodium 139 mmol/L (135-145); Total Protein 8.1 g/dL (6.5-8.0); Triglycerides 136 mg/dL (<150)
== END 2023-12-24 13:21 | disposition home or self-care (01) ==
LOC: HO.LAB 13:20
PROVIDERS: PCP Internal Medicine; Visit Provider Internal Medicine
DX: E78.00 Pure hypercholesterolemia, unspecified (principal)
CPT/HCPCS: 36415; 80053; 80061; 82306; 82607; 82746; 83036; 84439; 84443; 85025

== ENCOUNTER 2024-01-31 08:56 | Outpatient (REF) | payer MEDICARE, MEDICAID, SELFPAY ==
[2024-01-31 10:20] LABS: Appearance Urine Cloudy; Color Urine Yellow; Glucose Urine UA Negative (Negative); Leukocyte Esterase Urine Moderate (2+) (Negative); Nitrite Urine Negative (Negative); Specific Gravity - Urine 1.015 (1.005-1.025); UMIC TRIGGER UA YES; Urine Blood Negative (Negative); Urine Ketones Negative (Negative); Urine Protein Negative (Neg-Trace)
[2024-01-31 11:02] LABS: Bacteria Urine 2+ (None Seen); RBC Urine 0-2 /HPF (0-2)
== END 2024-01-31 08:57 | disposition home or self-care (01) ==
LOC: HO.LAB 08:56
PROVIDERS: PCP Internal Medicine; Visit Provider Internal Medicine Hypertension Specialist
DX: N18.30 Chronic kidney disease, stage 3 unspecified (principal)
CPT/HCPCS: 81001; 81003; 99212

== ENCOUNTER 2024-01-31 12:57 | Outpatient (AMB) | payer MEDICARE, MEDICAID, SELFPAY ==
[2024-01-31 13:05] VITALS: BP 90/56; PULSE 82; O2SAT 97; BMI 40.4
--- NOTE | 2024-01-31 13:05 | HO.NEPHOV ---
Vital Signs 01/31/24 13:05 01/31/24 13:31 Height 5 ft 8 in Weight 266 lb BMI 40.4 BP 90/56 L 80/50 L Blood Pressure Location Lt brachial Rt brachial Position Sitting Sitting Pulse 82 Pulse Source Pulse Oximeter Pulse Oximetry (%) 97 Oxygen Delivery Method Room Air Intake Visit Reasons: 4mo follow up/ Confirmed Training Specialist Required: No Accompanied by: Spouse Allergies surgical tape Allergy (Severe, Uncoded 12/14/23 12:25) severe rash Medication List - Last Reconciled 01/31/24 by Jeff Steward MD biotin 1 mg PO DAILY famotidine 20 mg PO BID PRN lisinopril 10 mg PO DAILY mupirocin 2% 1 appl topical BID 7 days thiamine HCl (vitamin B1) 50 mg PO DAILY 90 days zinc 100 mg PO DAILY HPI Comments Details: 53-year-old woman with a history of hypertension mild CKD history of smoking and GERD. She is here for follow-up. She used to drink up to 12 cans of beer a day. She is now cut down to about 8 a day. [facility] Medical History (Updated 12/14/23 @ 13:25 by Tio Conway MD) Breast cancer screening by mammogram Vision loss, bilateral Laceration of right breast Obesity Tubulovillous adenoma Hematoma Vaginal candidiasis Cervical cancer screening Breast density Tubular adenoma of colon Tobacco abuse Asthma Hypercholesterolemia Chronic kidney disease, stage III (moderate) Alcohol abuse Obesity (BMI 30-39.9) GERD (gastroesophageal reflux disease) Hypertension Vitamin D deficiency Surgical History H/O colonoscopy History of tracheostomy History of ventriculoperitoneal shunting History of cholecystectomy Family History Father HTN (hypertension) CVD (cardiovascular disease) Myocardial infarct Substance abuse Mother Skin cancer Cancer Maternal Grandmother Breast cancer Brother No problems noted. Sister No problems noted. Other Mental health disorder Social History Household Members: None Housing: Apartment Are you a primary healthcare financial analyst to a significant other at home: No Do you presently have visiting nurse or other home services: No Alcohol intake: current Alcohol intake frequency: a few times a week Alcohol type: beer Comment: 6 days a week 67 drinks Patient Tobacco Use Status: Former Tobacco user Tobacco use type: Cigarette Cigarette Packs Per Day: 1 Cigarettes Per Day: 20.0 Years Smoked: Quit 2021 e-Cigarette/Vaping Use: Never Used Second Hand Smoke Exposure: No service: No Current occupational status: disabled Cognitive needs: No Hearing needs: No Vision needs: Yes Physical Exam Vital Signs: Last Vital Signs Pulse 82 01/31/24 13:05 BP 90/56 L 01/31/24 13:05 Pulse Ox 97 01/31/24 13:05 Oxygen Delivery Method Room Air 01/31/24 13:05 BMI result Body Mass Index 40.4 Awake. Comfortable. Neck is supple. Mucosa moist. Lungs bilateral scattered rhonchi. Heart S1-S2 heard no gallop. Abdomen soft. Extremities no edema. No involuntary movements. No myoclonus. Results Reviewed Nephrology Results: Hgb 12.2 g/dl (12.0-16.0) 12/24/23 WBC 5.6 X10*3/uL (4.8-10.8) 12/24/23 Plt Count 246 X10*3/uL (160-400) 12/24/23 Sodium 139 mmol/L (135-145) 12/24/23 Potassium 3.9 mmol/L (3.3-5.1) 12/24/23 Chloride 102 mmol/L (96-108) 12/24/23 Carbon Dioxide 28 mmol/L (22-29) 12/24/23 BUN 26 mg/dL (9-16) H 12/24/23 Creatinine 1.35 mg/dL (0.5-1.4) 12/24/23 Calcium 10.1 mg/dL (8.4-10.2) 12/24/23 Urine Protein Negative mg/dL (Neg-Trace) 01/31/24 Urine Creatinine 150.75 mg/dL 10/19/23 Protein/Creatinin Ratio TNP 05/13/23 Renal US 10/08/23 Assessment & Plan Assessment & Plan (1) Chronic kidney disease, stage III (moderate): Code(s): N18.30 - Chronic kidney disease, stage 3 unspecified Category: Medical Qualifiers: Chronic kidney disease stage 3 subtype: stage 3a (GFR 45-59) Qualified Code(s): N18.31 - Chronic kidney disease, stage 3a Plan Middle-aged man with hypertension and CKD. Serum creatinine has been staying around 1.5 mg/dL. Probably this is her baseline. Elif probably has hypertensive nephrosclerosis. No evidence of obstruction. No reason to believe that she is any active glomerulonephritis or interstitial disease at this time. Urine sediments bland without any significant proteinuria Goal is to slow the progression of renal disease Blood pressure is rather low. Discontinued hydrochlorothiazide 12.5 mg q.d. Continue with same dose of lisinopril. Avoid nephrotoxic agents. We discussed smoking cessation. Encouraged her to cut back on alcohol intake. And she will benefit from weight loss as well Orders: Orders Complete Blood Count Auto Diff 4 Months N18.30 - Chronic kidney disease, stage 3 unspecified Comprehensive Met. Panel 4 Months N18.9 - Chronic kidney disease, unspecified UA and rflx microscopic 4 Months N18.31 - Chronic kidney disease, stage 3a Medications: Discontinued hydrochlorothiazide Discontinued Reason: Doctor's Order 12.5 mg PO QAM 90 caps 2RF I10 - Essential (primary) hypertension Coding Level of Care Code Est Pt Level 4 (18824) Diagnoses Stage 3a chronic kidney disease N18.31 Chronic kidney disease stage 3 subtype: stage 3a (GFR 45-59)
[2024-01-31 13:31] VITALS: BP 80/50
== END 2024-01-31 13:29 | disposition home or self-care (01) ==
PROVIDERS: PCP Internal Medicine; Visit Provider Internal Medicine Hypertension Specialist
DX: N18.31 Chronic kidney disease, stage 3a (principal)
CPT/HCPCS: 99214

== ENCOUNTER 2024-02-11 15:55 | Outpatient (AMB) | payer MEDICARE, MEDICAID, SELFPAY ==
[2024-02-11 16:00] VITALS: BP 98/60; PULSE 56; O2SAT 97; BMI 40.1
--- NOTE | 2024-02-11 16:00 | A.OFFPC_ITS ---
Vital Signs 02/11/24 16:00 Height 5 ft 8 in Weight 264 lb BMI 40.1 BP 98/60 Blood Pressure Location Lt brachial Position Sitting Pulse 56 Pulse Source Pulse Oximeter Pulse Oximetry (%) 97 Oxygen Delivery Method Room Air Intake Visit Reasons: Med F/Up Allergies surgical tape Allergy (Severe, Uncoded 02/11/24 16:07) severe rash Medication List - Last Reconciled 02/11/24 by Tio Conway MD biotin 1 mg PO DAILY cyanocobalamin (vitamin B-12) 1,000 mcg PO DAILY famotidine 20 mg PO BID PRN lisinopril 10 mg PO DAILY mupirocin 2% 1 appl topical BID 7 days thiamine HCl (vitamin B1) 50 mg PO DAILY 90 days zinc 100 mg PO DAILY Tobacco use date assessed: 12/14/23 Dental Screening Dental Screen Date: 12/14/23 HPI Med F/Up HPI Details 54-year-old obese female with hypertensi on, chronic kidney disease, asthma hypercholesterolemia GERD with a history of alcohol abuse and nicotine dependence. Coming in follow-up. Patient's mammogram is up-to-date colonoscopy is up-to-date. Patient is being followed up by Nephrology seen January 30 diagnosis of chronic kidney disease stage 3 with hypertension and chronic kidney disease hypertensive nephrosclerosis noted blood pressure to be low discontinued hydrochlorothiazide stop smoking! [facility] Medical History (Updated 02/07/24 @ 16:03 by Saba Ames PA-C) Vision loss, bilateral History of hepatitis C Alcohol abuse Chronic kidney disease, stage III (moderate) Hypertension Hypercholesterolemia Asthma Personal history of nicotine dependence GERD (gastroesophageal reflux disease) Tubular adenoma of colon Tubulovillous adenoma Vitamin D deficiency Obesity Laceration of right breast Breast density Hematoma Surgical History (Updated 02/07/24 @ 16:02 by Saba Ames PA-C) History of colonoscopy History of cholecystectomy History of excision of lesion History of tracheostomy History of ventriculoperitoneal shunting Family History Father HTN (hypertension) CVD (cardiovascular disease) Myocardial infarct Substance abuse Mother Skin cancer Cancer Maternal Grandmother Breast cancer Brother No problems noted. Sister No problems noted. Other Mental health disorder Social History Household Members: None Housing: Apartment Are you a primary healthcare consultant to a significant other at home: No Do you presently have visiting nurse or other home services: No Alcohol intake: current Alcohol intake frequency: a few times a week Alcohol type: beer Comment: 6 days a week 67 drinks Patient Tobacco Use Status: Former Tobacco user Tobacco use type: Cigarette Cigarette Packs Per Day: 1 Cigarettes Per Day: 20.0 Years Smoked: Quit 2021 e-Cigarette/Vaping Use: Never Used Second Hand Smoke Exposure: No service: No Current occupational status: disabled Cognitive needs: No Hearing needs: No Vision needs: Yes Questionnaire Thrive Questionnaire Date Thrive assessed: 12/14/23 DYLON-7 AMB Questionnaire DYLON-7 Date DYLON - 7 assessed: 12/14/23 Source: Developed by Drs. Jose Coronel, Genia Hanson, Rudy Tucker and colleagues, with an educational radha from [employer]. Physical exam (Primary Care) Vital Signs: Last Vital Signs Pulse 56 02/11/24 16:00 BP 98/60 02/11/24 16:00 Pulse Ox 97 02/11/24 16:00 Oxygen Delivery Method Room Air 02/11/24 16:00 BMI result Body Mass Index 40.1 Tobacco/Smoking Status: Tobacco use Status Tobacco use date assessed 12/14/23 02/11/24 16:01 Patient Tobacco Use Status Former Tobacco user 02/11/24 16:01 Tobacco use type Cigarette 02/11/24 16:01 e-Cigarette/Vaping Use Never Used 02/11/24 16:01 Thrive Assessment: Date of Thrive Assessment Date Thrive assessed 12/14/23 02/11/24 16:01 Const General: alert; No acute distress Eyes Conjunctivae: conjunctivae normal Resp Auscultation: clear to auscultation bilaterally Cardio Rate: regular rate Rhythm: regular rhythm GI Inspection: Yes normal to inspection Extrem General: Yes normal to inspection and No edema Assessment and Plan Assessment & Plan (1) Chronic kidney disease, stage III (moderate): Code(s): N18.30 - Chronic kidney disease, stage 3 unspecified Qualifiers: Chronic kidney disease stage 3 subtype: stage 3a (GFR 45-59) Qualified Code(s): N18.31 - Chronic kidney disease, stage 3a Plan: Patient has been seen by Nephrology and advised to take out hydrochlorothiazide due to the blood pressure being lower. Repeat blood work is better. (2) Alcohol abuse: Code(s): F10.10 - Alcohol abuse, uncomplicated Plan: Patient is strongly advised to stop drinking alcohol (3) Hypertension: Code(s): I10 - Essential (primary) hypertension Qualifiers: Hypertension type: essential hypertension Qualified Code(s): I10 - Essential (primary) hypertension Plan: Continue with blood pressure medication. Decrease salt intake and exercise noted to have low blood pressure hydrochlorothiazide taken out. PAtient has been taking the HCTZ still and instead threw out famotidine- calrified with patient (4) Hypercholesterolemia: Code(s): E78.00 - Pure hypercholesterolemia, unspecified Plan: Avoid fried foods, chicken skin, eggs, butter margarine, pastries and meat. Be it pork or beef they have a lot of cholesterol LDL goal of less than 130 and triglyceride of less than 150 (5) GERD (gastroesophageal reflux disease): Code(s): K21.9 - Gastro-esophageal reflux disease without esophagitis Qualifiers: Esophagitis presence: without esophagitis Qualified Code(s): K21.9 - Gastro-esophageal reflux disease without esophagitis Plan: Avoid the foods that causes that usually spicy foods, tomato products, juices, coffee, soda and foods that your sensitive to. After eating do not lie down, allow 3-4 hours before in lie down. And keep the head of bed above 30 degrees to avoid the acid from going up. (6) Obesity: Code(s): E66.9 - Obesity, unspecified Plan: Diet and exercise Medications: Refilled famotidine 20 mg PO BID PRN 180 caps 1RF gerd K21.9 - Gastro-esophageal reflux disease without esophagitis mupirocin 2% 1 appl topical BID 50 grams 1RF 7 days Coding Level of Care Code Est Pt Level 4 (80796) Complex EM visit Add On G2211 Diagnoses Stage 3a chronic kidney disease N18.31 Chronic kidney disease stage 3 subtype: stage 3a (GFR 45-59) Alcohol abuse F10.10 Essential hypertension I10 Hypertension type: essential hypertension Hypercholesterolemia E78.00 Gastroesophageal reflux disease without esophagitis K21.9 Esophagitis presence: without esophagitis Obesity E66.9
== END 2024-02-11 16:50 | disposition home or self-care (01) ==
PROVIDERS: PCP Internal Medicine; Visit Provider Internal Medicine
DX: I12.9 Hypertensive chronic kidney disease with stage 1 through stage 4 chronic kidney disease, or unspecified chronic kidney disease (principal); N18.31 Chronic kidney disease, stage 3a; E66.9 Obesity, unspecified; Z68.41 Body mass index [BMI] 40.0-44.9, adult; F10.10 Alcohol abuse, uncomplicated; E78.00 Pure hypercholesterolemia, unspecified; K21.9 Gastro-esophageal reflux disease without esophagitis
CPT/HCPCS: 99214; G2211

== ENCOUNTER 2024-03-24 10:29 | Outpatient (AMB) | payer MEDICARE, MEDICAID, SELFPAY ==
--- NOTE | 2024-03-24 07:57 | A.OFFVIS_ITS ---
Intake Visit Reasons: Former Smoker Allergies surgical tape Allergy (Severe, Uncoded 02/11/24 16:07) severe rash HPI HPI Former Smoker: Details: Initial visit for this 4yo former smoker with a 35PYH. Patient started smoking at age 17 for 35 years at 1ppd. She quit 10/2021. . Denies marijuana use. Reports social second hand smoke exposure. Denies exposure to chemicals or substances like asbestos. . Denies known family history of lung cancer. Denies personal history of cancers. Denies chest CT in last year. . Denies recent travel outside the [place]. Denies recent respiratory illness or recent hospitalization for respiratory iss ues. Denies testing positive for COVID. Admits receiving COVID Vaccine. x 4. . Denies fever, chills, new/worsening cough, hemoptysis, hoarseness or dysphagia. Denies significant chest pain, significant dyspnea or unintentional weight loss. Patient Lung Cancer Screening Questionnaire reviewed with patient by provider. . Shared Decision Making Completed. Patient meets criteria. Discussed in detail with patient, the risk vs benefit of LDCT screening. Patient consents to proceed with scan. Discussed and encouraged continued smoking cessation. [facility] Medical History (Updated 03/24/24 @ 10:42 by Saba Ames PA-C) Vision loss, bilateral History of hepatitis C Alcohol abuse Chronic kidney disease, stage III (moderate) Hypertension Hypercholesterolemia Asthma Personal history of nicotine dependence GERD (gastroesophageal reflux disease) Tubular adenoma of colon Tubulovillous adenoma Vitamin D deficiency Obesity Laceration of right breast Breast density Hematoma Surgical History (Updated 02/07/24 @ 16:02 by Saba Ames PA-C) History of colonoscopy History of cholecystectomy History of excision of lesion History of tracheostomy History of ventriculoperitoneal shunting Family History Father HTN (hypertension) CVD (cardiovascular disease) Myocardial infarct Substance abuse Mother Skin cancer Cancer Maternal Grandmother Breast cancer Brother No problems noted. Sister No problems noted. Other Mental health disorder Social History (Updated 03/24/24 @ 10:42 by Saba Ames PA-C) Household Members: None Housing: Apartment Are you a primary career law clerk to a significant other at home: No Do you presently have visiting nurse or other home services: No Alcohol intake: current Alcohol intake frequency: a few times a week Alcohol type: beer Comment: 6 days a week 67 drinks Patient Tobacco Use Status: Former Tobacco user Tobacco use type: Cigarette Years Smoked: (onset 17yo, 1ppd x 35yrs, 35pyh, quit 10/2021) e-Cigarette/Vaping Use: Never Used Second Hand Smoke Exposure: No service: No Current occupational status: disabled Cognitive needs: No Hearing needs: No Vision needs: Yes Assessment & Plan Assessment & Plan (1) Personal history of nicotine dependence: Comment: (former smoker - onset 17yo, 1ppd x 35yrs, 35pyh, quit 10/2021) Code(s): Z87.891 - Personal history of nicotine dependence Category: Medical Plan: - SDM visit completed today in office. - Patient meets criteria for LDCT for lung cancer screening purposes and is asymptomatic. - Smoking cessation counseling offered. Patients can always call [phone]. - Will arrange for a LDCT scan of the chest for screening purposes at [facility]. - Risks, benefits, and alternatives were discussed in detail and the patient agrees to proceed. - Risks discussed include but are not limited to: radiation exposure, anxiety during testing and while awaiting results, false negatives, false positives and possibility of additional intervention such as further imaging or surgical procedures for benign disease. - Benefits are obviously detection of lung cancer at an early stage which can lead to improved outcomes. - Discussed the importance of screening program compliance with adherence to yearly LDCT scan as scheduled - or sooner interval scans for personalized screening regimen. - Discussed follow up plan. Our office will send a letter discussing results and if needed set up phone call and office visit based on CT findings. - Patient educated on results categorization and the management decisions for suspicious findings potentially found on the screening LDCT scan. Any patient with a Lung RADS score of 3 or 4 will be reviewed by a multidisciplinary team at [facility] to form a plan of action in regards to scan findings. - If further work up is warranted for a suspicious lung finding this will be followed by the Lung Cancer Screening program in conjunction with the Thoracic Surgery Department at [facility]. - A copy of the office note and LDCT will be sent to the patient's PCP - as well as documentation on any associated further plans of care. - Incidental findings on LDCT are the PCP's responsibility. These findings are indicated with an S finding on the LDCT Assessment. A note discussing the findings will be sent to the PCP who is then responsible for further management. - All questions answered.? Coding Level of Care Code Lung Cancer Screening G0296 Diagnoses Personal history of nicotine dependence Z87.891
== END 2024-03-24 11:30 | disposition home or self-care (01) ==
PROVIDERS: PCP Internal Medicine; Referring Provider Internal Medicine; Visit Provider Physician Assistant Medical
DX: Z87.891 Personal history of nicotine dependence (principal)
CPT/HCPCS: G0296

== ENCOUNTER 2024-03-24 10:50 | Outpatient (REF) | payer MEDICARE, MEDICAID, SELFPAY ==
--- NOTE | ~2024-03-24 | CT_ITS ---
EXAMINATION: CT LOW-DOSE SCREENING CHEST WITHOUT CONTRAST CLINICAL INFORMATION: Personal history of nicotine dependence. Former smoker. The patient has a 41 pack-year history of smoking, having quit 2 years ago. COMPARISON: None available. TECHNIQUE: Multidetector volumetric CT imaging of the chest is performed on a Siemens SOMATOM Definition scanner without contrast using low dose technique. Additional 2D coronal and sagittal reformatted images and axial 3D maximum intensity projection (MIP) images are generated on the CT workstation. This CT examination was performed using dose optimization techniques as appropriate, variously including the following: *Automated exposure control *Adjustment of mA and/or kV according to patient size (this includes techniques or standardized protocols for targeted exams where dose is matched to indication/reason for exam; i.e. extremities or head) *Use of iterative reconstruction technique TOTAL EXAM DLP: 74 mGy-cm. CTDIvol: 2.29 mGy. FINDINGS: PULMONARY NODULES: No suspicious pulmonary nodules. LUNGS: Lungs bilaterally symmetrically expanded. There is mild emphysema and bronchial thickening without bronchiectasis. No effusion or pneumothorax. Central airways patent. MEDIASTINUM: No mediastinal, hilar or axillary adenopathy or free fluid collection. CORONARY ARTERY CALCIFICATION: None visualized on this study. THYROID GLAND: Unremarkable to the extent seen. CARDIOVASCULAR STRUCTURES: Aortic and heart size normal. No pericardial effusion. 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 UPPER ABDOMEN: Included portions of the solid organs in the upper abdomen unremarkable on noncontrast imaging aside from the presence of hepatic steatosis. Status post cholecystectomy. OSSEOUS STRUCTURES: No suspicious focal findings. CT/CT lung screening IMPRESSION: No suspicious pulmonary nodules. ASSESSMENT: 1. Lung-RADS Category 1: Negative. There are no nodules or there are definitely benign nodules. N/A 2. Lung-RADS Category S: Negative. There are no clinically significant or potentially clinically significant findings not related to the lungs requiring urgent additional evaluation. RECOMMENDATION: Continued routine annual low-dose CT lung screening in 1 year is recommended. An order for CT CHEST LOW DOSE CANCER SCREENING ([id number]) can be placed. Electronically signed by: Tani Arreola MD 05/11/2024 10:18 PM EDT
== END 2024-03-24 10:51 | disposition home or self-care (01) ==
LOC: HO.CT 10:50
PROVIDERS: PCP Internal Medicine; Visit Provider Physician Assistant Medical
DX: Z12.2 Encounter for screening for malignant neoplasm of respiratory organs (principal); Z87.891 Personal history of nicotine dependence
CPT/HCPCS: 71271; G0296

== ENCOUNTER 2024-04-20 13:05 | Outpatient (AMB) | payer MEDICARE, MEDICAID, SELFPAY ==
[2024-04-20 13:06] VITALS: BP 134/78; PULSE 66; O2SAT 97; BMI 40.4
--- NOTE | 2024-04-20 13:06 | A.OFFPC_ITS ---
Vital Signs 04/20/24 13:06 Height 5 ft 8 in Weight 266 lb BMI 40.4 BP 134/78 Blood Pressure Location Lt brachial Position Sitting Pulse 66 Pulse Source Pulse Oximeter Pulse Oximetry (%) 97 Oxygen Delivery Method Room Air Intake Visit Reasons: ? Sleep Apnea Paper Making Machine Operator Required: No Allergies surgical tape Allergy (Severe, Uncoded 04/20/24 13:07) severe rash Medication List - Last Reconciled 04/20/24 by Amy Chase PA-C biotin 1 mg PO DAILY cyanocobalamin (vitamin B-12) 1,000 mcg PO DAILY famotidine 20 mg PO BID PRN lisinopril 10 mg PO DAILY mupirocin 2% 1 appl topical BID 7 days thiamine HCl (vitamin B1) 50 mg PO DAILY 90 days zinc 100 mg PO DAILY Tobacco use date assessed: 12/14/23 Dental Screening Dental Screen Date: 12/14/23 HPI ? Sleep Apnea HPI Details 54-year-old obese female with hypertensi on, chronic kidney disease, asthma hypercholesterolemia GERD with a history of alcohol abuse and nicotine dependence? last seen by Dr. Conway coming in for acute problem.? Patient was recently seen by pulmonology for lung cancer screening in add low-dose CT scan completed. Patient presents today with her boyfriend who mentions that she has frequent pauses in her breathing while she sleeps as well as snoring. She endorses difficulty sleeping almost every night as well as daytime somnolence. She was previously evaluated for obstructive sleep apnea but did not complete the test. She also mentions that she takes a vitamin-D supplement daily and would like to be given 1 that is monthly instead. [facility] Medical History (Updated 04/20/24 @ 13:24 by Amy Chase PA-C) Vision loss, bilateral History of hepatitis C Alcohol abuse Chronic kidney disease, stage III (moderate) Hypertension Hypercholesterolemia Asthma Personal history of nicotine dependence GERD (gastroesophageal reflux disease) Tubular adenoma of colon Tubulovillous adenoma Vitamin D deficiency Obesity Laceration of right breast Breast density Hematoma Surgical History (Updated 02/07/24 @ 16:02 by Saba Ames PA-C) History of colonoscopy History of cholecystectomy History of excision of lesion History of tracheostomy History of ventriculoperitoneal shunting Family History Father HTN (hypertension) CVD (cardiovascular disease) Myocardial infarct Substance abuse Mother Skin cancer Cancer Maternal Grandmother Breast cancer Brother No problems noted. Sister No problems noted. Other Mental health disorder Social History (Updated 03/24/24 @ 10:42 by Saba Ames PA-C) Household Members: None Housing: Apartment Are you a primary geriatric personal care aide to a significant other at home: No Do you presently have visiting nurse or other home services: No Alcohol intake: current Alcohol intake frequency: a few times a week Alcohol type: beer Comment: 6 days a week 67 drinks Patient Tobacco Use Status: Former Tobacco user Tobacco use type: Cigarette Years Smoked: (onset 17yo, 1ppd x 35yrs, 35pyh, quit 10/2021) e-Cigarette/Vaping Use: Never Used Second Hand Smoke Exposure: No service: No Current occupational status: disabled Cognitive needs: No Hearing needs: No Vision needs: Yes Questionnaire Thrive Questionnaire Date Thrive assessed: 12/14/23 AUDIT C Alcohol Use Questionnaire (AUDIT-C) 1. How often do you have a drink containing alcohol?: 4 or more times a week 2. How many drinks containing alcohol do you have on a typical day when you are drinking?: 5 or 6 3. How often do you have six or more drinks on one occasion?: Weekly Total Score: 9 DYLON-7 AMB Questionnaire DYLON-7 Date DYLON - 7 assessed: 12/14/23 Source: Developed by Drs. Jose Coronel, Genia Hanson, Rudy Tucker and colleagues, with an educational radha from [employer]. Review of Systems Const Reports snoring Eyes Reports no additional complaints ENT Reports no additional complaints Card Denies chest pain, Denies lightheadedness and Reports dyspnea (At night only) Resp Denies cough, Reports dyspnea (At night only) and Reports snoring GI Reports no additional complaints Reports no additional complaints Musc Reports no additional complaints and Denies abnormal gait Skin/Breast Reports system reviewed and no additional complaints, except as documented Neuro Denies abnormal gait Psych Reports no additional complaints Physical exam (Primary Care) Vital Signs: Last Vital Signs Pulse 66 04/20/24 13:06 BP 134/78 04/20/24 13:06 Pulse Ox 97 04/20/24 13:06 Oxygen Delivery Method Room Air 04/20/24 13:06 BMI result Body Mass Index 40.4 Tobacco/Smoking Status: Tobacco use Status Tobacco use date assessed 12/14/23 04/20/24 13:07 Patient Tobacco Use Status Former Tobacco user 04/20/24 13:07 Tobacco use type Cigarette 04/20/24 13:07 e-Cigarette/Vaping Use Never Used 04/20/24 13:07 Thrive Assessment: Date of Thrive Assessment Date Thrive assessed 12/14/23 04/20/24 13:07 Const General: cooperative, healthy appearing, comfortable and no acute distress Orientation/consciousness: patient oriented x3 HENMT Head: Yes normocephalic Ears: hearing grossly normal bilaterally General nose exam: Normal external nose present Eyes General: appearance normal, both eyes and all related structures Conjunctivae: conjunctivae normal Neck Neck: Yes full ROM and Yes no lymphadenopathy Resp Effort & Inspection: normal respiratory effort Auscultation: clear to auscultation bilaterally, no crackles, no rales, no rhonchi and no wheezes Cardio Rate: regular rate Rhythm: regular rhythm Skin General skin exam: no rashes or lesions noted Neuro General: patient oriented x3 Gait exam (Neuro): Normal gait present Extrem General: Yes normal to inspection, Yes full ROM and No edema Psych Affect: normal affect Attitude: cooperative Insight: Good insight present (Psych) Judgement: Good judgement present (Psych) Assessment and Plan Assessment & Plan (1) Hypersomnia: Code(s): G47.10 - Hypersomnia, unspecified Plan: Patient has daytime somnolence paired with snoring and pauses in breathing at night. Endorses difficulty sleeping and wakes up often short of breath throughout the night. We will order for home sleep study. Patient states if it is positive she is wanting the inspire treatment for obstructive sleep apnea. Follow up at next appointment. (2) Vitamin D deficiency: Code(s): E55.9 - Vitamin D deficiency, unspecified Plan: Patient has been taking vitamin-D [id number] and would like to have a prescription strength vitamin-D given to take monthly instead. Prescription given today. Advised patient to have vitamin-D level drawn in 2 months and she may have to return to the daily treatment if levels began to drop. Plan This note was constructed using voice recognition software. While every effort has been made to ensure accuracy and head girls golf coach, still areas may have been included sometimes these areas may affect the content or meeting of the given symptoms. Total time spent caring for the patient today was 20 minutes. This includes time spent before the visit reviewing the chart, time spent during the visit, and time spent after the visit and documentation. Orders: Orders Vitamin D 25-OH (D2 and D3) 2 Months Z00.00 - Encounter for general adult medical examination without abnormal findings RT home sleep study Today G47.10 - Hypersomnia, unspecified, G47.9 - Sleep disorder, unspecified Medications: New ergocalciferol (vitamin D2) 1,250 mcg orally once per month 3 caps 3RF Coding Level of Care Code Est Pt Level 4 (00785) Diagnoses Hypersomnia G47.10 Vitamin D deficiency E55.9
== END 2024-04-20 13:43 | disposition home or self-care (01) ==
PROVIDERS: PCP Internal Medicine
DX: G47.10 Hypersomnia, unspecified (principal); E55.9 Vitamin D deficiency, unspecified
CPT/HCPCS: 99214

== ENCOUNTER 2024-05-24 12:33 | Outpatient (REF) | payer MEDICARE, MEDICAID, SELFPAY ==
[2024-05-24 13:01] LABS: MANUAL DIFF FLAG NO
[2024-05-24 14:02] LABS: Basophils Percent Auto 0.4 % (0-2); Eosinophils Absolute Auto 0.3 X10*3/uL (0.0-0.4); Eosinophils Percent Auto 6.2 % (0-4); Hematocrit 35.9 % (37.0-47.0); Hemoglobin 12.1 g/dl (12.0-16.0); Imm Gran Abs Auto 0.02 X10*3/uL (0.00-0.03); Imm Gran Pct Auto 0.4 % (0.0-0.4); Lymphocytes Absolute Auto 1.8 X10*3/uL (1.2-4.9); Lymphocytes Percent Auto 38.1 % (20-40); Mean Corpuscular HGB Conc 33.7 g/dl (31.0-35.0); Mean Corpuscular Hemoglobin 30.5 pg (27.0-33.0); Mean Corpuscular Volume 90.4 fL (80.0-98.0); Mean Platelet Volume 9.2 fL (9.4-12.3); Monocytes Absolute Auto 0.3 X10*3/uL (0.1-1.2); Monocytes Percent Auto 5.7 % (2-11); Neutrophils Absolute Auto 2.3 x10*3/uL (2.0-8.3); Neutrophils Percent Auto 49.2 % (45-73); Platelet Count 202 X10*3/uL (160-400); Red Blood Count 3.97 X10*6/uL (4.20-5.50); Red Cell Distribution Width 13.2 % (11.0-16.0); White Blood Count 4.7 X10*3/uL (4.8-10.8)
[2024-05-24 14:06] LABS: Appearance Urine Clear; Color Urine Yellow; Glucose Urine UA Negative (Negative); Leukocyte Esterase Urine Trace (Negative); Nitrite Urine Negative (Negative); UMIC TRIGGER UA YES; Urine Blood Negative (Negative); Urine Ketones Negative (Negative); Urine Protein Negative (Neg-Trace)
[2024-05-24 14:14] LABS: Bacteria Urine None Seen (None Seen); RBC Urine 0-2 /HPF (0-2); Squamous Epithelial Cell Urine 0-2 /HPF (0-2); WBC Urine 0-5 /HPF (0-5)
[2024-05-24 14:49] LABS: Alanine Aminotransferase 16 U/L (0-31); Alkaline Phosphatase 101 U/L (39-117); Anion Gap 14 (12-20); Aspartate Amino Transferase 17 U/L (5-31); Bilirubin Total 0.3 mg/dL (0.0-1.0); Blood Urea Nitrogen 18 mg/dL (9-16); Calcium 9.6 mg/dL (8.4-10.2); Carbon Dioxide 25 mmol/L (22-29); Chloride 102 mmol/L (96-108); Estimated Glomerular Filt Rate 40; Glucose Random 89 mg/dL (60-115); Sodium 137 mmol/L (135-145); Total Protein 7.5 g/dL (6.5-8.0)
== END 2024-05-24 12:34 | disposition home or self-care (01) ==
LOC: HO.LAB 12:33
PROVIDERS: PCP Internal Medicine; Visit Provider Internal Medicine Hypertension Specialist
DX: N18.30 Chronic kidney disease, stage 3 unspecified (principal); N18.9 Chronic kidney disease, unspecified
CPT/HCPCS: 36415; 80053; 81001; 81003; 85025

== ENCOUNTER 2024-05-30 12:47 | Outpatient (AMB) | payer MEDICARE, MEDICAID, SELFPAY ==
--- NOTE | 2024-05-30 13:11 | HO.NEPHOV_ITS ---
Vital Signs 05/30/24 13:13 Height 5 ft 8 in Weight 267 lb BMI 40.6 BP 118/80 Blood Pressure Location Lt brachial Position Sitting Pulse 66 Pulse Source Pulse Oximeter Pulse Oximetry (%) 97 Oxygen Delivery Method Room Air Intake Visit Reasons: 4 mon follow up/ Conf Wool Hat Hydraulicker Required: No Accompanied by: Boyfriend Allergies surgical tape Allergy (Severe, Uncoded 04/20/24 13:07) severe rash Medication List - Last Reconciled 05/30/24 by Jeff Steward MD biotin 1 mg PO DAILY cyanocobalamin (vitamin B-12) 1,000 mcg PO DAILY ergocalciferol (vitamin D2) 1,250 mcg orally once per month famotidine 20 mg PO BID PRN lisinopril 10 mg PO DAILY mupirocin 2% 1 appl topical BID 7 days thiamine HCl (vitamin B1) 50 mg PO DAILY 90 days zinc 100 mg PO DAILY HPI Comments Details: 53-year-old woman with a history of hypertension mild CKD history of smoking and GERD. She is here for follow-up. She used to drink up to 12 cans of beer a day. She is now cut down to about 8 a day. [facility] Medical History (Updated 04/20/24 @ 13:24 by Amy Cahse PA-C) Vision loss, bilateral History of hepatitis C Alcohol abuse Chronic kidney disease, stage III (moderate) Hypertension Hypercholesterolemia Asthma Personal history of nicotine dependence GERD (gastroesophageal reflux disease) Tubular adenoma of colon Tubulovillous adenoma Vitamin D deficiency Obesity Laceration of right breast Breast density Hematoma Surgical History History of colonoscopy History of cholecystectomy History of excision of lesion History of tracheostomy History of ventriculoperitoneal shunting Family History Father HTN (hypertension) CVD (cardiovascular disease) Myocardial infarct Substance abuse Mother Skin cancer Cancer Maternal Grandmother Breast cancer Brother No problems noted. Sister No problems noted. Other Mental health disorder Social History Household Members: None Housing: Apartment Are you a primary children's zoo caretaker to a significant other at home: No Do you presently have visiting nurse or other home services: No Alcohol intake: current Alcohol intake frequency: a few times a week Alcohol type: beer Comment: 6 days a week 67 drinks Patient Tobacco Use Status: Former Tobacco user Tobacco use type: Cigarette Years Smoked: (onset 17yo, 1ppd x 35yrs, 35pyh, quit 10/2021) e-Cigarette/Vaping Use: Never Used Second Hand Smoke Exposure: No service: No Current occupational status: disabled Cognitive needs: No Hearing needs: No Vision needs: Yes Physical Exam Vital Signs: Last Vital Signs Pulse 66 05/30/24 13:13 BP 118/80 05/30/24 13:13 Pulse Ox 97 05/30/24 13:13 Oxygen Delivery Method Room Air 05/30/24 13:13 BMI result Body Mass Index 40.6 Results Reviewed Nephrology Results: Hgb 12.1 g/dl (12.0-16.0) 05/24/24 WBC 4.7 X10*3/uL (4.8-10.8) L 05/24/24 Plt Count 202 X10*3/uL (160-400) 05/24/24 Sodium 137 mmol/L (135-145) 05/24/24 Potassium 4.0 mmol/L (3.3-5.1) 05/24/24 Chloride 102 mmol/L (96-108) 05/24/24 Carbon Dioxide 25 mmol/L (22-29) 05/24/24 BUN 18 mg/dL (9-16) H 05/24/24 Creatinine 1.38 mg/dL (0.5-1.4) 05/24/24 Calcium 9.6 mg/dL (8.4-10.2) 05/24/24 Urine Protein Negative mg/dL (Neg-Trace) 05/24/24 Urine Creatinine 150.75 mg/dL 10/19/23 Renal US 10/08/23 Assessment & Plan Assessment & Plan (1) Chronic kidney disease, stage III (moderate): Code(s): N18.30 - Chronic kidney disease, stage 3 unspecified Category: Medical Qualifiers: Chronic kidney disease stage 3 subtype: stage 3a (GFR 45-59) Qualified Code(s): N18.31 - Chronic kidney disease, stage 3a Plan Middle-aged man with hypertension and CKD. Serum creatinine was 1.5 mg/dL. 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 No evidence of obstruction. No reason to believe that she is any active glomerulonephritis or interstitial disease at this time. Urine sediments bland without any significant proteinuria Goal is to slow the progression of renal disease Blood pressure is well controlled No need for hydrochlorothiazide 12.5 mg Continue with same dose of lisinopril. Avoid nephrotoxic agents. We discussed smoking cessation. Encouraged her to cut back on alcohol intake. And she will benefit from weight loss as well Orders: Orders Basic Metabolic Panel 4 Months N18.31 - Chronic kidney disease, stage 3a Coding Level of Care Code Est Pt Level 4 (88554) Diagnoses Stage 3a chronic kidney disease N18.31 Chronic kidney disease stage 3 subtype: stage 3a (GFR 45-59)
[2024-05-30 13:13] VITALS: BP 118/80; PULSE 66; O2SAT 97; BMI 40.6
== END 2024-05-30 14:14 | disposition home or self-care (01) ==
PROVIDERS: PCP Internal Medicine; Visit Provider Internal Medicine Hypertension Specialist
DX: I12.9 Hypertensive chronic kidney disease with stage 1 through stage 4 chronic kidney disease, or unspecified chronic kidney disease (principal); N18.31 Chronic kidney disease, stage 3a
CPT/HCPCS: 99213

== ENCOUNTER → 2024-05-30 12:47 | Outpatient (BNVA) | payer MEDICARE, MEDICAID, SELFPAY | PROVIDERS: PCP Internal Medicine; Visit Provider Internal Medicine Hypertension Specialist | DX: I12.9 Hypertensive chronic kidney disease with stage 1 through stage 4 chronic kidney disease, or unspecified chronic kidney disease (principal); N18.31 Chronic kidney disease, stage 3a | CPT/HCPCS: 99212 ==

== ENCOUNTER → 2024-06-01 13:45 | Outpatient (REF) | payer MEDICARE, MEDICAID, SELFPAY | LOC: HO.SL 13:45 | PROVIDERS: PCP Internal Medicine | DX: G47.30 Sleep apnea, unspecified (principal); G47.10 Hypersomnia, unspecified; G47.9 Sleep disorder, unspecified | CPT/HCPCS: 95806 ==

== ENCOUNTER → 2024-06-05 14:01 | Outpatient (BNV) | payer MEDICARE, MEDICAID, SELFPAY | PROVIDERS: PCP Internal Medicine; Visit Provider Psychiatry & Neurology Neurology | DX: G47.33 Obstructive sleep apnea (adult) (pediatric) (principal) | CPT/HCPCS: 95806 ==

== ENCOUNTER 2024-06-26 13:15 | Outpatient (AMB) | payer MEDICARE, MEDICAID, SELFPAY ==
[2024-06-26 13:16] VITALS: BP 116/74; PULSE 80; O2SAT 98; BMI 40.6
--- NOTE | 2024-06-26 13:17 | A.OFFPC_ITS ---
Vital Signs 06/26/24 13:16 Height 5 ft 8 in Weight 267 lb BMI 40.6 BP 116/74 Blood Pressure Location Lt brachial Position Sitting Pulse 80 Pulse Source Pulse Oximeter Pulse Oximetry (%) 98 Oxygen Delivery Method Room Air Intake Visit Reasons: Hypertension Guest History Clerk Required: No Allergies surgical tape Allergy (Severe, Uncoded 06/26/24 13:17) severe rash Medication List - Last Reconciled 06/26/24 by Tio Conway MD biotin 1 mg PO DAILY cyanocobalamin (vitamin B-12) 1,000 mcg PO DAILY ergocalciferol (vitamin D2) 1,250 mcg orally once per month famotidine 20 mg PO BID PRN lisinopril 10 mg PO DAILY mupirocin 2% 1 appl topical BID 7 days thiamine HCl (vitamin B1) 50 mg PO DAILY 90 days zinc 100 mg PO DAILY Tobacco use date assessed: 12/14/23 Dental Screening Dental Screen Date: 12/14/23 HPI Hypertension HPI Details 54-year-old morbidly obese female smoker with a history of GERD, asthma, chronic kidney disease hypertension, hypercholesterolemia, history of alcohol abuse coming in for follow-up. Recently had sleep study test showing mild sleep apnea June 05 2024 AHI 8 but was recommended to have the APAP 5-20 cm water. Patient is here for follow-up. Patient's mammogram is up-to-date colonoscopy up-to-date. Nephrology notes May 30 diagnosis of chronic kidney disease stage 3 discontinued hydrochlorothiazide diagnosis of hypertensive nephrosclerosis blood pressure is controlled on lisinopril. With the smoking patient had a CT scan of the chest done in May 11 no suspicious pulmonary nodule. Continue annual low-dose CT.. discussed about CPAP but states cannot do.mask and does not want any mask [facility] Medical History (Updated 06/26/24 @ 13:31 by Tio Conway MD) Hypersomnia Difficulty sleeping Vision loss, bilateral History of hepatitis C Alcohol abuse Chronic kidney disease, stage III (moderate) Hypertension Hypercholesterolemia Asthma Personal history of nicotine dependence GERD (gastroesophageal reflux disease) Tubular adenoma of colon Tubulovillous adenoma Vitamin D deficiency Obesity Laceration of right breast Breast density Hematoma Surgical History History of colonoscopy History of cholecystectomy History of excision of lesion History of tracheostomy History of ventriculoperitoneal shunting Family History Father HTN (hypertension) CVD (cardiovascular disease) Myocardial infarct Substance abuse Mother Skin cancer Cancer Maternal Grandmother Breast cancer Brother No problems noted. Sister No problems noted. Other Mental health disorder Social History Household Members: None Housing: Apartment Are you a primary childcare director to a significant other at home: No Do you presently have visiting nurse or other home services: No Alcohol intake: current Alcohol intake frequency: a few times a week Alcohol type: beer Comment: 6 days a week 67 drinks Patient Tobacco Use Status: Former Tobacco user Tobacco use type: Cigarette Years Smoked: (onset 17yo, 1ppd x 35yrs, 35pyh, quit 10/2021) e-Cigarette/Vaping Use: Never Used Second Hand Smoke Exposure: No service: No Current occupational status: disabled Cognitive needs: No Hearing needs: No Vision needs: Yes Questionnaire Thrive Questionnaire Date Thrive assessed: 12/14/23 AUDIT C Alcohol Use Questionnaire (AUDIT-C) 2. How many drinks containing alcohol do you have on a typical day when you are drinking?: 7 to 9 3. How often do you have six or more drinks on one occasion?: Daily or almost daily Total Score: 7 DYLON-7 AMB Questionnaire DYLON-7 Date DYLON - 7 assessed: 12/14/23 Source: Developed by Drs. Jose Coronel, Genia Hanson, Rudy Tucker and colleagues, with an educational radha from [employer]. Physical exam (Primary Care) Vital Signs: Last Vital Signs Pulse 80 06/26/24 13:16 BP 116/74 06/26/24 13:16 Pulse Ox 98 06/26/24 13:16 Oxygen Delivery Method Room Air 06/26/24 13:16 BMI result Body Mass Index 40.6 Tobacco/Smoking Status: Tobacco use Status Tobacco use date assessed 12/14/23 06/26/24 13:23 Patient Tobacco Use Status Former Tobacco user 06/26/24 13:23 Tobacco use type Cigarette 06/26/24 13:23 e-Cigarette/Vaping Use Never Used 06/26/24 13:23 Thrive Assessment: Date of Thrive Assessment Date Thrive assessed 12/14/23 06/26/24 13:23 Const General: alert; No acute distress Eyes Conjunctivae: conjunctivae normal Resp Auscultation: clear to auscultation bilaterally Cardio Rate: regular rate Rhythm: regular rhythm GI Inspection: Yes normal to inspection Extrem General: Yes normal to inspection and No edema Coding Level of Care Code Est Pt Level 4 (61389) Complex EM visit Add On G2211 Diagnoses Mild obstructive sleep apnea G47.33 Stage 3a chronic kidney disease N18.31 Chronic kidney disease stage 3 subtype: stage 3a (GFR 45-59) Essential hypertension I10 Hypertension type: essential hypertension Mild intermittent asthma without complication J45.20 Asthma severity: mild Asthma persistence: intermittent Asthma complication type: uncomplicated Gastroesophageal reflux disease without esophagitis K21.9 Esophagitis presence: without esophagitis Class 3 severe obesity due to excess calories with serious comorbidity and body mass index (BMI) of 40.0 to 44.9 in adult E66.813; E66.01; Z68.41 Obesity type: due to excess calories Obesity classification: adult class 3 (BMI >= 40) Serious obesity comorbidity presence: with serious comorbidity Body mass index: BMI 40.0-44.9 Personal history of nicotine dependence Z87.891 Assessment & Plan Assessment & Plan (1) Mild obstructive sleep apnea: Comment: April 2024 AHI of 8 advised APAP 5-20 cm humidified air Code(s): G47.33 - Obstructive sleep apnea (adult) (pediatric) Category: Medical Plan: Mild obstructive sleep apnea and has been recommended APAP patient declined as she can not wear a mask. (2) Chronic kidney disease, stage III (moderate): Code(s): N18.30 - Chronic kidney disease, stage 3 unspecified Category: Medical Qualifiers: Chronic kidney disease stage 3 subtype: stage 3a (GFR 45-59) Qualified Code(s): N18.31 - Chronic kidney disease, stage 3a Plan: Keep well hydrated, avoid NSAIDs, seen Nephrology continue to control hypertension (3) Hypertension: Code(s): I10 - Essential (primary) hypertension Category: Medical Qualifiers: Hypertension type: essential hypertension Qualified Code(s): I10 - Essential (primary) hypertension Plan: Continue with blood pressure medication. Decrease salt intake and exercise presently on lisinopril 10 mg once a day (4) Asthma: Comment: no inhaler Code(s): J45.909 - Unspecified asthma, uncomplicated Category: Medical Qualifiers: Asthma severity: mild Asthma persistence: intermittent Asthma complication type: uncomplicated Qualified Code(s): J45.20 - Mild intermittent asthma, uncomplicated Plan: Patient is advised to stop smoking! (5) GERD (gastroesophageal reflux disease): Code(s): K21.9 - Gastro-esophageal reflux disease without esophagitis Category: Medical Qualifiers: Esophagitis presence: without esophagitis Qualified Code(s): K21.9 - Gastro-esophageal reflux disease without esophagitis Plan: Avoid the foods that causes that usually spicy foods, tomato products, juices, coffee, soda and foods that your sensitive to. After eating do not lie down, allow 3-4 hours before in lie down. And keep the head of bed above 30 degrees to avoid the acid from going up. (6) Obesity: Code(s): E66.9 - Obesity, unspecified Category: Medical Qualifiers: Obesity type: due to excess calories Obesity classification: adult class 3 (BMI >= 40) Serious obesity comorbidity presence: with serious comorbidity Body mass index: BMI 40.0-44.9 Qualified Code(s): E66.813 - Obesity, class 3; E66.01 - Morbid (severe) obesity due to excess calories; Z68.41 - Body mass index [BMI] 40.0-44.9, adult Plan: Diet and exercise . discussed with the patient ways to go about helping with the weight. Discussed about fluid intake water, eating healthy and keeping her moving. (7) Personal history of nicotine dependence: Comment: (former smoker - onset 17yo, 1ppd x 35yrs, 35pyh, quit 10/2021) Code(s): Z87.891 - Personal history of nicotine dependence Category: Medical Plan: Patient is on the lung cancer screening program April 2024 CT scan
== END 2024-06-26 13:56 | disposition home or self-care (01) ==
LOC: HO.HMCH 13:16
PROVIDERS: PCP Internal Medicine; Visit Provider Internal Medicine
DX: I12.9 Hypertensive chronic kidney disease with stage 1 through stage 4 chronic kidney disease, or unspecified chronic kidney disease (principal); N18.31 Chronic kidney disease, stage 3a; E66.813 Obesity, class 3; Z68.41 Body mass index [BMI] 40.0-44.9, adult; G47.33 Obstructive sleep apnea (adult) (pediatric); J45.20 Mild intermittent asthma, uncomplicated; K21.9 Gastro-esophageal reflux disease without esophagitis; Z87.891 Personal history of nicotine dependence

== ENCOUNTER → 2024-06-26 13:15 | Outpatient (BNVA) | payer MEDICARE, MEDICAID, SELFPAY | PROVIDERS: PCP Internal Medicine; Visit Provider Internal Medicine | DX: G47.33 Obstructive sleep apnea (adult) (pediatric) (principal); I12.9 Hypertensive chronic kidney disease with stage 1 through stage 4 chronic kidney disease, or unspecified chronic kidney disease; N18.31 Chronic kidney disease, stage 3a; J45.20 Mild intermittent asthma, uncomplicated; K21.9 Gastro-esophageal reflux disease without esophagitis; E66.01 Morbid (severe) obesity due to excess calories; Z68.41 Body mass index [BMI] 40.0-44.9, adult; Z87.891 Personal history of nicotine dependence | CPT/HCPCS: 99212 ==

== ENCOUNTER 2024-09-26 13:18 | Outpatient (AMB) | payer MEDICARE, MEDICAID, SELFPAY ==
--- NOTE | 2024-09-26 13:24 | MHC.PC.OV ---
Vital Signs 09/26/24 13:25 Height 5 ft 8 in Weight 266 lb BMI 40.4 BP 122/78 Blood Pressure Location Lt brachial Position Sitting Pulse 82 Pulse Source Pulse Oximeter Pulse Oximetry (%) 97 Oxygen Delivery Method Room Air Intake Visit Reasons: HTN, THAO Allergies surgical tape Allergy (Severe, Uncoded 09/26/24 13:25) severe rash Tobacco use date assessed: 09/26/24 Dental Screening Dental Screen Date: 09/26/24 Did you have a dental visit in the last 12 months?: No Did you have a dental problem in the last 6 months where you did not have access to dental care?: No Was dental information given to patient?: Patient has dentist HPI HTN, THAO HPI Details The patient is a 54-year-old female presenting with hypertension management. She has been on Lisinopril, which she has been taking as prescribed since refilling in July, with a 90-day supply. The patient requests another refill at this visit. Her blood pressure has been stable, and she attributes its control, in part, to smoking cessation since October 2020. In addition to hypertension, the patient mentions a history of sleep apnea; however, she declined the use of CPAP therapy due to discomfort and reports frequent awakenings due to apnea episodes. A prior sleep study deemed surgical intervention unnecessary. The patient recently stopped vitamin B1 supplementation but continues to take vitamin D monthly, currently out of the latter and requesting a refill. She received a flu vaccination prior and is aware of ongoing flu, COVID-19, and RSV concerns. She reports minimal social activity and driving challenges. [facility] Medical History (Updated 09/26/24 @ 13:39 by Tio Conway MD) Hypersomnia Difficulty sleeping Vision loss, bilateral History of hepatitis C Alcohol abuse Chronic kidney disease, stage III (moderate) Hypertension Hypercholesterolemia Asthma Personal history of nicotine dependence GERD (gastroesophageal reflux disease) Tubular adenoma of colon Tubulovillous adenoma Vitamin D deficiency Obesity Laceration of right breast Breast density Hematoma Surgical History History of colonoscopy History of cholecystectomy History of excision of lesion History of tracheostomy History of ventriculoperitoneal shunting Family History Father HTN (hypertension) CVD (cardiovascular disease) Myocardial infarct Substance abuse Mother Skin cancer Cancer Maternal Grandmother Breast cancer Brother No problems noted. Sister No problems noted. Other Mental health disorder Social History Household Members: None Housing: Apartment Are you a primary child care center assistant director to a significant other at home: No Do you presently have visiting nurse or other home services: No Alcohol intake: current Alcohol intake frequency: a few times a week Alcohol type: beer Comment: 6 days a week 67 drinks Patient Tobacco Use Status: Former Tobacco user Tobacco use type: Cigarette Years Smoked: (onset 17yo, 1ppd x 35yrs, 35pyh, quit 10/2021) e-Cigarette/Vaping Use: Never Used Second Hand Smoke Exposure: No service: No Current occupational status: disabled Cognitive needs: No Hearing needs: No Vision needs: Yes Questionnaire PHQ-9 Over the last 2 weeks, how often have you been bothered by any of the following problems? 1. Little interest or pleasure in doing things: not at all 2. Feeling down, depressed, or hopeless: not at all 3. Trouble falling or staying asleep, or sleeping too much: not at all 4. Feeling tired or having little energy: not at all 5. Poor appetite or overeating: not at all 6. Feeling bad about yourself - or that you are a failure or have let yourself or your family down: not at all 7. Trouble concentrating on things, such as reading the newspaper or watching television: not at all 8. Moving or speaking so slowly that other people could have noticed. Or the opposite - being so fidgety or restless that you have been moving around a lot more than usual: not at all 9. Thoughts that you would be better off or of hurting yourself in some way: not at all Total score: 0 Depression Screening Interpretation: Negative Depression Screening Done: Yes Source: Developed by Drs. Jose Coronel, Genia aHnson, Rudy Tucker and colleagues, with an educational radha from [employer]. Thrive Questionnaire Date Thrive assessed: 09/26/24 I am a: Patient What is your living situation today?: I have a steady place to live Within the past 12 months, did the food you bought not last and you didn't have the money to get more?: Never true Within the past 12 months, did you worry whether your food would run out before you got money to buy more?: Never true Do you have trouble paying for medicines?: No Do you have trouble getting transportation to medical appointments?: No Do you have trouble paying your heating and electricity bill?: No Do you have trouble taking care of your child, family member or friend?: No Do you have trouble with day-to-day activities such as bathing, preparing meals, shopping, managing finances, etc.?: No Are you currently unemployed and looking for a job?: No Are you interested in more education?: No Currently or been in a relationship where the following occur: No concerns reported THRIVE Score: 0 AUDIT C Alcohol Use Questionnaire (AUDIT-C) 2. How many drinks containing alcohol do you have on a typical day when you are drinking?: 5 or 6 3. How often do you have six or more drinks on one occasion?: Weekly Total Score: 5 DYLON-7 AMB Questionnaire DYLON-7 Date DYLON - 7 assessed: 09/26/24 Feeling nervous, anxious, or on edge: 0 = Not at all Not being able to stop or control worryin = Not at all Worrying too much about different things: 0 = Not at all Trouble relaxin = Not at all Being so restless that it is hard to sit still: 0 = Not at all Becoming easily annoyed or irritable: 0 = Not at all Feeling afraid as if something awful might happen: 0 = Not at all Total DYLON-7 score (0-4 normal; 5-9 mild; 10-14 moderate; 15-21 severe): 0 Source: Developed by Drs. Jose Coronel, Genia Hanson, Rudy Tucker and colleagues, with an educational radha from [employer]. Physical exam (Primary Care) Vital Signs: Last Vital Signs Pulse 82 09/26/24 13:25 BP 122/78 09/26/24 13:25 Pulse Ox 97 09/26/24 13:25 Oxygen Delivery Method Room Air 09/26/24 13:25 BMI result Body Mass Index 40.4 Tobacco/Smoking Status: Tobacco use Status Tobacco use date assessed 09/26/24 09/26/24 13:29 Patient Tobacco Use Status Former Tobacco user 09/26/24 13:29 Tobacco use type Cigarette 09/26/24 13:29 e-Cigarette/Vaping Use Never Used 09/26/24 13:29 PHQ-9: PHQ-9 Score PHQ-9: Total score 0 09/26/24 13:29 Depression Screening Interpretation: Negative Thrive Assessment: Date of Thrive Assessment Date Thrive assessed 09/26/24 09/26/24 13:29 Currently or been in a relationship where the following occur: No concerns reported Const General: alert; No acute distress Eyes Conjunctivae: conjunctivae normal Resp Auscultation: clear to auscultation bilaterally Cardio Rate: regular rate Rhythm: regular rhythm GI Inspection: Yes normal to inspection Extrem General: Yes normal to inspection and No edema Coding Level of Care Code Est Pt Level 4 (01241) Diagnoses Personal history of nicotine dependence Z87.891 Class 3 severe obesity due to excess calories with serious comorbidity and body mass index (BMI) of 40.0 to 44.9 in adult E66.813; E66.01; Z68.41 Obesity type: due to excess calories Obesity classification: adult class 3 (BMI >= 40) Serious obesity comorbidity presence: with serious comorbidity Body mass index: BMI 40.0-44.9 Gastroesophageal reflux disease without esophagitis K21.9 Esophagitis presence: without esophagitis Hypercholesterolemia E78.00 Mild intermittent asthma without complication J45.20 Asthma severity: mild Asthma persistence: intermittent Asthma complication type: uncomplicated Essential hypertension I10 Hypertension type: essential hypertension Stage 3a chronic kidney disease N18.31 Chronic kidney disease stage 3 subtype: stage 3a (GFR 45-59) Assessment & Plan Assessment & Plan (1) Personal history of nicotine dependence: Comment: (former smoker - onset 17yo, 1ppd x 35yrs, 35pyh, quit 10/2021) Code(s): Z87.891 - Personal history of nicotine dependence Category: Medical Plan: Quit 2021 (2) Obesity: Code(s): E66.9 - Obesity, unspecified Category: Medical Qualifiers: Obesity type: due to excess calories Obesity classification: adult class 3 (BMI >= 40) Serious obesity comorbidity presence: with serious comorbidity Body mass index: BMI 40.0-44.9 Qualified Code(s): E66.813 - Obesity, class 3; E66.01 - Morbid (severe) obesity due to excess calories; Z68.41 - Body mass index [BMI] 40.0-44.9, adult Plan: losing weight (3) GERD (gastroesophageal reflux disease): Code(s): K21.9 - Gastro-esophageal reflux disease without esophagitis Category: Medical Qualifiers: Esophagitis presence: without esophagitis Qualified Code(s): K21.9 - Gastro-esophageal reflux disease without esophagitis (4) Hypercholesterolemia: Code(s): E78.00 - Pure hypercholesterolemia, unspecified Category: Medical (5) Asthma: Comment: no inhaler Code(s): J45.909 - Unspecified asthma, uncomplicated Category: Medical Qualifiers: Asthma severity: mild Asthma persistence: intermittent Asthma complication type: uncomplicated Qualified Code(s): J45.20 - Mild intermittent asthma, uncomplicated (6) Hypertension: Code(s): I10 - Essential (primary) hypertension Category: Medical Qualifiers: Hypertension type: essential hypertension Qualified Code(s): I10 - Essential (primary) hypertension (7) Chronic kidney disease, stage III (moderate): Code(s): N18.30 - Chronic kidney disease, stage 3 unspecified Category: Medical Qualifiers: Chronic kidney disease stage 3 subtype: stage 3a (GFR 45-59) Qualified Code(s): N18.31 - Chronic kidney disease, stage 3a Plan - Refill prescription for Lisinopril for essential hypertension and continue monitoring blood pressure levels. - Discussed reasons for and reinforced importance of CPAP therapy compliance for sleep apnea management. - Refill prescription for vitamin D supplementation to address deficiency and continue monitoring. - Continuation of smoking cessation efforts acknowledged with encouragement, given the positive impact on cardiovascular health. - Discussed the importance of flu vaccination and continued vigilance against respiratory viruses. Orders: Orders Lipid Panel 3 Months E78.00 - Pure hypercholesterolemia, unspecified, K21.9 - Gastro-esophageal reflux disease without esophagitis Vitamin B12 and Folate 3 Months K21.9 - Gastro-esophageal reflux disease without esophagitis Vitamin D 25-OH Total 3 Months K21.9 - Gastro-esophageal reflux disease without esophagitis Complete Blood Count Auto Diff 3 Months K21.9 - Gastro-esophageal reflux disease without esophagitis Comprehensive Met. Panel 3 Months K21.9 - Gastro-esophageal reflux disease without esophagitis Free T4 (Free Thyroxine) 3 Months K21.9 - Gastro-esophageal reflux disease without esophagitis Thyroid Stimulating Hormone 3 Months K21.9 - Gastro-esophageal reflux disease without esophagitis Hemoglobin A1c 3 Months K21.9 - Gastro-esophageal reflux disease without esophagitis Medications: Refilled ergocalciferol (vitamin D2) 1,250 mcg orally once per month 3 caps 3RF metronidazole 0.75% (MetroCream) 1 appl topical BEDTIME 45 grams 3RF L71.9 - Rosacea, unspecified
[2024-09-26 13:25] VITALS: BP 122/78; PULSE 82; O2SAT 97; BMI 40.4
--- OUTSIDE RECORDS SUMMARY | 2024-09-26 14:16 | XMS_ITS | Clinical Summary ---
Author Organization [facility] Facility Address [address] [address] Care Team Providers Care Warehouse Hand Name Role Phone Tio Conway MD Primary Care Provider [phone] Allergies No known active allergies Medications lisinopril 10 MG tablet Take 1 tablet by mouth 1 (one) time each day Active ibuprofen (Advil) 200 MG tablet as needed Active famotidine (Pepcid) 20 MG tablet Take 1 tablet by mouth in the morning and 1 tablet in the evening. Active cholecalciferol (VITAMIN D-3) 25 MCG (1000 UT) tablet Take 1 tablet by mouth 1 (one) time each day 09/29/2018 Active Thiamine HCl (vitamin B-1) 50 MG tablet Take 50 mg by mouth 1 (one) time each day 05/24/2023 Active ergocalciferol 1.25 MG (41710 UT) capsule Take 1 capsule (50,000 Units total) by mouth every 30 (thirty) days 90 capsule 2 06/03/2023 Active Active Problems Problem Noted Date Diagnosed Date Stage 3b chronic kidney disease 06/03/2023 Renal osteodystrophy 06/03/2023 Renal insufficiency 06/02/2023 06/02/2023 Hypertensive disorder 06/02/2023 06/02/2023 Family History Medical History Relation Comments Heart disease Father CVD Hypertension Father Stroke Father Cancer Mother Relation Status Comments Father Mother Alive Social History Tobacco Use Types Packs/Day Years Used Date Smoking Tobacco: Former Cigarettes Smokeless Tobacco: Former Tobacco Cessation:Counseling Given: Not Answered Alcohol Use Standard Drinks/Week Comments Yes 0 (1 standard drink = 0.6 oz pure alcohol) Alcoholic Drinks/day: 3 or more drinks per day Comments Unknown Sex and Gender Information Value Date Recorded Sex Assigned at Not on file Legal Sex Female 4:53 PM EST Gender Identity Not on file Sexual Orientation Not on file Last Filed Vital Signs Vital Sign Reading Time Taken Comments Blood Pressure 138/64 06/03/2023 3:42 PM EDT Pulse 77 06/03/2023 3:42 PM EDT Temperature - - Respiratory Rate - - Oxygen Saturation 98% 06/03/2023 3:42 PM EDT Inhaled Oxygen Concentration - - Weight 109 kg (241 lb) 11/03/2019 12:00 PM EST Height 172.7 cm (5' 8 ) 11/03/2019 12:00 PM EST Body Mass Index 36.64 11/03/2019 12:00 PM EST Plan of Treatment Health Maintenance Due Date Last Done Comments Breast Cancer Screening 1969 Pneumococcal Vaccine: Pediat rics (0 to 5 Years) and At-Risk Patients (6 to 64 Years) (1 of 2 - PCV) 1975 Hepatitis B Vaccine (1 of 3 - 19+ 3-dose series) 01/30 Colorectal Cancer Screening: Annual FOBT 2018 Colorectal Cancer Screening: Colonoscopy 2018 Colorectal Cancer Screening: Sigmoidoscopy 2018 Influenza Vaccine (#1) 2024 Insurance [employer] [place] Care Teams Warehouse Hand Relationship Specialty Start Date End Date Tio Conway MD [facility] [address] [place], [place] PCP - General 09/09/20
== END 2024-09-26 13:47 | disposition home or self-care (01) ==
PROVIDERS: PCP Internal Medicine; Visit Provider Internal Medicine
DX: I12.9 Hypertensive chronic kidney disease with stage 1 through stage 4 chronic kidney disease, or unspecified chronic kidney disease (principal); E66.01 Morbid (severe) obesity due to excess calories; Z68.41 Body mass index [BMI] 40.0-44.9, adult; N18.31 Chronic kidney disease, stage 3a; K21.9 Gastro-esophageal reflux disease without esophagitis; Z87.891 Personal history of nicotine dependence; E78.00 Pure hypercholesterolemia, unspecified; J45.20 Mild intermittent asthma, uncomplicated

== ENCOUNTER → 2024-09-26 13:18 | Outpatient (BNVA) | payer MEDICARE, MEDICAID, SELFPAY | PROVIDERS: PCP Internal Medicine; Visit Provider Internal Medicine | DX: G47.30 Sleep apnea, unspecified (principal); E66.813 Obesity, class 3; E66.01 Morbid (severe) obesity due to excess calories; K21.9 Gastro-esophageal reflux disease without esophagitis; E78.00 Pure hypercholesterolemia, unspecified; J45.20 Mild intermittent asthma, uncomplicated; I12.9 Hypertensive chronic kidney disease with stage 1 through stage 4 chronic kidney disease, or unspecified chronic kidney disease; N18.31 Chronic kidney disease, stage 3a; L71.9 Rosacea, unspecified; Z87.891 Personal history of nicotine dependence; Z68.41 Body mass index [BMI] 40.0-44.9, adult | CPT/HCPCS: 36415; 80048; 96127; 99212 ==

== ENCOUNTER 2024-09-26 13:54 | Outpatient (REF) | payer MEDICARE, MEDICAID, SELFPAY ==
--- OUTSIDE RECORDS SUMMARY | 2024-09-26 14:46 | XMS_ITS | Clinical Summary ---
Author Organization [facility] Facility Address [address] [place] [address] [address] Care Team Providers Care Recovery Advocate Name Role Phone Tio Conway MD Primary Care Provider [phone] Allergies No known active allergies Medications lisinopril [...] each day 05/24/2023 Active ergocalciferol 1.25 MG (67581 UT) capsule Take 1 capsule (50,000 Units [...] [place] Care Teams Recovery Advocate Relationship Specialty Start Date End Date Tio Conway MD [facility] INTER[facility] [address] [place], [place] PCP - General 09/09/20
[2024-09-26 15:53] LABS: Anion Gap 14 (12-20); Blood Urea Nitrogen 17 mg/dL (9-16); Calcium 9.7 mg/dL (8.4-10.2); Carbon Dioxide 22 mmol/L (22-29); Chloride 105 mmol/L (96-108); Estimated Glomerular Filt Rate 46; Glucose Random 84 mg/dL (60-115); Potassium 4.3 mmol/L (3.3-5.1); Sodium 137 mmol/L (135-145)
== END 2024-09-26 13:55 | disposition home or self-care (01) ==
LOC: HO.LAB 13:54
PROVIDERS: PCP Internal Medicine; Visit Provider Internal Medicine Hypertension Specialist
DX: Z13.89 Encounter for screening for other disorder (principal)
CPT/HCPCS: 36415; 80048

== ENCOUNTER 2024-10-10 13:14 | Outpatient (REF) | payer MEDICARE, MEDICAID, SELFPAY ==
[2024-10-10 14:15] LABS: MANUAL DIFF FLAG NO
--- OUTSIDE RECORDS SUMMARY | 2024-10-10 14:22 | XMS_ITS | Clinical Summary ---
Author Organization [facility] Facility Address [address] [address] Care Team Providers Care Microbiology Technologist Name Role Phone Tio Conway MD Primary Care Provider [phone] Allergies No known active allergies Medications lisinopril [...] each day 05/24/2023 Active ergocalciferol 1.25 MG (67568 UT) capsule Take 1 capsule (50,000 Units [...] [place] Care Teams Microbiology Technologist Relationship Specialty Start Date End Date Tio Conway MD [facility] INTER[facility] [address] [place], [place] PCP - General 09/09/20
[2024-10-10 15:56] LABS: Basophils Percent Auto 0.4 % (0-2); Eosinophils Absolute Auto 0.3 X10*3/uL (0.0-0.4); Eosinophils Percent Auto 5.4 % (0-4); Hematocrit 38.4 % (37.0-47.0); Hemoglobin 12.8 g/dl (12.0-16.0); Imm Gran Abs Auto 0.01 X10*3/uL (0.00-0.03); Imm Gran Pct Auto 0.2 % (0.0-0.4); Lymphocytes Absolute Auto 1.8 X10*3/uL (1.2-4.9); Lymphocytes Percent Auto 35.3 % (20-40); Mean Corpuscular HGB Conc 33.3 g/dl (31.0-35.0); Mean Corpuscular Hemoglobin 30.3 pg (27.0-33.0); Mean Platelet Volume 9.8 fL (9.4-12.3); Monocytes Absolute Auto 0.3 X10*3/uL (0.1-1.2); Monocytes Percent Auto 6.5 % (2-11); Neutrophils Absolute Auto 2.7 x10*3/uL (2.0-8.3); Neutrophils Percent Auto 52.2 % (45-73); Platelet Count 238 X10*3/uL (160-400); Red Blood Count 4.22 X10*6/uL (4.20-5.50); Red Cell Distribution Width 13.3 % (11.0-16.0); White Blood Count 5.2 X10*3/uL (4.8-10.8)
[2024-10-10 16:11] LABS: Estimated Average Glucose 105 mg/dL; Hemoglobin A1C 111.8548 umol/L; Hemoglobin A1c % 5.3 % (<6.0); Total Hemoglobin (HGBA1C) 3261.9253 umol/L
[2024-10-10 16:27] LABS: Folate 6.4 ng/mL (> or = 4.0); Vitamin B12 1435 pg/mL (200-900)
[2024-10-10 18:00] LABS: Alanine Aminotransferase 23 U/L (0-31); Albumin Level 4.2 g/dL (3.5-5.0); Alkaline Phosphatase 102 U/L (39-117); Anion Gap 14 (12-20); Aspartate Amino Transferase 28 U/L (5-31); Bilirubin Total 0.4 mg/dL (0.0-1.0); Blood Urea Nitrogen 20 mg/dL (9-16); Calcium 9.4 mg/dL (8.4-10.2); Carbon Dioxide 19 mmol/L (22-29); Chloride 108 mmol/L (96-108); Cholesterol 193 mg/dL (<200); Estimated Glomerular Filt Rate 41; Glucose Random 83 mg/dL (60-115); HDL Cholesterol 50 mg/dL (>40); LDL Cholesterol Calculated 108 mg/dL (<100); Sodium 136 mmol/L (135-145); Total Protein 8.1 g/dL (6.5-8.0); Triglycerides 178 mg/dL (<150)
[2024-10-10 18:19] LABS: Thyroid Stimulating Hormone 1.43 uIU/mL (0.32-4.0); Vitamin D 25-OH Total 46.7 ng/mL (>30)
== END 2024-10-10 13:15 | disposition home or self-care (01) ==
LOC: HO.LAB 13:14
PROVIDERS: PCP Internal Medicine; Visit Provider Internal Medicine
DX: K21.9 Gastro-esophageal reflux disease without esophagitis (principal); E78.00 Pure hypercholesterolemia, unspecified; Z13.1 Encounter for screening for diabetes mellitus
CPT/HCPCS: 36415; 80053; 80061; 82306; 82607; 82746; 83036; 84439; 84443; 85025

== ENCOUNTER 2024-10-24 12:48 | Outpatient (AMB) | payer MEDICARE, MEDICAID, SELFPAY ==
--- NOTE | 2024-10-24 13:06 | HO.NEPHOV ---
Vital Signs 10/24/24 13:07 Height 5 ft 8 in Weight 263 lb BMI 40.0 BP 110/70 Blood Pressure Location Lt brachial Position Sitting Pulse 77 Pulse Source Pulse Oximeter Pulse Oximetry (%) 99 Oxygen Delivery Method Room Air Intake Visit Reasons: CKD/ Conf Senior Sales Operations Manager Required: No Accompanied by: Spouse Allergies surgical tape Allergy (Severe, Uncoded 09/26/24 13:25) severe rash Medication List - Last Reconciled 10/24/24 by Jeff Steward MD biotin 1 mg PO DAILY cyanocobalamin (vitamin B-12) 1,000 mcg PO DAILY ergocalciferol (vitamin D2) 1,250 mcg orally once per month famotidine 20 mg PO BID PRN lisinopril 10 mg PO DAILY metronidazole 0.75% (MetroCream) 1 appl topical BEDTIME mupirocin 2% 1 appl topical BID 7 days thiamine HCl (vitamin B1) 50 mg PO DAILY 90 days zinc 100 mg PO DAILY HPI Comments Details: 53-year-old woman with a history of hypertension mild CKD history of smoking and GERD. She is here for follow-up. She used to drink up to 12 cans of beer a day. She is now cut down to about 8 a day. No new complaints today. [facility] Medical History (Updated 09/26/24 @ 13:54 by Tio Conway MD) Personal history of nicotine dependence Hypersomnia Difficulty sleeping Vision loss, bilateral History of hepatitis C Alcohol abuse Chronic kidney disease, stage III (moderate) Hypertension Hypercholesterolemia Asthma GERD (gastroesophageal reflux disease) Tubular adenoma of colon Tubulovillous adenoma Vitamin D deficiency Obesity Laceration of right breast Breast density Hematoma Surgical History History of colonoscopy History of cholecystectomy History of excision of lesion History of tracheostomy History of ventriculoperitoneal shunting Family History Father HTN (hypertension) CVD (cardiovascular disease) Myocardial infarct Substance abuse Mother Skin cancer Cancer Maternal Grandmother Breast cancer Brother No problems noted. Sister No problems noted. Other Mental health disorder Social History Household Members: None Housing: Apartment Are you a primary rn wound care to a significant other at home: No Do you presently have visiting nurse or other home services: No Alcohol intake: current Alcohol intake frequency: a few times a week Alcohol type: beer Comment: 6 days a week 67 drinks Patient Tobacco Use Status: Former Tobacco user Tobacco use type: Cigarette Years Smoked: (onset 17yo, 1ppd x 35yrs, 35pyh, quit 10/2021) e-Cigarette/Vaping Use: Never Used Second Hand Smoke Exposure: No service: No Current occupational status: disabled Cognitive needs: No Hearing needs: No Vision needs: Yes Physical Exam Vital Signs: Last Vital Signs Pulse 77 10/24/24 13:07 BP 110/70 10/24/24 13:07 Pulse Ox 99 10/24/24 13:07 Oxygen Delivery Method Room Air 10/24/24 13:07 BMI result Body Mass Index 40.0 Awake. Comfortable. Neck is supple. Mucosa moist. Lungs bilateral scattered rhonchi. Heart S1-S2 heard no gallop. Abdomen soft. Extremities no edema. No involuntary movements. No myoclonus. Results Reviewed Nephrology Results: Hgb 12.8 g/dl (12.0-16.0) 10/10/24 WBC 5.2 X10*3/uL (4.8-10.8) 10/10/24 Plt Count 238 X10*3/uL (160-400) 10/10/24 Sodium 136 mmol/L (135-145) 10/10/24 Potassium 5.0 mmol/L (3.3-5.1) 10/10/24 Chloride 108 mmol/L (96-108) 10/10/24 Carbon Dioxide 19 mmol/L (22-29) L 10/10/24 BUN 20 mg/dL (9-16) H 10/10/24 Creatinine 1.34 mg/dL (0.5-1.4) 10/10/24 Calcium 9.4 mg/dL (8.4-10.2) 10/10/24 Assessment & Plan Assessment & Plan (1) Chronic kidney disease, stage III (moderate): Code(s): N18.30 - Chronic kidney disease, stage 3 unspecified Category: Medical Qualifiers: Chronic kidney disease stage 3 subtype: stage 3a (GFR 45-59) Qualified Code(s): N18.31 - Chronic kidney disease, stage 3a Plan Middle-aged man with hypertension and CKD. Serum creatinine was 1.5 mg/dL. 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 No evidence of obstruction. No reason to believe that she is any active glomerulonephritis or interstitial disease at this time. Urine sediments bland without any significant proteinuria Goal is to slow the progression of renal disease Blood pressure is well controlled No need for hydrochlorothiazide 12.5 mg Continue with same dose of lisinopril. Avoid nephrotoxic agents. We discussed smoking cessation. Encouraged her to cut back on alcohol intake. She needs weight loss Orders: Orders Basic Metabolic Panel 6 Months N18.31 - Chronic kidney disease, stage 3a Coding Level of Care Code Est Pt Level 4 (71621) Diagnoses Stage 3a chronic kidney disease N18.31 Chronic kidney disease stage 3 subtype: stage 3a (GFR 45-59)
[2024-10-24 13:07] VITALS: BP 110/70; PULSE 77; O2SAT 99; BMI 40.0
--- OUTSIDE RECORDS SUMMARY | 2024-10-24 15:34 | XMS_ITS | Clinical Summary ---
Author Organization [facility] Facility Address [address] [address] Care Team Providers Care Canary Raiser Name Role Phone Tio Conway MD Primary Care Provider [phone] Allergies No known active allergies Medications lisinopril [...] each day 05/24/2023 Active ergocalciferol 1.25 MG (58327 UT) capsule Take 1 capsule (50,000 Units [...] [place] Care Teams Canary Raiser Relationship Specialty Start Date End Date Tio Conway MD [facility] INTER[facility] [address] [place], [place] PCP - General 09/09/20
== END 2024-10-24 13:25 | disposition home or self-care (01) ==
PROVIDERS: PCP Internal Medicine; Visit Provider Internal Medicine Hypertension Specialist
DX: N18.31 Chronic kidney disease, stage 3a (principal)
CPT/HCPCS: 99214

== ENCOUNTER → 2024-10-24 12:48 | Outpatient (BNVA) | payer MEDICARE, MEDICAID, SELFPAY | PROVIDERS: PCP Internal Medicine; Visit Provider Internal Medicine Hypertension Specialist | DX: I12.9 Hypertensive chronic kidney disease with stage 1 through stage 4 chronic kidney disease, or unspecified chronic kidney disease (principal); N18.31 Chronic kidney disease, stage 3a | CPT/HCPCS: 99212 ==

== ENCOUNTER 2024-12-18 13:04 | Outpatient (AMB) | payer MEDICARE, MEDICAID, SELFPAY ==
--- OUTSIDE RECORDS SUMMARY | 2024-12-18 13:06 | XMS_ITS | Clinical Summary ---
Author Organization [facility] Facility Address [address] [address] Care Team Providers Care Cementer Machine Applicator Name Role Phone Tio Conway MD Primary Care Provider [phone] Allergies No known active allergies Medications lisinopril [...] each day 05/24/2023 Active ergocalciferol 1.25 MG (16790 UT) capsule Take 1 capsule (50,000 Units [...] Last Done Comments Breast Cancer Screening 1969 Hepatitis B Vaccine (1 of 3 - 19+ 3-dose series) 01/30 Pneumococcal Vaccine: 50+ Years (1 of 2 - PCV) 988 Colorectal Cancer Screening: Annual FOBT 2018 Colorectal Cancer Screening: Colonoscopy 2018 Colorectal Cancer Screening: Sigmoidoscopy 2018 Influenza Vaccine (Season Ended) 2025 Insurance [employer] [place] Care Teams Cementer Machine Applicator Relationship Specialty Start Date End Date Tio Conway MD [address] [place], [place] PCP - General 09/09/20
[2024-12-18 13:10] VITALS: BP 112/72; PULSE 80; TEMP 36.2; O2SAT 98; BMI 40.6
--- NOTE | 2024-12-18 13:10 | AM.OFFVISMDC ---
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 Accompanied by: Spouse Allergies surgical tape Allergy (Severe, Uncoded 12/18/24 13:24) severe rash Medication List - Last Reconciled 12/18/24 by Tio Conway MD cyanocobalamin (vitamin B-12) 1,000 mcg PO DAILY ergocalciferol (vitamin D2) 1,250 mcg orally once per month famotidine 20 mg PO BID PRN lisinopril 10 mg PO DAILY metronidazole 0.75% (MetroCream) 1 appl topical BEDTIME mupirocin 2% 1 appl topical BID 7 days thiamine HCl (vitamin B1) 50 mg PO DAILY 90 days zinc 100 mg PO DAILY FORMERLY [facility], [facility] Medical History (Updated 12/18/24 @ 13:25 by Tio Conway MD) Personal history of nicotine dependence Hypersomnia Difficulty sleeping Vision loss, bilateral History of hepatitis C Alcohol abuse Chronic kidney disease, stage III (moderate) Hypertension Hypercholesterolemia Asthma GERD (gastroesophageal reflux disease) Tubular adenoma of colon Tubulovillous adenoma Vitamin D deficiency Obesity Laceration of right breast Breast density Hematoma Surgical History History of colonoscopy History of cholecystectomy History of excision of lesion History of tracheostomy History of ventriculoperitoneal shunting Family History Father HTN (hypertension) CVD (cardiovascular disease) Myocardial infarct Substance abuse Mother Skin cancer Cancer Maternal Grandmother Breast cancer Brother No problems noted. Sister No problems noted. Other Mental health disorder Social History Household Members: None Housing: Apartment Are you a primary care aide to a significant other at home: No Do you presently have visiting nurse or other home services: No Alcohol intake: current Alcohol intake frequency: a few times a week Alcohol type: beer Comment: 6 days a week 67 drinks Patient Tobacco Use Status: Former Tobacco user Tobacco use type: Cigarette Years Smoked: (onset 17yo, 1ppd x 35yrs, 35pyh, quit 10/2021) e-Cigarette/Vaping Use: Never Used Second Hand Smoke Exposure: No service: No Current occupational status: disabled Cognitive needs: No Hearing needs: No Vision needs: Yes Questionnaire Medicare Wellness Checkup What [age] 65-69 What gender do you identify with?: female During the past 4 weeks, how much have you been bothered by emotional problems such as feeling anxious, depressed, irritable, sad or downhearted, and blue?: not at all During the past 4 weeks, has your physical & emotional health limited your social activities with family, friends, neighbors, or groups?: not at all During the past 4 weeks, how much bodily pain have you generally had?: no pain During the past 4 weeks, was someone available to help you if you needed & wanted help?: no, not at all During the past 4 weeks, what was the hardest physical activity you could do for at least 2 minutes?: very heavy Can you get to places out of walking distance without help? (For eg., can you travel alone on buses, taxis or drive your car?): Yes Can you go shopping for groceries or clothes without someone's help?: Yes Can you prepare your own meals?: Yes Can you do your housework without help?: Yes Because of any health problems, do you need the help of another person with your personal care needs such as eating, bathing, dressing or getting around the house?: No Can you handle your own money without help?: Yes During the past 4 weeks, how would you rate your health in general?: fair During the past 4 weeks how have things been going for you?: pretty well Are you having difficulties driving your car?: not applicable, I don't use a car Do you always fasten your seat belt when you are in a car?: yes, usually During past 4 weeks, have you been bothered by the following: never: Falling or dizzy when standing up, Sexual problems?, Trouble eating well?, Teeth or denture problems?, Problems using the telephone? and Tiredness or fatigue? Have you fallen 2 or more times in the past year?: No Are you afraid of falling?: Yes Are you a smoker?: no During the past 4 weeks, how many drinks of wine, beer, or other alcoholic beverages did you have?: 10 or more per week Do you exercise for about 20 minutes 3 or more times a week?: yes, most of the time Have you been given information to help with the following?: yes: Keeping track of your medications? and no: Hazards in your house that might hurt you? How often do you have trouble taking medicines the way you have been told to take them?: I always take medicine as prescribed How confident are you that you can control & manage most of your health problems?: very confident What is your race?: White PHQ-9 Over the last 2 weeks, how often have you been bothered by any of the following problems? 1. Little interest or pleasure in doing things: not at all 2. Feeling down, depressed, or hopeless: not at all 3. Trouble falling or staying asleep, or sleeping too much: nearly every day 4. Feeling tired or having little energy: not at all 5. Poor appetite or overeating: not at all 6. Feeling bad about yourself - or that you are a failure or have let yourself or your family down: not at all 7. Trouble concentrating on things, such as reading the newspaper or watching television: not at all 8. Moving or speaking so slowly that other people could have noticed. Or the opposite - being so fidgety or restless that you have been moving around a lot more than usual: not at all 9. Thoughts that you would be better off or of hurting yourself in some way: not at all Total score: 3 87047 - PHQ-9 Billing: Yes Source: Developed by Drs. Jose Coronel, Genia Hanson, Rudy Tucker and colleagues, with an educational radha from [employer]. Review of Systems Const Denies poor appetite and Denies weakness Eyes Denies no additional complaints ENT Reports Normal hearing present, Denies dizziness, Denies nasal congestion, Denies tinnitus and Denies sore throat Card Denies chest pain, Denies syncope, Denies rapid heart rate and Denies dyspnea Resp Denies cough and Denies dyspnea GI Denies change in stool character, Reports constipation, Denies diarrhea, Denies nausea and Denies vomiting Denies urinary frequency, Denies difficulty voiding and Denies dysuria Neuro Reports Normal hearing present, Denies confusion, Denies dizziness, Denies syncope and Denies weakness Psych Denies confusion Physical Exam Vital Signs: Last Vital Signs Temp 97.1 F 12/18/24 13:10 Pulse 80 12/18/24 13:10 BP 112/72 12/18/24 13:10 Pulse Ox 98 12/18/24 13:10 Oxygen Delivery Method Room Air 12/18/24 13:10 BMI result Body Mass Index 40.6 Const General: No confusion Orientation/consciousness: No confusion HEENT Head: Yes normocephalic Ears: external ears normal and TM's normal bilaterally Face and sinus: Yes normal facial exam Mouth: moist mucous membranes Throat: Yes tonsils normal Eyes Conjunctivae: conjunctivae normal Pupils: Equal, round and reactive pupils present and Pupil accommodation reflex normal Direct Ophthalmoscopy: normal light reflex Neck Neck: No lymphadenopathy Thyroid: Thyroid normal Chest Chest palpation & inspection: normal inspection of the chest Resp Effort & Inspection: normal respiratory effort and no audible wheezes Auscultation: clear to auscultation bilaterally, no crackles, no wheezes and lung sounds not diminished Cardio Rate: regular rate Rhythm: regular rhythm Peripheral pulses: radial pulses present and dorsalis pedis present GI Other: decline rectal exam Palpation (GI): no masses Auscultation: normal bowel sounds and normoactive bowel sounds Rectal Exam - Female: deferred Skin General skin exam: no rashes or lesions noted Rashes: no rashes Neuro General: No confusion Cranial nerves: Yes Equal, round and reactive pupils present and Yes Normal hearing present Cognition (Neuro): normal cognition Gait exam (Neuro): Normal gait present Motor exam (neuro): 5/5 motor strength present throughout Deep tendon reflexes (DTR's): Right brachioradialis reflex intensity grade: 2+, Left brachioradialis reflex intensity grade: 2+, Right patellar reflex intensity grade: 2+ and Left patellar reflex intensity grade: 2+ Extrem General: No edema Assessment & Plan Assessment & Plan (1) Annual wellness visit: Code(s): Z00.00 - Encounter for general adult medical examination without abnormal findings Plan: Patient is advised to eat healthy, keep well hydrated, keep active and have adequate sleep. (2) Chronic kidney disease, stage III (moderate): Code(s): N18.30 - Chronic kidney disease, stage 3 unspecified Qualifiers: Chronic kidney disease stage 3 subtype: stage 3a (GFR 45-59) Qualified Code(s): N18.31 - Chronic kidney disease, stage 3a Plan: Keep well hydrated hydrochlorothiazide taken off continue with lisinopril. Hypertensive nephrosclerosis (3) Hypertension: Code(s): I10 - Essential (primary) hypertension Qualifiers: Hypertension type: essential hypertension Qualified Code(s): I10 - Essential (primary) hypertension Plan: Continue with blood pressure medication. Decrease salt intake and exercise on lisinopril 10 mg once a day (4) Hypercholesterolemia: Code(s): E78.00 - Pure hypercholesterolemia, unspecified Plan: Avoid fried foods, chicken skin, eggs, butter margarine, pastries and meat. Be it pork or beef they have a lot of cholesterol LDL goal of less than 130 and triglyceride of less than 150 (5) GERD (gastroesophageal reflux disease): Code(s): K21.9 - Gastro-esophageal reflux disease without esophagitis Qualifiers: Esophagitis presence: without esophagitis Qualified Code(s): K21.9 - Gastro-esophageal reflux disease without esophagitis Plan: Avoid the foods that causes that usually spicy foods, tomato products, juices, coffee, soda and foods that your sensitive to. After eating do not lie down, allow 3-4 hours before in lie down. And keep the head of bed above 30 degrees to avoid the acid from going up. Decrease alcohol intake and continue to stop smoking. (6) Alcohol abuse: Code(s): F10.10 - Alcohol abuse, uncomplicated Plan: Patient is strongly advised to abstain (7) Morbid obesity: Code(s): E66.01 - Morbid (severe) obesity due to excess calories Plan: Diet and exercise (8) Personal history of nicotine dependence: Comment: (former smoker - onset 17yo, 1ppd x 35yrs, 35pyh, quit 10/2021) February 2024 Code(s): Z87.891 - Personal history of nicotine dependence Plan: Patient is enrolled in lung cancer screening program February 2024 last CAT scan Plan History of Present Illness The patient is a 54-year-old female presenting for an annual physical examination and mammogram scheduling. Her medical history reveals several chronic conditions, including obesity, tubular adenoma, Gastroesophageal Reflux Disease (GERD), asthma, essential hypertension, hypercholesterolemia, chronic kidney disease stage 3, peripheral vascular disease, and mild obstructive sleep apnea. The last colonoscopy noted a tubular adenoma, with diet and lifestyle influencing cholesterol management. Her GERD and asthma are longstanding, while her kidney disease is managed with regular nephrology consultations. The patient's response to sleep apnea treatment is suboptimal, complicated by discomfort with CPAP use. Recently, alcohol intake has been reduced. Health Maintenance - Last colonoscopy in September 2022; next due in three years - Annual mammogram scheduling in November - Enrolled in lung cancer screening program since November 2023 - Last CT scan of the chest in February 2024 - Pneumonia and shingles vaccinations up-to-date - Decreasing alcohol intake and abstaining from smoking - Advised maintaining a balanced diet to manage cholesterol levels - Regular hydration to support kidney function - Vitamin supplementation: Vitamin D, B12, and thiamine discussed Social History - Former alcohol use disorder with reported reduction in consumption - Family history includes breast cancer in grandmother and skin cancer in mother - No current tobacco use, considering past smoking history - Reports maintaining activity level through pricing consultant and increasing exercise during favorable weather Review of Systems - Cardiovascular: Reports no chest pain; - Respiratory: Reports symptoms of obstructive sleep apnea without CPAP use; Denies cough or dyspnea - Gastrointestinal: Reports GERD; Denies heartburn, nausea, or vomiting - Neurological: Denies headaches, reports waking up due to sleep apnea - Ear, Nose, Throat: Denies stuffiness or sneezing Physical Exam General: Cooperative, healthy appearing, comfortable, no acute distress and well developed Orientation: Patient oriented x3 Limitations: No limitations Head: Normal to inspection Ears: Hearing grossly normal bilaterally, a little bit of ear wax but not enough to be taken out Nose: Normal external nose present, no stuffiness or sneezing noted Face and sinus: Normal facial exam Eyes: Appearance normal, both eyes and all related structures, no vision problems besides glasses Neck: Normal visual inspection and Yes full ROM Respiratory: Normal respiratory effort and able to speak in complete sentences. Clear to auscultation bilaterally Cardiovascular: Regular rate and rhythm. Normal S1 and S2 GI: Normal to inspection. Soft to palpation and nontender Skin: No rashes or lesions noted Neuro: Patient oriented x3 Extremities: Normal to inspection, some swelling noted Results - Labs: Complete blood count normal; Electrolyte levels within normal limits; Renal function creatinine level at 1.34 mg/dL, GFR 41 mL/min; Normal glucose; Cholesterol LDL within goal <130 mg/dL, triglycerides 178 mg/dL; B12 slightly elevated - Tests: Last CT of the chest in February 2024 Plan 1. High triglycerides are addressed through dietary changes aiming for levels under 150 mg/dL. Emphasis on a balanced diet, smoking cessation, and reducing alcohol intake are crucial in preventing GERD exacerbations and improving cardiovascular health. A mammogram is due in November for cancer screening aligned with familial history risk factors. Maintaining exercise and hydration is stressed to help manage obesity and support renal health. Refusal of a rectal exam is respected; follow-up plans involve regular monitoring of hypercholesterolemia and triglyceride levels.: Patient was informed and verbally consented to the use of an ambient scribe for clinic note documentation during this visit. Discussion Notes A comprehensive discussion regarding ongoing management of essential hypertension involved continuing lisinopril without hydrochlorothiazide. Alcohol reduction decreases GERD symptoms and potential cardiovascular risks. Triglyceride levels addressed through diet, aiming for maintenance under 150 mg/dL. Probiotics and CPAP discomfort were challenges for sleep apnea management. Follow-up with mammography accounts for family breast cancer history, with nutritional counseling support for chronic conditions noted. The patient's preference against rectal screening respected; ongoing cholesterol and triglycerides follow-up remains vital. Patient Instructions - Continue taking lisinopril exactly as prescribed. - Make dietary changes to help reduce triglyceride levels. - Stay hydrated and increase water intake, target six to eight glasses daily. - Avoid alcohol and cigarette smoking completely. - Schedule and attend your mammogram appointment in November. - Engage in regular physical activity and exercise. - Monitor symptoms of GERD and adjust diet as needed. - Report any new or worsening symptoms to the healthcare team promptly. Medications: Refilled ergocalciferol (vitamin D2) 1,250 mcg orally once per month 3 caps 3RF Quality Reporting (2019) Depression/Bipolar (159/160/161/177) PHQ-9: Total score: 3 Coding Level of Care Code Medicare Subsequent (G0439) Diagnoses Annual wellness visit Z00.00 Stage 3a chronic kidney disease N18.31 Chronic kidney disease stage 3 subtype: stage 3a (GFR 45-59) Essential hypertension I10 Hypertension type: essential hypertension Hypercholesterolemia E78.00 Gastroesophageal reflux disease without esophagitis K21.9 Esophagitis presence: without esophagitis Alcohol abuse F10.10 Morbid obesity E66.01 Personal history of nicotine dependence Z87.891 Additional Codes PHQ-9 - 28046 - PHQ-9 Billing: Yes ([id number])
== END 2024-12-18 13:50 | disposition home or self-care (01) ==
LOC: HO.HMCH 13:05
PROVIDERS: PCP Internal Medicine; Visit Provider Internal Medicine
DX: Z00.00 Encounter for general adult medical examination without abnormal findings (principal); I12.9 Hypertensive chronic kidney disease with stage 1 through stage 4 chronic kidney disease, or unspecified chronic kidney disease; N18.31 Chronic kidney disease, stage 3a; E66.01 Morbid (severe) obesity due to excess calories; Z68.41 Body mass index [BMI] 40.0-44.9, adult; E78.00 Pure hypercholesterolemia, unspecified; K21.9 Gastro-esophageal reflux disease without esophagitis; F10.10 Alcohol abuse, uncomplicated; Z87.891 Personal history of nicotine dependence

== ENCOUNTER → 2024-12-18 13:04 | Outpatient (BNVA) | payer MEDICARE, MEDICAID, SELFPAY | PROVIDERS: PCP Internal Medicine; Visit Provider Internal Medicine | DX: Z00.00 Encounter for general adult medical examination without abnormal findings (principal); I12.9 Hypertensive chronic kidney disease with stage 1 through stage 4 chronic kidney disease, or unspecified chronic kidney disease; N18.31 Chronic kidney disease, stage 3a; E78.00 Pure hypercholesterolemia, unspecified; K21.9 Gastro-esophageal reflux disease without esophagitis; F10.10 Alcohol abuse, uncomplicated; E66.01 Morbid (severe) obesity due to excess calories; Z87.891 Personal history of nicotine dependence | CPT/HCPCS: 96127 ==

== ENCOUNTER 2025-04-09 13:51 | Outpatient (REF) | payer MEDICARE, MEDICAID, SELFPAY ==
--- OUTSIDE RECORDS SUMMARY | 2025-04-09 14:19 | XMS_ITS | Clinical Summary ---
Author Organization [facility] Facility Address [address] [address] Care Team Providers Care Supply Chain Technician Name Role Phone Tio Conway MD Primary Care Provider [phone] Allergies No known active allergies Medications lisinopril [...] each day 05/24/2023 Active ergocalciferol 1.25 MG (02687 UT) capsule Take 1 capsule (50,000 Units [...] Cancer Screening: Sigmoidoscopy 2018 Influenza Vaccine (#1) 2025 Insurance [employer] [place] Care Teams Supply Chain Technician Relationship Specialty Start Date End Date Tio Conway MD [address] [place], [place] PCP - General 09/09/20
[2025-04-09 15:44] LABS: Anion Gap 14 (12-20); Blood Urea Nitrogen 22 mg/dL (9-16); Calcium 9.3 mg/dL (8.4-10.2); Carbon Dioxide 21 mmol/L (22-29); Chloride 106 mmol/L (96-108); Estimated Glomerular Filt Rate 38; Potassium 5.1 mmol/L (3.3-5.1); Sodium 136 mmol/L (135-145)
== END 2025-04-09 13:52 | disposition home or self-care (01) ==
LOC: HO.LAB 13:51
PROVIDERS: PCP Internal Medicine; Visit Provider Internal Medicine Hypertension Specialist
DX: N18.31 Chronic kidney disease, stage 3a (principal)
CPT/HCPCS: 36415; 80048

== ENCOUNTER 2025-05-01 14:48 | Outpatient (REF) | payer MEDICARE, MEDICAID, SELFPAY ==
--- OUTSIDE RECORDS SUMMARY | 2025-05-01 16:02 | XMS_ITS | Clinical Summary ---
Author Organization [facility] Facility Address [address] [address] Care Team Providers Care Receiving Coordinator Name Role Phone Tio Conway MD Primary Care Provider [phone] Allergies No known active allergies Medications lisinopril [...] each day 05/24/2023 Active ergocalciferol 1.25 MG (60776 UT) capsule Take 1 capsule (50,000 Units [...] [place] [employer] [place] Care Teams Receiving Coordinator Relationship Specialty Start Date End Date Tio Cnoway MD [address] [place], [place] PCP - General 09/09/20
== END 2025-05-01 14:49 | disposition home or self-care (01) ==
LOC: HO.MAMMO 14:48
PROVIDERS: PCP Internal Medicine; Visit Provider Internal Medicine
DX: Z12.31 Encounter for screening mammogram for malignant neoplasm of breast (principal)
CPT/HCPCS: 77063; 77067

== ENCOUNTER → 2025-05-01 15:00 | Outpatient (BNV) | payer MEDICARE, MEDICAID, SELFPAY | PROVIDERS: PCP Internal Medicine; Visit Provider Internal Medicine | DX: Z12.31 Encounter for screening mammogram for malignant neoplasm of breast (principal) | CPT/HCPCS: 77063; 77067 ==

== ENCOUNTER 2025-05-31 14:08 | Outpatient (REF) | payer MEDICARE, MEDICAID, SELFPAY ==
--- NOTE | ~2025-05-31 | MM_ITS ---
EXAMINATION: MM DIAGNOSTIC DIGITAL BREAST TOMOSYNTHESIS, RIGHT Right limited ultrasound. CLINICAL INFORMATION: Call back from screening for focal asymmetry in the lower outer right breast middle depth. COMPARISON: Mammography: Priors on PACS. TECHNIQUE: Digital breast tomosynthesis is performed in both the craniocaudal and mediolateral oblique views along with computer-aided detection (CAD). Synthesized 2D images are generated from the tomosynthesis. FINDINGS: There are scattered areas of fibroglandular density. Focal asymmetry lower outer right breast middle depth partially effaces on additional imaging projections there is question architectural distortion. No suspicious calcifications or other abnormal findings. Targeted color Doppler ultrasound scanning from 6-10 o'clock demonstrates a hypoechoic oval circumscribed solid mass versus complicated cyst at 7:00 4 cm from the nipple measuring 5 x 2 x 5 mm this is incidental. Otherwise scanning from 6-10 o'clock demonstrates normal fibroglandular breast tissue. MM/MM tomosynthesis added views R IMPRESSION: Focal asymmetry in the lower outer breast middle depth with questioned distortion without sonographic correlate. Recommend stereotactic core needle biopsy at this time for confirmation. The findings and recommendations were discussed with patient the procedure be scheduled. Hypoechoic oval circumscribed solid mass at 7:00 4 cm from the nipple on ultrasound. Recommend 6 month follow-up for further evaluation of stability. ASSESSMENT: BI-RADS Category 4: Suspicious RECOMMENDATION: Biopsy recommended Results were discussed with the patient at time of visit. Electronically signed by: Juhi Gay DO 06/01/2025 08:48 AM EDT
--- OUTSIDE RECORDS SUMMARY | 2025-05-31 15:46 | XMS_ITS | Clinical Summary ---
Author Organization [facility] Facility Address [address] [address] Care Team Providers Care Business Technology Analyst Name Role Phone Tio Conway MD Primary Care Provider [phone] Allergies No known active allergies Medications lisinopril [...] each day 05/24/2023 Active ergocalciferol 1.25 MG (59744 UT) capsule Take 1 capsule (50,000 Units [...] [place] [employer] [place] Care Teams Business Technology Analyst Relationship Specialty Start Date End Date Tio Conway MD [address] [place], [place] PCP - General 09/09/20
== END 2025-05-31 14:09 | disposition home or self-care (01) ==
LOC: HO.MAMMO 14:08
PROVIDERS: PCP Internal Medicine; Visit Provider Internal Medicine
DX: N64.89 Other specified disorders of breast (principal)
CPT/HCPCS: 76642; 77061; 77065

== ENCOUNTER → 2025-05-31 14:30 | Outpatient (BNV) | payer MEDICARE, MEDICAID, SELFPAY | PROVIDERS: PCP Internal Medicine; Visit Provider Internal Medicine | DX: N63.15 Unspecified lump in the right breast, overlapping quadrants (principal); N64.89 Other specified disorders of breast | CPT/HCPCS: 76642; 77065; G0279 ==

== ENCOUNTER 2025-06-05 12:59 | Outpatient (REF) | payer MEDICARE, MEDICAID, SELFPAY ==
--- NOTE | ~2025-06-05 | CT_ITS ---
EXAMINATION: CT LOW-DOSE SCREENING CHEST WITHOUT CONTRAST CLINICAL INFORMATION: 55-year-old female, prior smoker, quit 3 years ago, 35 pack years. Lung cancer screening. COMPARISON: 03/24/2024. TECHNIQUE: Multidetector volumetric CT imaging of the chest is performed on a Siemens SOMATOM Definition scanner without contrast using low dose technique. Additional 2D coronal and sagittal reformatted images and axial 3D maximum intensity projection (MIP) images are generated on the CT workstation. This CT examination was performed using dose optimization techniques as appropriate, variously including the following: *Automated exposure control *Adjustment of mA and/or kV according to patient size (this includes techniques or standardized protocols for targeted exams where dose is matched to indication/reason for exam; i.e. extremities or head) *Use of iterative reconstruction technique FINDINGS: PULMONARY NODULES: There are no suspicious pulmonary nodules present. LUNGS: There is mild pulmonary emphysema. Lungs are well pneumatized. No abnormal opacities. No interstitial disease. Small airways appear normal. Central airways are patent. No effusions or pneumothorax. MEDIASTINUM: Partially imaged thyroid is essentially normal with a small macrocalcification in the inferior left pole. There is no lymphadenopathy or mass. Aorta is normal in caliber and course without aneurysm. Main pulmonary artery is normal in size. Heart size is normal. There is no pericardial effusion. There is a small type I hiatus hernia suspected. CORONARY ARTERY CALCIFICATION: None visualized on this study. CHEST WALL/AXILLA: No abnormal lymph nodes or masses. SILICA DRY PRESS HELPER shunt tubing noted coursing in the right anterior subcutaneous fat. UPPER ABDOMEN: There has been a cholecystectomy. Remainder of the imaged upper abdominal contents appear normal. OSSEOUS STRUCTURES: No lytic or blastic bone lesions. Normal appearance. CT/CT lung screening IMPRESSION: 1. No suspicious pulmonary nodules. 2. Mild pulmonary emphysema without active disease. ASSESSMENT: 1. Lung-RADS Category 1: Negative. There are no nodules or there are definitely benign nodules. 2. Lung-RADS Category S: None. RECOMMENDATION: Continued routine annual low-dose CT lung screening in 1 year is recommended. An order for CT CHEST LOW DOSE CANCER SCREENING ([id number]) can be placed. Electronically signed by: Jose Velazquez MD 06/05/2025 01:45 PM EDT
--- OUTSIDE RECORDS SUMMARY | 2025-06-05 15:53 | XMS_ITS | Clinical Summary ---
Author Organization [facility] Facility Address [address] [address] Care Team Providers Care Box Turner Name Role Phone Tio Conway MD Primary Care Provider [phone] Allergies No known active allergies Medications lisinopril [...] each day 05/24/2023 Active ergocalciferol 1.25 MG (23443 UT) capsule Take 1 capsule (50,000 Units [...] [place] [employer] [place] Care Teams Box Turner Relationship Specialty Start Date End Date Tio Conway MD [address] [place], [place] PCP - General 09/09/20
== END 2025-06-05 13:00 | disposition home or self-care (01) ==
LOC: HO.CT 12:59
PROVIDERS: PCP Internal Medicine; Visit Provider Physician Assistant Medical
DX: Z12.2 Encounter for screening for malignant neoplasm of respiratory organs (principal); Z87.891 Personal history of nicotine dependence
CPT/HCPCS: 71271

== ENCOUNTER → 2025-06-05 13:02 | Outpatient (BNV) | payer MEDICARE, MEDICAID, SELFPAY | PROVIDERS: PCP Internal Medicine; Visit Provider Radiology Diagnostic Radiology | DX: Z12.2 Encounter for screening for malignant neoplasm of respiratory organs (principal); Z87.891 Personal history of nicotine dependence | CPT/HCPCS: 71271 ==

== ENCOUNTER 2025-06-06 08:10 | Outpatient (AMB) | payer MEDICARE, MEDICAID, SELFPAY ==
[2025-06-06 08:19] VITALS: BMI 41.4
--- NOTE | 2025-06-06 08:19 | MHC.OFFVIS ---
Vital Signs 06/06/25 08:19 Height 5 ft 8 in Weight 272 lb BMI 41.4 Intake Visit Reasons: Stereo Bx Rt breast asymmetry Intake Note: This patient presents for an assessment for Stereotactic Biopsy right breast asymmetry. Pt c/o; reports no breast pain, reports no change in breast size or shape, reports no nipple discharge. 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 Accompanied by: Mother Allergies surgical tape Allergy (Severe, Uncoded 06/06/25 08:32) severe rash Medication List - Last Reconciled 06/06/25 by Michael Parnell MD cyanocobalamin (vitamin B-12) 1,000 mcg PO DAILY ergocalciferol (vitamin D2) 1,250 mcg orally once per month famotidine 20 mg PO BID PRN lisinopril 10 mg PO DAILY metronidazole 0.75% (MetroCream) 1 appl topical BEDTIME mupirocin 2% 1 appl topical BID 7 days thiamine HCl (vitamin B1) 50 mg PO DAILY 90 days zinc 100 mg PO DAILY HPI HPI Stereo Bx Rt breast asymmetry: Details: 51 year female referred for an abnormal mammogram of the right breast. She underwent a screening mammogram last week and this showed focal asymmetry in the lower outer right breast. She was brought in for diagnostic ultrasound and mammogram last week and this showed focal asymmetry again which was not seen on ultrasound. A stereotactic biopsy was recommended. She denies any palpable breast mass. 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 She apparently had a tracheostomy at that time. Her menarche was at age of 11. She had never been . She had menopause at the age of 46. She denies any strong family history of breast cancer. [facility] Medical History Abnormal mammogram of right breast Personal history of nicotine dependence Hypersomnia Difficulty sleeping Vision loss, bilateral History of hepatitis C Alcohol abuse Chronic kidney disease, stage III (moderate) Hypertension Hypercholesterolemia Asthma GERD (gastroesophageal reflux disease) Tubular adenoma of colon Tubulovillous adenoma Vitamin D deficiency Obesity Laceration of right breast Breast density Hematoma Surgical History History of colonoscopy History of cholecystectomy History of excision of lesion History of tracheostomy History of ventriculoperitoneal shunting Family History Father HTN (hypertension) CVD (cardiovascular disease) Myocardial infarct Substance abuse Mother Skin cancer Cancer Maternal Grandmother Breast cancer Brother No problems noted. Sister No problems noted. Other Mental health disorder Social History Household Members: None Housing: Apartment Are you a primary career advisor to a significant other at home: No Do you presently have visiting nurse or other home services: No Alcohol intake: current Alcohol intake frequency: a few times a week Alcohol type: beer Comment: 6 days a week 67 drinks Patient Tobacco Use Status: Former Tobacco user Tobacco use type: Cigarette Years Smoked: (onset 17yo, 1ppd x 35yrs, 35pyh, quit 10/2021) e-Cigarette/Vaping Use: Never Used Second Hand Smoke Exposure: No service: No Current occupational status: disabled Cognitive needs: No Hearing needs: No Vision needs: Yes Female Reproductive History Menstrual Age of Menarche: 11 Total pregnancies: 0 Review of Systems Const Denies chills and Denies fever(s) Card Denies chest pain, Denies dyspnea and Reports dyspnea on exertion Resp Denies cough, Denies dyspnea and Reports dyspnea on exertion GI Denies hematochezia and Denies change in bowel habits Denies hematuria Musc Denies back pain and Denies limited range of motion Neuro Denies focal weakness and Denies convulsions Psych Denies depression and Denies mood swings Physical Exam Vital Signs: BMI result Body Mass Index 41.4 Const Other: Morbidly obese General: comfortable and no acute distress Orientation/consciousness: patient oriented x3 Neck Neck: Yes no lymphadenopathy Chest Other: Very large pendulous breasts, unable to palpate any mass, no obvious axillary lymphadenopathy Resp Auscultation: clear to auscultation bilaterally Cardio Rhythm: regular rhythm GI Palpation (GI): Soft to palpation, nontender and no guarding Neuro General: patient oriented x3 Assessment & Plan Assessment & Plan (1) Abnormal mammogram of right breast: Code(s): R92.8 - Other abnormal and inconclusive findings on diagnostic imaging of breast Category: Medical Plan: She had this focal asymmetry in the right breast and a stereotactic biopsy was recommended by the radiologist. I explained to the technique of this procedure. I will see her in the office next week to discuss the path report She understands the plan well. Her mother was with her during the visit. Orders: Orders MM stereotactic biopsy RT 06/05/25 R92.8 - Other abnormal and inconclusive findings on diagnostic imaging of breast Coding Level of Care Code New Pt Level 3 (64164) Diagnoses Abnormal mammogram of right breast R92.8
== END 2025-06-06 08:51 | disposition home or self-care (01) ==
LOC: HO.HGS 08:10
PROVIDERS: PCP Internal Medicine; Visit Provider Surgery
DX: R92.8 Other abnormal and inconclusive findings on diagnostic imaging of breast (principal)
CPT/HCPCS: 99203

== ENCOUNTER → 2025-06-06 08:10 | Outpatient (BNVA) | payer MEDICARE, MEDICAID, SELFPAY | PROVIDERS: PCP Internal Medicine; Visit Provider Surgery | DX: R92.8 Other abnormal and inconclusive findings on diagnostic imaging of breast (principal); E66.01 Morbid (severe) obesity due to excess calories; Z68.41 Body mass index [BMI] 40.0-44.9, adult; Z87.891 Personal history of nicotine dependence; F10.10 Alcohol abuse, uncomplicated | CPT/HCPCS: 99202 ==

== ENCOUNTER 2025-06-07 08:48 | Outpatient (REF) | payer MEDICARE, MEDICAID, SELFPAY ==
--- NOTE | ~2025-06-07 | MM_ITS ---
EXAMINATION: STEREOTACTICALLY-GUIDED RIGHT BREAST BIOPSY CLINICAL INFORMATION: Right breast focal asymmetry in the lower outer breast. Here for stereotactic core needle biopsy. COMPARISON: [facility] on PACS. INFORMED CONSENT: After the details of the procedure, as well as the risks (including, but not limited to, bleeding, hematoma formation, and infection), benefits and alternatives (including doing nothing, short-interval follow up, and surgery) to the procedure were explained to the patient in detail and all of her questions were answered, informed written consent was obtained. TECHNIQUE/FINDINGS: A timeout was performed confirming patients name date of side and site of procedure. The lesion intended for biopsy was identified stereotactically and targeted. The skin of the right breast was then cleansed with sterile solution. Using stereotactic guidance, aseptic technique, and 1% lidocaine with and without epinephrine for local anesthesia, a total of 12 cores were obtained through the targeted area with a 9-gauge vacuum-assisted Eviva core biopsy device from a medial approach. Specimen radiography reveals the targeted calcifications in the sampled tissue. At the completion of tissue sampling, a single top hat-shaped metallic clip was deposited at the biopsy site. Adequate sampling was achieved. The postprocedure 2-view direct digital mammogram reveals the biopsy clip to be in the superior outer right breast unclear if the correct site was targeted and biopsied or and if this represents clip migration. Pending right breast pathology recommend repeat diagnostic mammogram in 4-8 weeks to determine if the correct area was biopsied and position of marker clip migration. The patient tolerated the procedure well and, after assuring adequate hemostasis, was discharged in good condition after reviewing postbiopsy breast care instructions. Final pathology results are pending. MM/MM stereotactic biopsy RT IMPRESSION: 1. Uncomplicated stereotactically-guided core biopsy of the right breast. The 2-view direct digital postprocedure mammogram reveals positioning of the biopsy clip to be located superior to the original asymmetry. 2. Final pathology results are pending. A separate report with final recommendations will be issued once these results are made available. 3. Note that the patient is recommended for a 6 month follow-up right breast ultrasound findings at this time. Electronically signed by: Juhi Gay DO 06/07/2025 11:24 AM EDT
[2025-06-07] MEDS: Lidocaine HCl 1 % 20 ML VIAL 4 ML SUBCUT (10:50)
[2025-06-07] MEDS: Lidocaine HCl 1%/Epi 1:100,000 10 ML VIAL 11 ML SUBCUT (10:53)
== END 2025-06-07 08:49 | disposition home or self-care (01) ==
LOC: HO.MAMMO 08:48
PROVIDERS: PCP Internal Medicine; Visit Provider Internal Medicine
DX: R92.8 Other abnormal and inconclusive findings on diagnostic imaging of breast (principal)
CPT/HCPCS: 19081; 88305; A4648; J2003; J2004

== ENCOUNTER → 2025-06-07 09:00 | Outpatient (BNV) | payer MEDICARE, MEDICAID, SELFPAY | PROVIDERS: PCP Internal Medicine; Visit Provider Internal Medicine | DX: R92.8 Other abnormal and inconclusive findings on diagnostic imaging of breast (principal) | CPT/HCPCS: 19081 ==

== ENCOUNTER 2025-06-14 14:31 | Outpatient (AMB) | payer MEDICARE, MEDICAID, SELFPAY ==
[2025-06-14 14:37] VITALS: BMI 41.5
--- NOTE | 2025-06-14 14:37 | A.OFFVIS_ITS ---
Vital Signs 06/14/25 14:37 Height 5 ft 8 in Weight 272 lb 14.105 oz BMI 41.5 Intake Visit Reasons: breast Bx results Intake Note: Patient is here for breast biopsy results. Pt c/o; no complaints. 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 Accompanied by: Mother Allergies surgical tape Allergy (Severe, Uncoded 06/14/25 14:42) severe rash Medication List - Last Reconciled 06/14/25 by Michael Parnell MD cyanocobalamin (vitamin B-12) 1,000 mcg PO DAILY ergocalciferol (vitamin D2) 1,250 mcg orally once per month famotidine 20 mg PO BID PRN lisinopril 10 mg PO DAILY metronidazole 0.75% (MetroCream) 1 appl topical BEDTIME mupirocin 2% 1 appl topical BID 7 days thiamine HCl (vitamin B1) 50 mg PO DAILY 90 days zinc 100 mg PO DAILY HPI HPI breast Bx results: Details: I had sent her for stereotactic biopsy of right breast for calcifications last 06/07/2025. She says she tolerated procedure well but she describes having a lot of bruising and swelling on the area since then. [facility] Medical History Abnormal mammogram of right breast Personal history of nicotine dependence Hypersomnia Difficulty sleeping Vision loss, bilateral History of hepatitis C Alcohol abuse Chronic kidney disease, stage III (moderate) Hypertension Hypercholesterolemia Asthma GERD (gastroesophageal reflux disease) Tubular adenoma of colon Tubulovillous adenoma Vitamin D deficiency Obesity Laceration of right breast Breast density Hematoma Surgical History History of colonoscopy History of cholecystectomy History of excision of lesion History of tracheostomy History of ventriculoperitoneal shunting Family History Father HTN (hypertension) CVD (cardiovascular disease) Myocardial infarct Substance abuse Mother Skin cancer Cancer Maternal Grandmother Breast cancer Brother No problems noted. Sister No problems noted. Other Mental health disorder Social History Household Members: None Housing: Apartment Are you a primary health care manager to a significant other at home: No Do you presently have visiting nurse or other home services: No Alcohol intake: current Alcohol intake frequency: a few times a week Alcohol type: beer Comment: 6 days a week 67 drinks Patient Tobacco Use Status: Former Tobacco user Tobacco use type: Cigarette Years Smoked: (onset 17yo, 1ppd x 35yrs, 35pyh, quit 10/2021) e-Cigarette/Vaping Use: Never Used Second Hand Smoke Exposure: No service: No Current occupational status: disabled Cognitive needs: No Hearing needs: No Vision needs: Yes Female Reproductive History Menstrual Age of Menarche: 11 Review of Systems Const Denies chills and Denies fever(s) Card Denies chest pain at rest and Denies dyspnea Resp Denies dyspnea Physical Exam Vital Signs: BMI result Body Mass Index 41.5 Const Other: Morbidly obese General: comfortable and no acute distress Chest Other: Large area of ecchymosis and edema on the lower part of the right breast from her previous stereotactic biopsy Resp Effort & Inspection: normal respiratory effort Cardio Rate: regular rate Assessment & Plan Assessment & Plan (1) Abnormal mammogram of right breast: Code(s): R92.8 - Other abnormal and inconclusive findings on diagnostic imaging of breast Category: Medical Plan: Status post retracted biopsy. Her path report shows benign tissue with fibrocystic changes, usual ductal hyperplasia, without atypia or malignancy. I explained to her the benign nature of this pathology She does have a large area of ecchymosis on the biopsy site so I have advised her on doing warm compresses to the area. I will see her again in the office in about 2 weeks to see how this is healing. She understands the plan well. Her family was with her during the visit. Coding Level of Care Code Est Pt Level 3 (88203) Diagnoses Abnormal mammogram of right breast R92.8
== END 2025-06-14 14:50 | disposition home or self-care (01) ==
LOC: HO.HGS 14:32
PROVIDERS: PCP Internal Medicine; Visit Provider Surgery
DX: R92.8 Other abnormal and inconclusive findings on diagnostic imaging of breast (principal)
CPT/HCPCS: 99213

== ENCOUNTER → 2025-06-14 14:31 | Outpatient (BNVA) | payer MEDICARE, MEDICAID, SELFPAY | PROVIDERS: PCP Internal Medicine; Visit Provider Surgery | DX: R92.8 Other abnormal and inconclusive findings on diagnostic imaging of breast (principal) | CPT/HCPCS: 99212 ==

== ENCOUNTER 2025-06-26 11:07 | Outpatient (AMB) | payer MEDICARE, MEDICAID, SELFPAY ==
[2025-06-26 11:14] VITALS: BP 108/64; PULSE 78; TEMP 36.1; O2SAT 98; BMI 40.1
--- NOTE | 2025-06-26 11:14 | A.OFFPC_ITS ---
Vital Signs 06/26/25 11:14 Height 5 ft 8 in Weight 264 lb BMI 40.1 BP 108/64 Blood Pressure Location Lt brachial Position Sitting Pulse 78 Pulse Source Pulse Oximeter Temp 97.0 F Temp Source Temporal Artery Scan Pulse Oximetry (%) 98 Oxygen Delivery Method Room Air Intake Visit Reasons: f/u Allergies surgical tape Allergy (Severe, Uncoded 06/26/25 11:19) severe rash Medication List - Last Reconciled 06/26/25 by Tio Conway MD cyanocobalamin (vitamin B-12) 1,000 mcg PO DAILY ergocalciferol (vitamin D2) 1,250 mcg orally once per month famotidine 20 mg PO BID PRN lisinopril 10 mg PO DAILY metronidazole 0.75% (MetroCream) 1 appl topical BEDTIME mupirocin 2% 1 appl topical BID 7 days thiamine HCl (vitamin B1) 50 mg PO DAILY 90 days zinc 100 mg PO DAILY Tobacco use date assessed: 06/26/25 Dental Screening Dental Screen Date: 06/26/25 Did you have a dental visit in the last 12 months?: Yes Did you have a dental problem in the last 6 months where you did not have access to dental care?: No Was dental information given to patient?: Patient has dentist [facility] Medical History Abnormal mammogram of right breast Personal history of nicotine dependence Hypersomnia Difficulty sleeping Vision loss, bilateral History of hepatitis C Alcohol abuse Chronic kidney disease, stage III (moderate) Hypertension Hypercholesterolemia Asthma GERD (gastroesophageal reflux disease) Tubular adenoma of colon Tubulovillous adenoma Vitamin D deficiency Obesity Laceration of right breast Breast density Hematoma Surgical History History of colonoscopy History of cholecystectomy History of excision of lesion History of tracheostomy History of ventriculoperitoneal shunting Family History Father HTN (hypertension) CVD (cardiovascular disease) Myocardial infarct Substance abuse Mother Skin cancer Cancer Maternal Grandmother Breast cancer Brother No problems noted. Sister No problems noted. Other Mental health disorder Social History Household Members: None Housing: Apartment Are you a primary hospice care consultant to a significant other at home: No Do you presently have visiting nurse or other home services: No Alcohol intake: current Alcohol intake frequency: a few times a week Alcohol type: beer Comment: 6 days a week 67 drinks Patient Tobacco Use Status: Former Tobacco user Tobacco use type: Cigarette Years Smoked: (onset 17yo, 1ppd x 35yrs, 35pyh, quit 10/2021) e-Cigarette/Vaping Use: Never Used Second Hand Smoke Exposure: No service: No Current occupational status: disabled Cognitive needs: No Hearing needs: No Vision needs: Yes Female Reproductive History Menstrual Age of Menarche: 11 Questionnaire PHQ-9 Over the last 2 weeks, how often have you been bothered by any of the following problems? 1. Little interest or pleasure in doing things: not at all 2. Feeling down, depressed, or hopeless: not at all 3. Trouble falling or staying asleep, or sleeping too much: nearly every day 4. Feeling tired or having little energy: not at all 5. Poor appetite or overeating: not at all 6. Feeling bad about yourself - or that you are a failure or have let yourself or your family down: not at all 7. Trouble concentrating on things, such as reading the newspaper or watching television: not at all 8. Moving or speaking so slowly that other people could have noticed. Or the opposite - being so fidgety or restless that you have been moving around a lot more than usual: not at all 9. Thoughts that you would be better off or of hurting yourself in some way: not at all Total score: 3 Source: Developed by Drs. Jose Coronel, Genia Hanson, Rudy Tucker and colleagues, with an educational radha from [employer]. Thrive Questionnaire Date Thrive assessed: 12/11/24 I am a: Patient What is your living situation today?: I have a steady place to live Within the past 12 months, did the food you bought not last and you didn't have the money to get more?: Sometimes True Within the past 12 months, did you worry whether your food would run out before you got money to buy more?: Never true Do you have trouble paying for medicines?: Yes Do you have trouble getting transportation to medical appointments?: No Do you have trouble paying your heating and electricity bill?: No Do you have trouble taking care of your child, family member or friend?: No Do you have trouble with day-to-day activities such as bathing, preparing meals, shopping, managing finances, etc.?: No Are you currently unemployed and looking for a job?: No Are you interested in more education?: No Please select the resources that you would like help with: None Currently or been in a relationship where the following occur: No concerns reported THRIVE Score: 1 AUDIT C Alcohol Use Questionnaire (AUDIT-C) 1. How often do you have a drink containing alcohol?: 4 or more times a week 2. How many drinks containing alcohol do you have on a typical day when you are drinking?: 5 or 6 3. How often do you have six or more drinks on one occasion?: Weekly Total Score: 9 DYLON-7 AMB Questionnaire DYLON-7 Date DYLON - 7 assessed: 09/26/24 Feeling nervous, anxious, or on edge: 0 = Not at all Not being able to stop or control worryin = Not at all Worrying too much about different things: 0 = Not at all Trouble relaxin = Not at all Being so restless that it is hard to sit still: 0 = Not at all Becoming easily annoyed or irritable: 0 = Not at all Feeling afraid as if something awful might happen: 0 = Not at all Total DYLON-7 score (0-4 normal; 5-9 mild; 10-14 moderate; 15-21 severe): 0 Source: Developed by Drs. Jose Coronel, Genia Hanson, Rudy Tucker and colleagues, with an educational radha from [employer]. Physical exam (Primary Care) Vital Signs: Last Vital Signs Temp 97.0 F 06/26/25 11:14 Pulse 78 06/26/25 11:14 BP 108/64 06/26/25 11:14 Pulse Ox 98 06/26/25 11:14 Oxygen Delivery Method Room Air 06/26/25 11:14 BMI result Body Mass Index 40.1 Tobacco/Smoking Status: Tobacco use Status Tobacco use date assessed 06/26/25 06/26/25 11:21 Patient Tobacco Use Status Former Tobacco user 06/26/25 11:21 Tobacco use type Cigarette 06/26/25 11:21 e-Cigarette/Vaping Use Never Used 06/26/25 11:21 PHQ-9: PHQ-9 Score PHQ-9: Total score 3 06/26/25 12:04 Thrive Assessment: Date of Thrive Assessment Date Thrive assessed 12/11/24 06/26/25 11:21 Currently or been in a relationship where the following occur: No concerns reported Const General: alert; No acute distress Eyes Conjunctivae: conjunctivae normal Resp Auscultation: clear to auscultation bilaterally Cardio Rate: regular rate Rhythm: regular rhythm GI Inspection: Yes normal to inspection Extrem General: Yes normal to inspection and No edema Coding Level of Care Code Est Pt Level 4 (85358) Complex EM visit Add On G2211 Diagnoses Essential hypertension I10 Hypertension type: essential hypertension Hypercholesterolemia E78.00 Peripheral vascular disease I73.9 Morbid obesity E66.01 Gastroesophageal reflux disease without esophagitis K21.9 Esophagitis presence: without esophagitis Stage 3a chronic kidney disease N18.31 Chronic kidney disease stage 3 subtype: stage 3a (GFR 45-59) Personal history of nicotine dependence Z87.891 Assessment & Plan Assessment & Plan (1) Hypertension: Code(s): I10 - Essential (primary) hypertension Category: Medical Qualifiers: Hypertension type: essential hypertension Qualified Code(s): I10 - Essential (primary) hypertension Plan: Continue with blood pressure medication. Decrease salt intake and exercise on lisinopril 10 mg once a day (2) Hypercholesterolemia: Code(s): E78.00 - Pure hypercholesterolemia, unspecified Category: Medical Plan: Avoid fried foods, chicken skin, eggs, butter margarine, pastries and meat. Be it pork or beef they have a lot of cholesterol LDL goal of less than 130 and triglyceride of less than 150. (3) Peripheral vascular disease: Code(s): I73.9 - Peripheral vascular disease, unspecified Category: Medical Plan: When sitting down elevate the legs, exercise, and support stockings (4) Morbid obesity: Code(s): E66.01 - Morbid (severe) obesity due to excess calories Category: Medical Plan: Diet and exercise (5) GERD (gastroesophageal reflux disease): Code(s): K21.9 - Gastro-esophageal reflux disease without esophagitis Category: Medical Qualifiers: Esophagitis presence: without esophagitis Qualified Code(s): K21.9 - Gastro-esophageal reflux disease without esophagitis Plan: Avoid the foods that causes that usually spicy foods, tomato products, juices, coffee, soda and foods that your sensitive to. After eating do not lie down, allow 3-4 hours before in lie down. And keep the head of bed above 30 degrees to avoid the acid from going up. (6) Chronic kidney disease, stage III (moderate): Code(s): N18.30 - Chronic kidney disease, stage 3 unspecified Category: Medical Qualifiers: Chronic kidney disease stage 3 subtype: stage 3a (GFR 45-59) Qualified Code(s): N18.31 - Chronic kidney disease, stage 3a Plan: Keep well hydrated, avoid NSAID and continue to monitor (7) Personal history of nicotine dependence: Comment: (former smoker - onset 17yo, 1ppd x 35yrs, 35pyh, quit 10/2021) Lung cancer screening Code(s): Z87.891 - Personal history of nicotine dependence Category: Medical Plan: Lung cancer screening 05/2025 Plan History of Present Illness The patient is a 55-year-old morbidly obese female presenting for a follow-up visit for management of chronic conditions. Her medical history is significant for hypertension, hypercholesterolemia, gastroesophageal reflux, asthma, chronic kidney disease, peripheral vascular disease, and a history of alcohol abuse. She is a former smoker, having quit approximately three years ago in 2021. Her last colonoscopy in September 2022 revealed a tubular adenoma. Due to her smoking history, a CT scan of the chest was performed in May, which was negative, and is planned to be monitored yearly. She recently underwent a breast biopsy which was benign; however, she developed a hematoma and has residual soreness for which she has a follow-up with the surgeon scheduled. Recent lab work from March showed normal electrolytes, a normal hemoglobin A1c, fine liver function, and mildly elevated triglycerides. Her kidney function was noted to be 1.44 and was reported as up. Her last complete blood count in September was normal with no anemia. The patient reports occasional heartburn but is not taking her prescribed famotidine. She also notes occasional dizziness when standing up too quickly. Health Maintenance The patient was strongly advised to continue smoking cessation. A request form will be provided for fasting blood work to be completed in three months. She is scheduled for a yearly follow-up CT scan for lung cancer screening. She has a follow-up appointment with the surgeon in two days to check on the hematoma from her recent breast biopsy. Social History - Tobacco Use: Former smoker who quit approximately three years ago. - Alcohol Use: History of alcohol abuse. - Diet and Exercise: A plan of diet and exercise was recommended for peripheral vascular disease. Review of Systems - Constitutional: Reports weight loss. - Cardiovascular: Reports occasional dizziness upon standing up too quickly. - Respiratory: Reports a cough. - Gastrointestinal: Reports occasional heartburn. - Breast: Reports soreness from a hematoma following a recent biopsy. Physical Exam - Vitals: Blood pressure 110/60 mmHg. - General: Morbidly obese female. - Weight is 263 pounds. Results - Labs (March): Electrolytes normal, creatinine 1.44, hemoglobin A1c normal, LFTs fine, triglycerides mildly elevated. - Labs (September): Complete blood count was normal with no anemia. - Imaging: Chest CT scan in May was negative. - Pathology: Breast biopsy was benign. - Procedures: Colonoscopy in September 2022 showed a tubular adenoma. Plan Patient was informed and verbally consented to the use of an ambient scribe for clinic note documentation during this visit. 1. Hypertension The patient's blood pressure was 110/60 mmHg, which is considered low, and she reports occasional dizziness upon standing. To avoid hypotension, her lisinopril will be decreased from 10 mg to 5 mg daily. 2. Reflux The patient reports intermittent heartburn. She was educated on lifestyle modifications, including avoiding trigger foods like spicy foods and tomato products, waiting at least 4 hours after eating before lying down, and elevating the head of the bed. She was advised she can use Tums or take her prescribed famotidine on an as-needed basis, and was counseled on the risk of esophageal damage from uncontrolled acid reflux. 3. Hypercholesterolemia Triglycerides were noted to be mildly elevated. The goals are an LDL less than 130 and triglycerides less than 150. The plan includes diet and exercise, with a fasting lipid panel to be rechecked in 3 months. 4. Chronic Kidney Disease The patient's kidney function from March was 1.44, which was noted to be elevated. She was advised to maintain good hydration and avoid NSAIDs. Kidney function will be monitored with follow-up blood work in three months. 5. Peripheral Vascular Disease The plan for management includes diet and exercise. Discussion Notes I informed the patient that her recent CAT scan and breast biopsy results were good and negative for malignancy. We discussed her blood pressure, which was low today at 110/60, and her reports of occasional dizziness. To prevent her blood pressure from going too low, I am reducing her lisinopril dose from 10 mg to 5 mg. We reviewed her lab work, noting a recent elevation in her kidney a number and mildly elevated triglycerides. I provided a request form for her to have fasting blood work done in three months to re-evaluate. We also discussed her heartburn symptoms. I explained the risks of untreated acid reflux, including damage to the esophagus, and provided lifestyle recommendations such as dietary changes and elevating the head of the bed. I advised her that taking famotidine as needed is safe and appropriate if her symptoms persist. I commended her for quitting smoking and for her recent weight loss. She has a follow-up appointment with her surgeon in two days for the post-biopsy hematoma, and we will continue with yearly CT scans for lung screening. Patient Instructions - Reduce your lisinopril blood pressure medication dose from 10 mg to 5 mg once a day. - Get fasting blood work done in three months. You can drink sips of water, but do not eat or drink anything else before the test. - For heartburn, try to avoid spicy foods, tomato products, juices, soda, and coffee. - Wait at least 4 hours after you finish eating before you lie down to sleep. - Try using three or four pillows to elevate your head when you sleep to help with acid reflux. - You can use Tums or take famotidine as needed for heartburn. - Stay well hydrated and avoid taking NSAID medications like ibuprofen. - Continue to not smoke. - Remember to go to your follow-up appointment with the surgeon in two days to check on your breast. Orders: Orders Free T4 (Free Thyroxine) 3 Months I10 - Essential (primary) hypertension Thyroid Stimulating Hormone 3 Months I10 - Essential (primary) hypertension Vitamin B12 and Folate 3 Months I10 - Essential (primary) hypertension Vitamin D 25-OH Total 3 Months I10 - Essential (primary) hypertension Hemoglobin A1c 3 Months I10 - Essential (primary) hypertension UA CC w/rflx Micro + Cult 3 Months I10 - Essential (primary) hypertension, R30.0 - Dysuria Complete Blood Count Auto Diff 3 Months I10 - Essential (primary) hypertension Comprehensive Met. Panel 3 Months I10 - Essential (primary) hypertension Lipid Panel 3 Months E78.00 - Pure hypercholesterolemia, unspecified, I10 - Essential (primary) hypertension Magnesium 3 Months I10 - Essential (primary) hypertension Medications: Changed From lisinopril 10 mg PO DAILY 90 tabs 2RF I10 - Essential (primary) hypertension To lisinopril 5 mg PO DAILY 90 tabs 2RF I10 - Essential (primary) hypertension
--- OUTSIDE RECORDS SUMMARY | 2025-06-26 14:22 | XMS_ITS | Clinical Summary ---
Author Organization [facility] Facility Address [address] [address] Care Team Providers Care Advertising Intern Name Role Phone Tio Conway MD Primary Care Provider [phone] Allergies No known active allergies Medications lisinopril [...] each day 05/24/2023 Active ergocalciferol 1.25 MG (92748 UT) capsule Take 1 capsule (50,000 Units [...] [place] [employer] [place] Care Teams Advertising Intern Relationship Specialty Start Date End Date Tio Conway MD [address] [place], [place] PCP - General 09/09/20
== END 2025-06-26 12:13 | disposition home or self-care (01) ==
LOC: HO.HMCH 11:08
PROVIDERS: PCP Internal Medicine; Visit Provider Internal Medicine
DX: I12.9 Hypertensive chronic kidney disease with stage 1 through stage 4 chronic kidney disease, or unspecified chronic kidney disease (principal); E66.01 Morbid (severe) obesity due to excess calories; N18.31 Chronic kidney disease, stage 3a; Z68.41 Body mass index [BMI] 40.0-44.9, adult; E78.00 Pure hypercholesterolemia, unspecified; I73.9 Peripheral vascular disease, unspecified; K21.9 Gastro-esophageal reflux disease without esophagitis; Z87.891 Personal history of nicotine dependence

== ENCOUNTER → 2025-06-26 11:07 | Outpatient (BNVA) | payer MEDICARE, MEDICAID, SELFPAY | PROVIDERS: PCP Internal Medicine; Visit Provider Internal Medicine | DX: I12.9 Hypertensive chronic kidney disease with stage 1 through stage 4 chronic kidney disease, or unspecified chronic kidney disease (principal); N18.31 Chronic kidney disease, stage 3a; E78.00 Pure hypercholesterolemia, unspecified; I73.9 Peripheral vascular disease, unspecified; E66.01 Morbid (severe) obesity due to excess calories; Z68.41 Body mass index [BMI] 40.0-44.9, adult; K21.9 Gastro-esophageal reflux disease without esophagitis; Z71.3 Dietary counseling and surveillance; Z87.891 Personal history of nicotine dependence | CPT/HCPCS: 99212 ==

== ENCOUNTER 2025-06-28 12:45 | Outpatient (AMB) | payer MEDICARE, MEDICAID, SELFPAY ==
--- NOTE | 2025-06-28 13:00 | MHC.OFFVIS ---
Vital Signs 06/28/25 13:06 Height 5 ft 8 in Weight 265 lb BMI 40.3 BP 120/56 L Blood Pressure Location Rt brachial Position Sitting Pulse 79 Intake Visit Reasons: 2wk follow up hematoma Intake Note: This patient presents for two week follow-up for large area of ecchymosis on the biopsy site. Patient c/o: reports bx site healing but still experiencing on and off sharp pain. Car Record Clerk Required: No Accompanied by: Self / Same As Patient Allergies surgical tape Allergy (Severe, Uncoded 06/28/25 13:07) severe rash Medication List - Last Reconciled 06/28/25 by Michael Parnell MD cyanocobalamin (vitamin B-12) 1,000 mcg PO DAILY ergocalciferol (vitamin D2) 1,250 mcg orally once per month famotidine 20 mg PO BID PRN lisinopril 5 mg PO DAILY metronidazole 0.75% (MetroCream) 1 appl topical BEDTIME mupirocin 2% 1 appl topical BID 7 days thiamine HCl (vitamin B1) 50 mg PO DAILY 90 days zinc 100 mg PO DAILY HPI HPI 2wk follow up hematoma: Details: She had developed a hematoma and ecchymosis on the biopsy site or her right breast. I had seen her 2 weeks ago and external to go ahead and warm compresses to the area. She says this has improved significantly. She does admit that she still has some sharp pains in the area of the biopsy. She denies any fever or chills [facility] Medical History (Updated 06/28/25 @ 13:15 by Michael Parnell MD) Hematoma Abnormal mammogram of right breast Personal history of nicotine dependence Hypersomnia Difficulty sleeping Vision loss, bilateral History of hepatitis C Alcohol abuse Chronic kidney disease, stage III (moderate) Hypertension Hypercholesterolemia Asthma GERD (gastroesophageal reflux disease) Tubular adenoma of colon Tubulovillous adenoma Vitamin D deficiency Obesity Laceration of right breast Breast density Surgical History History of colonoscopy History of cholecystectomy History of excision of lesion History of tracheostomy History of ventriculoperitoneal shunting Family History Father HTN (hypertension) CVD (cardiovascular disease) Myocardial infarct Substance abuse Mother Skin cancer Cancer Maternal Grandmother Breast cancer Brother No problems noted. Sister No problems noted. Other Mental health disorder Social History Household Members: None Housing: Apartment Are you a primary transition of care specialist to a significant other at home: No Do you presently have visiting nurse or other home services: No Alcohol intake: current Alcohol intake frequency: a few times a week Alcohol type: beer Comment: 6 days a week 67 drinks Patient Tobacco Use Status: Former Tobacco user Tobacco use type: Cigarette Years Smoked: (onset 17yo, 1ppd x 35yrs, 35pyh, quit 10/2021) e-Cigarette/Vaping Use: Never Used Second Hand Smoke Exposure: No service: No Current occupational status: disabled Cognitive needs: No Hearing needs: No Vision needs: Yes Female Reproductive History Menstrual Age of Menarche: 11 Review of Systems Const Denies chills and Denies fever(s) Card Denies chest pain at rest Resp Denies cough GI Denies abdominal pain Physical Exam Vital Signs: Last Vital Signs Pulse 79 06/28/25 13:06 BP 120/56 L 06/28/25 13:06 BMI result Body Mass Index 40.3 Const General: comfortable and no acute distress Nutritional Appearance: obese Chest Other: Right breast ecchymosis much improved, mild redness, superficial scabbing on the biopsy site Resp Effort & Inspection: normal respiratory effort Cardio Rate: regular rate Assessment & Plan Assessment & Plan (1) Hematoma: Code(s): T14.8XXA - Other injury of unspecified body region, initial encounter Category: Medical Plan: She had a hematoma and ecchymosis in the biopsy site. This has improved significantly after from compresses She does not need any surgical intervention for this currently She can follow up with me on a p.r.n. basis. Coding Level of Care Code Est Pt Level 2 (94826) Diagnoses Hematoma T14.8XXA
[2025-06-28 13:06] VITALS: BP 120/56; PULSE 79; BMI 40.3
--- OUTSIDE RECORDS SUMMARY | 2025-06-28 15:38 | XMS_ITS | Clinical Summary ---
Author Organization [facility] Facility Address [address] [address] Care Team Providers Care Television Picture Tube Rebuilder Name Role Phone Tio Conway MD Primary Care Provider [phone] Allergies No known active allergies Medications lisinopril [...] each day 05/24/2023 Active ergocalciferol 1.25 MG (51963 UT) capsule Take 1 capsule (50,000 Units [...] [place] [employer] [place] Care Teams Television Picture Tube Rebuilder Relationship Specialty Start Date End Date Tio Conway MD [address] [place], [place] PCP - General 09/09/20
== END 2025-06-28 13:10 | disposition home or self-care (01) ==
LOC: HO.HGS 12:46
PROVIDERS: PCP Internal Medicine; Visit Provider Surgery
DX: T14.8XXD Other injury of unspecified body region, subsequent encounter (principal)
CPT/HCPCS: 99212

== ENCOUNTER → 2025-06-28 12:45 | Outpatient (BNVA) | payer MEDICARE, MEDICAID, SELFPAY | PROVIDERS: PCP Internal Medicine; Visit Provider Surgery | DX: R92.8 Other abnormal and inconclusive findings on diagnostic imaging of breast (principal); T14.8XXS Other injury of unspecified body region, sequela; F10.10 Alcohol abuse, uncomplicated; Z87.891 Personal history of nicotine dependence | CPT/HCPCS: 99212 ==